=== PATIENT | female | born 1940 | race Two or more races ===

== ENCOUNTER 2017-06-14 13:46 | Inpatient (IN) | payer MEDICARE, OTHER ==
[~2017-06-14] VITALS: Ht 167.6 cm; Wt 66.7 kg
[2017-06-14 17:17] VITALS: BP 140/75
[2017-06-14 19:49] LABS: BASOPHILS % (AUTO) 1.5 % (0.0-2.0); EOSINOPHILS % (AUTO) 2.4 % (0.0-3.0); LYMPHOCYTES % (AUTO) 32.5 % (20.0-45.0); MEAN CORPUSCULAR HEMOGLOBIN 30.2 PG (27.0-31.0); MEAN CORPUSCULAR HGB CONC 31.2 G/DL (32.0-36.0); MEAN CORPUSCULAR VOLUME 97 FL (80-99); MEAN PLATELET VOLUME 6.8 FL (6.5-10.1); MONOCYTES % (AUTO) 7.4 % (1.0-10.0); NEUTROPHILS % (AUTO) 56.1 % (45.0-75.0); PLATELET COUNT 205 K/UL (150-450); RED BLOOD COUNT 3.52 M/UL (4.20-5.40); RED CELL DISTRIBUTION WIDTH 16.3 % (11.6-14.8)
[2017-06-14 20:00] VITALS: BP 147/75
[2017-06-14 20:01] LABS: ALANINE AMINOTRANSFERASE 12 U/L (12-78); ANION GAP 12 mmol/L (5-15); ASPARTATE AMINO TRANSFERASE 11 U/L (15-37); CALCIUM 9.1 MG/DL (8.5-10.1); CARBON DIOXIDE 21 MMOL/L (21-32); CHLORIDE 109 MMOL/L (98-107); CREATININE 1.6 MG/DL (0.55-1.30); POTASSIUM 4.3 MMOL/L (3.5-5.1); SODIUM 142 MMOL/L (136-145); TOTAL PROTEIN 6.8 G/DL (6.4-8.2)
[2017-06-14] MEDS ORDERED: Nitroglycerin Subl 0.4mg tab SL PRN (21:15)
[2017-06-14] MEDS ORDERED: Miralax 17gm pkt ORAL PRN (21:15)
[2017-06-14] MEDS ORDERED: Albuterol/Ipratropium 3ml neb HHN PRN (21:15)
[2017-06-14] MEDS ORDERED: LORazepam Inj 2mg/ml 1ml IV PRN (21:15)
[2017-06-14] MEDS ORDERED: Morphine Sulfate 2mg/ml Inj IVP PRN (21:15)
[2017-06-14] MEDS ORDERED: Mylanta II UD 30ml ORAL PRN (21:15)
[2017-06-14] MEDS: NovoLOG Insulin Flexpen SUBQ SCH (23:00)
[2017-06-15] VITALS: BP 125/76
[2017-06-15 04:00] VITALS: BP 151/76
[2017-06-15] MEDS: NovoLOG Insulin Flexpen SUBQ SCH ×4 (06:30→21:00)
[2017-06-15 08:13] LABS: BASOPHILS % (AUTO) 1.5 % (0.0-2.0); EOSINOPHILS % (AUTO) 2.3 % (0.0-3.0); MEAN CORPUSCULAR HEMOGLOBIN 32.2 PG (27.0-31.0); MEAN CORPUSCULAR HGB CONC 34.4 G/DL (32.0-36.0); MEAN CORPUSCULAR VOLUME 94 FL (80-99); MEAN PLATELET VOLUME 7.5 FL (6.5-10.1); MONOCYTES % (AUTO) 7.2 % (1.0-10.0); PLATELET COUNT 216 K/UL (150-450); RED BLOOD COUNT 3.48 M/UL (4.20-5.40); RED CELL DISTRIBUTION WIDTH 16.3 % (11.6-14.8); WHITE BLOOD COUNT 6.2 K/UL (4.8-10.8)
[2017-06-15 08:16] VITALS: BP 147/77
[2017-06-15 08:27] LABS: PROTHROMBIN TIME 10.6 SEC (9.30-11.50)
[2017-06-15 08:34] LABS: ALANINE AMINOTRANSFERASE 11 U/L (12-78); ANION GAP 10 mmol/L (5-15); ASPARTATE AMINO TRANSFERASE 15 U/L (15-37); CALCIUM 8.9 MG/DL (8.5-10.1); CARBON DIOXIDE 24 MMOL/L (21-32); CHLORIDE 109 MMOL/L (98-107); CHOLESTEROL 163 MG/DL (< 200); CHOLESTEROL/HDL RATIO 3.4 (3.3-4.4); CREATININE 1.5 MG/DL (0.55-1.30); POTASSIUM 4.3 MMOL/L (3.5-5.1); SODIUM 143 MMOL/L (136-145); THYROID STIMULATING HORMONE 1.799 uiU/mL (0.360-3.740); TOTAL PROTEIN 6.6 G/DL (6.4-8.2)
[2017-06-15] MEDS: Heparin 5000 units/ml inj SUBQ SCH ×2 (09:00→21:56)
[2017-06-15 11:53] VITALS: BP 108/53
--- NOTE | 2017-06-15 12:23 | Neurology Progress Note ---
Objective Physical Exam Last Vital Signs Date Time Temp Pulse Resp B/P (MAP) Pulse Ox O2 Delivery O2 Flow Rate FiO2 06/15/17 11:53 97.9 118 18 108/53 97 Room Air Laboratory Tests Test 06/14/17 19:30 06/15/17 07:05 White Blood Count 7.0 K/UL (4.8-10.8) 6.2 K/UL (4.8-10.8) Red Blood Count 3.52 M/UL (4.20-5.40) L 3.48 M/UL (4.20-5.40) L Hemoglobin 10.6 G/DL (12.0-16.0) L 11.2 G/DL (12.0-16.0) L Hematocrit 34.1 % (37.0-47.0) L 32.7 % (37.0-47.0) L Mean Corpuscular Volume 97 FL (80-99) 94 FL (80-99) Mean Corpuscular Hemoglobin 30.2 PG (27.0-31.0) 32.2 PG (27.0-31.0) H Mean Corpuscular Hemoglobin Concent 31.2 G/DL (32.0-36.0) L 34.4 G/DL (32.0-36.0) Red Cell Distribution Width 16.3 % (11.6-14.8) H 16.3 % (11.6-14.8) H Platelet Count 205 K/UL (150-450) 216 K/UL (150-450) Mean Platelet Volume 6.8 FL (6.5-10.1) 7.5 FL (6.5-10.1) Neutrophils (%) (Auto) 56.1 % (45.0-75.0) 52.0 % (45.0-75.0) Lymphocytes (%) (Auto) 32.5 % (20.0-45.0) 37.0 % (20.0-45.0) Monocytes (%) (Auto) 7.4 % (1.0-10.0) 7.2 % (1.0-10.0) Eosinophils (%) (Auto) 2.4 % (0.0-3.0) 2.3 % (0.0-3.0) Basophils (%) (Auto) 1.5 % (0.0-2.0) 1.5 % (0.0-2.0) Sodium Level 142 MMOL/L (136-145) 143 MMOL/L (136-145) Potassium Level 4.3 MMOL/L (3.5-5.1) 4.3 MMOL/L (3.5-5.1) Chloride Level 109 MMOL/L (98-107) H 109 MMOL/L (98-107) H Carbon Dioxide Level 21 MMOL/L (21-32) 24 MMOL/L (21-32) Anion Gap 12 mmol/L (5-15) 10 mmol/L (5-15) Blood Urea Nitrogen 34 mg/dL (7-18) H 29 mg/dL (7-18) H Creatinine 1.6 MG/DL (0.55-1.30) H 1.5 MG/DL (0.55-1.30) H Estimat Glomerular Filtration Rate mL/min (>60) mL/min (>60) Glucose Level 174 MG/DL (74-106) H 113 MG/DL (74-106) H Calcium Level 9.1 MG/DL (8.5-10.1) 8.9 MG/DL (8.5-10.1) Total Bilirubin 0.3 MG/DL (0.2-1.0) 0.4 MG/DL (0.2-1.0) Aspartate Amino Transf (AST/SGOT) 11 U/L (15-37) L 15 U/L (15-37) Alanine Aminotransferase (ALT/SGPT) 12 U/L (12-78) 11 U/L (12-78) L Alkaline Phosphatase 68 U/L (46-116) 61 U/L (46-116) Total Protein 6.8 G/DL (6.4-8.2) 6.6 G/DL (6.4-8.2) Albumin 3.4 G/DL (3.4-5.0) 3.3 G/DL (3.4-5.0) L Globulin 3.4 g/dL 3.3 g/dL Albumin/Globulin Ratio 1.0 (1.0-2.7) 1.0 (1.0-2.7) Prothrombin Time 10.6 SEC (9.30-11.50) Prothromb Time International Ratio 1.0 (0.9-1.1) Activated Partial Thromboplast Time 22 SEC (23-33) L Uric Acid Pending Total Creatine Kinase Pending Triglycerides Level 122 MG/DL (0-200) Cholesterol Level 163 MG/DL (< 200) LDL Cholesterol 103 mg/dL (<100) H HDL Cholesterol 48 MG/DL (40-60) Cholesterol/HDL Ratio 3.4 (3.3-4.4) Thyroid Stimulating Hormone (TSH) 1.799 uiU/mL (0.360-3.740) Impression/Recommendations Recommendations # [id number] JESSICA CHRISTOPHER Jun 15, 2017 12:23
[2017-06-15 12:26] LABS: URIC ACID 7.3 MG/DL (2.6-7.2)
--- NOTE | 2017-06-15 13:11 | Diagnostic Imaging Report ---
Indication: Dyspnea Comparison: None A single view chest radiograph was obtained. Findings: Cardiomediastinal appearance is within normal limits for age. Sternotomy is present. Aorta is calcified. Pulmonary vascularity is appropriate. The diaphragmatic contour is smooth and costophrenic angles are sharp. No pleural effusions are identified. The bones are osteopenic. Impression: No acute findings
--- NOTE | 2017-06-15 14:19 | Consultation ---
History of Present Illness General Date patient seen: Jun 15, 2017 Chief Complaint: syncope Reason for Consultation: inpatient management Present Illness HPI 76 year old female with hx of HTN, DM, Stent, CVA, CAD, dementia, was taken by paramedics to [facility] with CC of acute encephalopathy. director of primary care witness some shaking. She urinated on herself as well. The initial evaluation at [place] was negative. She is transferred to [facility] for further evaluation. Pts children are at bed site who are helping with HPI. Pt seems awake, comfortable and can answer simple questions. Allergies: Coded Allergies: No Known Allergies (Unverified , 06/14/17) Patient History Healthcare decision maker N Resuscitation status Full Code Advanced Directive on File Past Medical/Surgical History Past Medical/Surgical History: (1) Diabetes mellitus (2) CAD (coronary artery disease) (3) Dementia Review of Systems All Other Systems: negative except mentioned in HPI Physical Exam General Appearance: WD/WN, lethargic Lines, tubes and drains: peripheral, central line HEENT: normocephalic, atraumatic Neck: non-tender, normal alignment Respiratory/Chest: chest wall non-tender, lungs clear, no respiratory distress Breasts: no masses Cardiovascular/Chest: normal peripheral pulses, regular rhythm Abdomen: normal bowel sounds, non tender Genitourinary/Rectal: normal genital exam, normal rectal exam Extremities: normal range of motion Last 24 Hour Vital Signs Date Time Temp Pulse Resp B/P (MAP) Pulse Ox O2 Delivery O2 Flow Rate FiO2 06/15/17 12:00 80 06/15/17 11:53 97.9 118 18 108/53 97 Room Air 06/15/17 08:16 97.2 76 18 147/77 97 Room Air 06/15/17 08:00 76 06/15/17 04:00 97.0 71 21 151/76 96 Room Air 06/15/17 04:00 88 06/15/17 00:00 93 06/15/17 00:00 98.1 91 20 125/76 97 Room Air 06/14/17 20:00 81 06/14/17 20:00 97.3 83 23 147/75 97 Room Air 06/14/17 17:17 98.1 76 18 140/75 98 Room Air Intake and Output 06/15/17 06/16/17 19:00 07:00 Intake Total 120 ml Balance 120 ml Intake Oral 120 ml # Voids 1 # Bowel Movements 1 Laboratory Tests Test 06/14/17 19:30 06/15/17 07:05 White Blood Count 7.0 K/UL (4.8-10.8) 6.2 K/UL (4.8-10.8) Red Blood Count 3.52 M/UL (4.20-5.40) L 3.48 M/UL (4.20-5.40) L Hemoglobin 10.6 G/DL (12.0-16.0) L 11.2 G/DL (12.0-16.0) L Hematocrit 34.1 % (37.0-47.0) L 32.7 % (37.0-47.0) L Mean Corpuscular Volume 97 FL (80-99) 94 FL (80-99) Mean Corpuscular Hemoglobin 30.2 PG (27.0-31.0) 32.2 PG (27.0-31.0) H Mean Corpuscular Hemoglobin Concent 31.2 G/DL (32.0-36.0) L 34.4 G/DL (32.0-36.0) Red Cell Distribution Width 16.3 % (11.6-14.8) H 16.3 % (11.6-14.8) H Platelet Count 205 K/UL (150-450) 216 K/UL (150-450) Mean Platelet Volume 6.8 FL (6.5-10.1) 7.5 FL (6.5-10.1) Neutrophils (%) (Auto) 56.1 % (45.0-75.0) 52.0 % (45.0-75.0) Lymphocytes (%) (Auto) 32.5 % (20.0-45.0) 37.0 % (20.0-45.0) Monocytes (%) (Auto) 7.4 % (1.0-10.0) 7.2 % (1.0-10.0) Eosinophils (%) (Auto) 2.4 % (0.0-3.0) 2.3 % (0.0-3.0) Basophils (%) (Auto) 1.5 % (0.0-2.0) 1.5 % (0.0-2.0) Sodium Level 142 MMOL/L (136-145) 143 MMOL/L (136-145) Potassium Level 4.3 MMOL/L (3.5-5.1) 4.3 MMOL/L (3.5-5.1) Chloride Level 109 MMOL/L (98-107) H 109 MMOL/L (98-107) H Carbon Dioxide Level 21 MMOL/L (21-32) 24 MMOL/L (21-32) Anion Gap 12 mmol/L (5-15) 10 mmol/L (5-15) Blood Urea Nitrogen 34 mg/dL (7-18) H 29 mg/dL (7-18) H Creatinine 1.6 MG/DL (0.55-1.30) H 1.5 MG/DL (0.55-1.30) H Estimat Glomerular Filtration Rate mL/min (>60) mL/min (>60) Glucose Level 174 MG/DL (74-106) H 113 MG/DL (74-106) H Calcium Level 9.1 MG/DL (8.5-10.1) 8.9 MG/DL (8.5-10.1) Total Bilirubin 0.3 MG/DL (0.2-1.0) 0.4 MG/DL (0.2-1.0) Aspartate Amino Transf (AST/SGOT) 11 U/L (15-37) L 15 U/L (15-37) Alanine Aminotransferase (ALT/SGPT) 12 U/L (12-78) 11 U/L (12-78) L Alkaline Phosphatase 68 U/L (46-116) 61 U/L (46-116) Total Protein 6.8 G/DL (6.4-8.2) 6.6 G/DL (6.4-8.2) Albumin 3.4 G/DL (3.4-5.0) 3.3 G/DL (3.4-5.0) L Globulin 3.4 g/dL 3.3 g/dL Albumin/Globulin Ratio 1.0 (1.0-2.7) 1.0 (1.0-2.7) Prothrombin Time 10.6 SEC (9.30-11.50) Prothromb Time International Ratio 1.0 (0.9-1.1) Activated Partial Thromboplast Time 22 SEC (23-33) L Uric Acid 7.3 MG/DL (2.6-7.2) H Total Creatine Kinase 42 U/L (26-308) Triglycerides Level 122 MG/DL (0-200) Cholesterol Level 163 MG/DL (< 200) LDL Cholesterol 103 mg/dL (<100) H HDL Cholesterol 48 MG/DL (40-60) Cholesterol/HDL Ratio 3.4 (3.3-4.4) Thyroid Stimulating Hormone (TSH) 1.799 uiU/mL (0.360-3.740) Height (Feet): 5 Height (Inches): 6.00 Weight (Pounds): 147 Medications Current Medications Medications (Trade) Dose Ordered Sig/Yoana Route PRN Reason Start Time Stop Time Status Last Admin Dose Admin Acetaminophen (Tylenol) 650 mg Q4H PRN ORAL fever 06/14/17 21:15 07/14/17 21:14 Al Hydroxide/Mg Hydroxide (Mylanta II) 30 ml Q6H PRN ORAL dyspepsia 06/14/17 21:15 07/14/17 21:14 Albuterol/ Ipratropium (DuoNeb 0.5-3(2.5)mg/3ml) 3 ml Q4H PRN HHN Shortness of Breath 06/14/17 21:15 06/19/17 21:14 Clonidine HCl (Catapres) 0.1 mg Q4H PRN ORAL SBP > 160 06/14/17 21:15 07/14/17 21:14 Dextrose (Dextrose 50%) STAT PRN IV Hypoglycemia 06/14/17 21:15 07/14/17 21:14 Heparin Sodium (Porcine) (Heparin 5000 units/ml) 5,000 units EVERY 12 HOURS SUBQ 06/15/17 09:00 07/15/17 08:59 Insulin Aspart (NovoLOG) BEFORE MEALS AND HS SUBQ 06/14/17 23:00 07/14/17 22:59 Lorazepam (Ativan 2mg/ml 1ml) 0.5 mg Q4H PRN IV For Anxiety 06/14/17 21:15 06/21/17 21:14 Morphine Sulfate (Morphine Sulfate) 1 mg Q4H PRN IVP For Pain 7-10 06/14/17 21:15 06/21/17 21:14 Nitroglycerin (Ntg) 0.4 mg Q5M X 3 DOSES PRN SL Prn Chest Pain 06/14/17 21:15 07/14/17 21:14 Ondansetron HCl (Zofran) 4 mg Q6H PRN IVP Nausea & Vomiting 06/14/17 21:15 07/14/17 21:14 Polyethylene Glycol (Miralax) 17 gm HSPRN PRN ORAL Constipation 06/14/17 21:15 07/14/17 21:14 Temazepam (Restoril) 15 mg HSPRN PRN ORAL Insomnia 06/14/17 21:15 06/21/17 21:14 Assessment/Plan Problem List: (1) Syncope ICD Codes: R55 - Syncope and collapse SNOMED: 953818310 (2) Diabetes mellitus ICD Codes: E11.9 - Type 2 diabetes mellitus without complications SNOMED: 75252617 (3) CAD (coronary artery disease) ICD Codes: I25.10 - Atherosclerotic heart disease of [place] coronary artery without angina pectoris SNOMED: 40911139 (4) Dementia ICD Codes: F03.90 - Unspecified dementia without behavioral disturbance SNOMED: 26663730 Assessment/Plan neuro evaluation carotid artey echo cardiology to see sliding scale monitor BP JERI KHAN Jun 15, 2017 14:18
[2017-06-15 15:40] VITALS: BP 105/51
--- NOTE | 2017-06-15 15:42 | Cardiology Progress Note ---
Assessment/Plan Assessment/Plan [id number] check orthosttic vital ekg trop if tele neg consider dc to home to fu with ep for icd implantation as outpt hodzachary burns Objective Last 24 Hour Vital Signs Date Time Temp Pulse Resp B/P (MAP) Pulse Ox O2 Delivery O2 Flow Rate FiO2 06/15/17 12:00 80 06/15/17 11:53 97.9 118 18 108/53 97 Room Air 06/15/17 08:16 97.2 76 18 147/77 97 Room Air 06/15/17 08:00 76 06/15/17 04:00 97.0 71 21 151/76 96 Room Air 06/15/17 04:00 88 06/15/17 00:00 93 06/15/17 00:00 98.1 91 20 125/76 97 Room Air 06/14/17 20:00 81 06/14/17 20:00 97.3 83 23 147/75 97 Room Air 06/14/17 17:17 98.1 76 18 140/75 98 Room Air Intake and Output 06/15/17 06/16/17 19:00 07:00 Intake Total 120 ml Balance 120 ml Intake Oral 120 ml # Voids 1 # Bowel Movements 1 Laboratory Tests Test 06/14/17 19:30 06/15/17 07:05 White Blood Count 7.0 K/UL (4.8-10.8) 6.2 K/UL (4.8-10.8) Red Blood Count 3.52 M/UL (4.20-5.40) L 3.48 M/UL (4.20-5.40) L Hemoglobin 10.6 G/DL (12.0-16.0) L 11.2 G/DL (12.0-16.0) L Hematocrit 34.1 % (37.0-47.0) L 32.7 % (37.0-47.0) L Mean Corpuscular Volume 97 FL (80-99) 94 FL (80-99) Mean Corpuscular Hemoglobin 30.2 PG (27.0-31.0) 32.2 PG (27.0-31.0) H Mean Corpuscular Hemoglobin Concent 31.2 G/DL (32.0-36.0) L 34.4 G/DL (32.0-36.0) Red Cell Distribution Width 16.3 % (11.6-14.8) H 16.3 % (11.6-14.8) H Platelet Count 205 K/UL (150-450) 216 K/UL (150-450) Mean Platelet Volume 6.8 FL (6.5-10.1) 7.5 FL (6.5-10.1) Neutrophils (%) (Auto) 56.1 % (45.0-75.0) 52.0 % (45.0-75.0) Lymphocytes (%) (Auto) 32.5 % (20.0-45.0) 37.0 % (20.0-45.0) Monocytes (%) (Auto) 7.4 % (1.0-10.0) 7.2 % (1.0-10.0) Eosinophils (%) (Auto) 2.4 % (0.0-3.0) 2.3 % (0.0-3.0) Basophils (%) (Auto) 1.5 % (0.0-2.0) 1.5 % (0.0-2.0) Sodium Level 142 MMOL/L (136-145) 143 MMOL/L (136-145) Potassium Level 4.3 MMOL/L (3.5-5.1) 4.3 MMOL/L (3.5-5.1) Chloride Level 109 MMOL/L (98-107) H 109 MMOL/L (98-107) H Carbon Dioxide Level 21 MMOL/L (21-32) 24 MMOL/L (21-32) Anion Gap 12 mmol/L (5-15) 10 mmol/L (5-15) Blood Urea Nitrogen 34 mg/dL (7-18) H 29 mg/dL (7-18) H Creatinine 1.6 MG/DL (0.55-1.30) H 1.5 MG/DL (0.55-1.30) H Estimat Glomerular Filtration Rate mL/min (>60) mL/min (>60) Glucose Level 174 MG/DL (74-106) H 113 MG/DL (74-106) H Calcium Level 9.1 MG/DL (8.5-10.1) 8.9 MG/DL (8.5-10.1) Total Bilirubin 0.3 MG/DL (0.2-1.0) 0.4 MG/DL (0.2-1.0) Aspartate Amino Transf (AST/SGOT) 11 U/L (15-37) L 15 U/L (15-37) Alanine Aminotransferase (ALT/SGPT) 12 U/L (12-78) 11 U/L (12-78) L Alkaline Phosphatase 68 U/L (46-116) 61 U/L (46-116) Total Protein 6.8 G/DL (6.4-8.2) 6.6 G/DL (6.4-8.2) Albumin 3.4 G/DL (3.4-5.0) 3.3 G/DL (3.4-5.0) L Globulin 3.4 g/dL 3.3 g/dL Albumin/Globulin Ratio 1.0 (1.0-2.7) 1.0 (1.0-2.7) Prothrombin Time 10.6 SEC (9.30-11.50) Prothromb Time International Ratio 1.0 (0.9-1.1) Activated Partial Thromboplast Time 22 SEC (23-33) L Uric Acid 7.3 MG/DL (2.6-7.2) H Total Creatine Kinase 42 U/L (26-308) Triglycerides Level 122 MG/DL (0-200) Cholesterol Level 163 MG/DL (< 200) LDL Cholesterol 103 mg/dL (<100) H HDL Cholesterol 48 MG/DL (40-60) Cholesterol/HDL Ratio 3.4 (3.3-4.4) Thyroid Stimulating Hormone (TSH) 1.799 uiU/mL (0.360-3.740) HIRO GABRIEL Jun 15, 2017 15:42
--- NOTE | 2017-06-15 15:47 | Diagnostic Imaging Report ---
Indication: Altered mental status Technique: Contiguous 5 mm thick transaxial imaging of the head obtained in a Siemens Sensation [address] scanner. Soft tissue and bone windows generated. Total Dose length Product (DLP): [address] Dose Index Volume (CTDIvol): 70.38, 0.15 mGy Comparison: none Findings: The ventricles are large and disproportionately large compared to the degree of atrophy present which is mild. Possibility of normal pressure hydrocephalus should be considered. There is a cavum septum pellucida noted. There is no mass effect or edema. There is no midline shift. There is no acute intracranial blood identified. Vascular calcifications within the intracranial carotid and vertebral arteries noted. Impression: Consider normal pressure hydrocephalus given disproportionate ventriculomegaly. Mild atrophy is noted. Atherosclerotic disease The CT scanner at [facility] is accredited by the [employer] and the scans are performed using dose optimization techniques as appropriate to a performed exam including Automatic Exposure control.
--- NOTE | 2017-06-15 16:11 | History & Physical ---
History and Physical History & Physicial Dictated for Int Med-Dr Beckman no. [id number] TRIPP RODRIGUEZ Jun 15, 2017 16:11
--- NOTE | 2017-06-15 16:12 | Diagnostic Imaging Report ---
Indication:Elevated Bun and Creatinine. Technique: Grayscale and duplex Doppler imaging of the kidneys performed. Comparison: None Findings: The size, contour, and echogenicity of both kidneys are within normal limits. Both kidneys are between 9 and 10 cm. There is no hydronephrosis. The IVC and urinary bladder are unremarkable. Impression: Negative study
[2017-06-15] MEDS ORDERED: NovoLOG Insulin Flexpen SUBQ SCH (16:30)
--- NOTE | 2017-06-15 16:56 | Cardiac Electrophysiology PN ---
Subjective Subjective EP consult dictated. 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 Evaluated by EP at [facility] also and was bening scheduled for ICD implant. DW family re their choice of having it done at [facility]. They will make the decision. Objective Last 24 Hour Vital Signs Date Time Temp Pulse Resp B/P (MAP) Pulse Ox O2 Delivery O2 Flow Rate FiO2 06/15/17 15:40 97.0 84 18 105/51 96 Room Air 06/15/17 12:00 80 06/15/17 11:53 97.9 118 18 108/53 97 Room Air 06/15/17 08:16 97.2 76 18 147/77 97 Room Air 06/15/17 08:00 76 06/15/17 04:00 97.0 71 21 151/76 96 Room Air 06/15/17 04:00 88 06/15/17 00:00 93 06/15/17 00:00 98.1 91 20 125/76 97 Room Air 06/14/17 20:00 81 06/14/17 20:00 97.3 83 23 147/75 97 Room Air 06/14/17 17:17 98.1 76 18 140/75 98 Room Air Intake and Output 06/15/17 06/16/17 19:00 07:00 Intake Total 240 ml Balance 240 ml Intake Oral 240 ml # Voids 2 # Bowel Movements 1 Laboratory Tests Test 06/14/17 19:30 06/15/17 07:05 White Blood Count 7.0 K/UL (4.8-10.8) 6.2 K/UL (4.8-10.8) Red Blood Count 3.52 M/UL (4.20-5.40) L 3.48 M/UL (4.20-5.40) L Hemoglobin 10.6 G/DL (12.0-16.0) L 11.2 G/DL (12.0-16.0) L Hematocrit 34.1 % (37.0-47.0) L 32.7 % (37.0-47.0) L Mean Corpuscular Volume 97 FL (80-99) 94 FL (80-99) Mean Corpuscular Hemoglobin 30.2 PG (27.0-31.0) 32.2 PG (27.0-31.0) H Mean Corpuscular Hemoglobin Concent 31.2 G/DL (32.0-36.0) L 34.4 G/DL (32.0-36.0) Red Cell Distribution Width 16.3 % (11.6-14.8) H 16.3 % (11.6-14.8) H Platelet Count 205 K/UL (150-450) 216 K/UL (150-450) Mean Platelet Volume 6.8 FL (6.5-10.1) 7.5 FL (6.5-10.1) Neutrophils (%) (Auto) 56.1 % (45.0-75.0) 52.0 % (45.0-75.0) Lymphocytes (%) (Auto) 32.5 % (20.0-45.0) 37.0 % (20.0-45.0) Monocytes (%) (Auto) 7.4 % (1.0-10.0) 7.2 % (1.0-10.0) Eosinophils (%) (Auto) 2.4 % (0.0-3.0) 2.3 % (0.0-3.0) Basophils (%) (Auto) 1.5 % (0.0-2.0) 1.5 % (0.0-2.0) Sodium Level 142 MMOL/L (136-145) 143 MMOL/L (136-145) Potassium Level 4.3 MMOL/L (3.5-5.1) 4.3 MMOL/L (3.5-5.1) Chloride Level 109 MMOL/L (98-107) H 109 MMOL/L (98-107) H Carbon Dioxide Level 21 MMOL/L (21-32) 24 MMOL/L (21-32) Anion Gap 12 mmol/L (5-15) 10 mmol/L (5-15) Blood Urea Nitrogen 34 mg/dL (7-18) H 29 mg/dL (7-18) H Creatinine 1.6 MG/DL (0.55-1.30) H 1.5 MG/DL (0.55-1.30) H Estimat Glomerular Filtration Rate mL/min (>60) mL/min (>60) Glucose Level 174 MG/DL (74-106) H 113 MG/DL (74-106) H Calcium Level 9.1 MG/DL (8.5-10.1) 8.9 MG/DL (8.5-10.1) Total Bilirubin 0.3 MG/DL (0.2-1.0) 0.4 MG/DL (0.2-1.0) Aspartate Amino Transf (AST/SGOT) 11 U/L (15-37) L 15 U/L (15-37) Alanine Aminotransferase (ALT/SGPT) 12 U/L (12-78) 11 U/L (12-78) L Alkaline Phosphatase 68 U/L (46-116) 61 U/L (46-116) Total Protein 6.8 G/DL (6.4-8.2) 6.6 G/DL (6.4-8.2) Albumin 3.4 G/DL (3.4-5.0) 3.3 G/DL (3.4-5.0) L Globulin 3.4 g/dL 3.3 g/dL Albumin/Globulin Ratio 1.0 (1.0-2.7) 1.0 (1.0-2.7) Prothrombin Time 10.6 SEC (9.30-11.50) Prothromb Time International Ratio 1.0 (0.9-1.1) Activated Partial Thromboplast Time 22 SEC (23-33) L Uric Acid 7.3 MG/DL (2.6-7.2) H Total Creatine Kinase 42 U/L (26-308) Triglycerides Level 122 MG/DL (0-200) Cholesterol Level 163 MG/DL (< 200) LDL Cholesterol 103 mg/dL (<100) H HDL Cholesterol 48 MG/DL (40-60) Cholesterol/HDL Ratio 3.4 (3.3-4.4) Thyroid Stimulating Hormone (TSH) 1.799 uiU/mL (0.360-3.740) ULISES ALVAREZ Jun 15, 2017 16:56
[2017-06-15] MEDS: Nateglinide 60mg tab ORAL SCH (17:00)
[2017-06-15 18:01] LABS: APPEARANCE,URINE CLEAR; KETONES,URINE NEGATIVE (NEGATIVE); LEUKOCYTE ESTERASE ,URINE 1+ (NEGATIVE); NITRITE,URINE NEGATIVE (NEGATIVE); PH,URINE 5 (4.5-8.0); PROTEIN,URINE NEGATIVE (NEGATIVE); UROBILINOGEN,URINE NORMAL MG/DL (0.0-1.0)
[2017-06-15] MEDS: Aspirin Baby 81mg ORAL SCH (18:10)
[2017-06-15 18:34] LABS: AMORPHOUS SEDIMENT,UR FEW /LPF; BACTERIA,URINE FEW /HPF; SQUAMOUS EPITHELIAL CELL,UR FEW /LPF (NONE/OCC)
[2017-06-15 20:24] VITALS: BP 119/57
--- NOTE | 2017-06-15 22:00 | History and Physical Report ---
DATE OF ADMISSION: 06/14/2017 CHIEF COMPLAINT: The patient is a 76-year-old female, presents with chief complaint of "I passed out." HISTORY OF PRESENT ILLNESS: The patient has a history of coronary artery disease. The patient is status post coronary artery bypass graft with subsequent stent placement. The patient was at home with her daughter yesterday, 06/14/2017. The patient's slumped over after breakfast. This lasted a few minutes. A 911 was called. Upon arrival by EMS, the patient was alert again. The patient was initially transported to [facility] emergency room. The patient is transferred to [facility] for insurance purposes. The patient is admitted for syncopal episode to rule out acute cerebrovascular accident versus acute myocardial infarction. REVIEW OF SYSTEMS: CONSTITUTIONAL: The patient denies weight loss or weight gain. The patient denies fevers or chills. HEENT: The patient denies ear or throat pain. The patient denies headache. CARDIOVASCULAR: The patient denies palpitations or chest pain. CHEST: The patient denies wheezes or shortness of breath. ABDOMINAL: The patient denies nausea, vomiting, diarrhea, or constipation. GENITOURINARY: The patient denies dysuria or increased frequency of urination. NEUROMUSCULAR: The patient complains of syncopal episode as above. The patient denies seizures or generalized weakness. PAST MEDICAL HISTORY: Significant for: 1. Cerebrovascular accident in 10/2016. 2. Diabetes type 2. 3. Coronary artery disease. 4. Congestive heart failure with an ejection fraction of 20%. PAST SURGICAL HISTORY: Significant for coronary artery bypass graft. CURRENT MEDICATIONS: 1. Lasix of unknown dose daily. 2. Plavix of unknown dose daily ALLERGIES: No known drug allergies. SOCIAL HISTORY: The patient is single. The patient lives with her adult daughter, Archana Harding. The patient denies tobacco or alcohol use. PHYSICAL EXAMINATION: VITAL SIGNS: Temperature 97.0, respirations 21, pulse 80, and blood pressure 151/76. GENERAL: The patient is a well-developed and well-nourished female, in no apparent distress. HEENT: Eyes, pupils are equal and responsive to light and accommodation. Extraocular movements are intact. NECK: Supple without lymphadenopathy. CHEST: Lungs are clear to auscultation bilaterally without wheezes or rales. CARDIOVASCULAR: Regular rhythm and rate. S1 and S2 normal without murmurs, rubs, or gallops. ABDOMEN: Soft, nontender, and nondistended. Positive bowel sounds. No evidence of hepatosplenomegaly. Currently, no rebound or guarding noted. EXTREMITIES: Negative for clubbing, cyanosis, or edema. RECTAL/GENITAL: Refused. NEUROLOGIC: Cranial nerves II through XII are grossly intact without focal deficits. Motor strength is 5/5 bilaterally. Deep tendon reflexes are 2+ plantar. LABORATORY STUDIES: WBC is 7.2, hemoglobin 10.6, hematocrit 34.1, and platelets 205,000. Sodium 142, potassium 4.3, chloride 109, CO2 21, BUN 31, creatinine 1.6, and glucose 174. Troponin and BNP are pending. A 12-lead EKG is pending. ASSESSMENT: This is a 76-year-old female with: 1. Syncopal episode. 2. Coronary artery disease. 3. History of cerebrovascular disease. 4. Diabetes type 2. 5. Congestive heart failure. TREATMENT: 1. Syncopal episode. A Neurology consultation has been obtained with Dr. Ortiz. An MRI of the brain is pending. We will follow recommendations of Dr. Ortiz. 2. Coronary artery disease/congestive heart failure. Cardiology consultation has been obtained with Dr. Maik Us. We will follow recommendations of Cardiology. Serial troponin levels will be run. 3. Diabetes type 2. NovoLog sliding scale has been instituted. Myron Diaz M.D. DR: BON JOB#: [id number] CC:
[2017-06-16 00:18] VITALS: BP 131/72
[2017-06-16 04:00] VITALS: BP 129/67
[2017-06-16] MEDS: NovoLOG Insulin Flexpen SUBQ SCH ×4 (06:30→21:00)
[2017-06-16] MEDS: Nateglinide 60mg tab ORAL SCH ×3 (06:46→18:08)
--- NOTE | 2017-06-16 07:34 | Cardiology Progress Note ---
Assessment/Plan Assessment/Plan ? loc / syncope cm cad hs tele reviewed over nite neg orthostatic ordered yest not yet doen will reorder agree with the need for icd implantation d/w dr livingston last nite who offered to implant this admisiion her however dtr indicates they have to make plans with in the family and for post op care and do not wish to have done here at this time await result of other test Subjective Cardiovascular: Denies: chest pain, lightheadedness Respiratory: Denies: shortness of breath Gastrointestinal/Abdominal: Denies: abdominal pain Genitourinary: Denies: burning Objective Last 24 Hour Vital Signs Date Time Temp Pulse Resp B/P (MAP) Pulse Ox O2 Delivery O2 Flow Rate FiO2 06/16/17 04:00 74 06/16/17 04:00 97.7 80 19 129/67 97 Room Air 06/16/17 00:18 97.7 73 18 131/72 97 Room Air 06/16/17 00:00 98 06/15/17 20:24 97.6 83 18 119/57 95 Room Air 06/15/17 20:00 98 06/15/17 19:50 83 18 Room Air 06/15/17 16:00 75 06/15/17 15:40 97.0 84 18 105/51 96 Room Air 06/15/17 12:00 80 06/15/17 11:53 97.9 118 18 108/53 97 Room Air 06/15/17 08:16 97.2 76 18 147/77 97 Room Air 06/15/17 08:00 76 General Appearance: no apparent distress, alert Cardiovascular: normal rate, regular rhythm Respiratory/Chest: lungs clear Abdomen: normal bowel sounds, non tender, soft Extremities: no swelling Laboratory Tests Test 06/15/17 16:55 06/15/17 17:00 Troponin I 0.028 ng/mL (0.000-0.056) Urine Color Yellow Urine Appearance Clear Urine pH 5 (4.5-8.0) Urine Specific [place] 1.015 (1.005-1.035) Urine Protein Negative (NEGATIVE) Urine Glucose (UA) Negative (NEGATIVE) Urine Ketones Negative (NEGATIVE) Urine Occult Blood 3+ (NEGATIVE) H Urine Nitrite Negative (NEGATIVE) Urine Bilirubin Negative (NEGATIVE) Urine Urobilinogen Normal MG/DL (0.0-1.0) Urine Leukocyte Esterase 1+ (NEGATIVE) H Urine RBC 5-10 /HPF (0 - 2) H Urine WBC 2-4 /HPF (0 - 2) Urine Squamous Epithelial Cells Few /LPF (NONE/OCC) Urine Amorphous Sediment Few /LPF (NONE) H Urine Bacteria Few /HPF (NONE) Urine Eosinophils None seen Urine Random Sodium 60 MEQ/L (20-110) Urine Potassium Timed 51 mmol/L (12-62) HIRO GABRIEL Jun 16, 2017 07:34
[2017-06-16 08:00] VITALS: BP 120/62
[2017-06-16 08:17] LABS: BASOPHILS % (AUTO) 1.2 % (0.0-2.0); EOSINOPHILS % (AUTO) 2.7 % (0.0-3.0); LYMPHOCYTES % (AUTO) 41.9 % (20.0-45.0); MEAN CORPUSCULAR HEMOGLOBIN 31.6 PG (27.0-31.0); MEAN CORPUSCULAR HGB CONC 33.8 G/DL (32.0-36.0); MEAN CORPUSCULAR VOLUME 93 FL (80-99); MEAN PLATELET VOLUME 7.6 FL (6.5-10.1); MONOCYTES % (AUTO) 6.9 % (1.0-10.0); NEUTROPHILS % (AUTO) 47.4 % (45.0-75.0); PLATELET COUNT 201 K/UL (150-450); RED BLOOD COUNT 3.44 M/UL (4.20-5.40); RED CELL DISTRIBUTION WIDTH 16.1 % (11.6-14.8); WHITE BLOOD COUNT 5.8 K/UL (4.8-10.8)
--- NOTE | 2017-06-16 08:30 | Consultation ---
DATE OF CONSULTATION: 06/15/2017 NEUROLOGICAL CONSULTATION CONSULTING PHYSICIAN: Francis Ortiz M.D. REQUESTING PHYSICIAN: Kishan Beckman M.D. HISTORY OF PRESENT ILLNESS: This 76-year-old female seen in neurological consultation to evaluate the new onset of transient unresponsiveness. According to the patient's family who was present during this examination now that yesterday she was having her breakfast sitting at the table when suddenly she became unresponsive. She was described as being loudly snoring, drooling from her mouth, and shaking. Paramedics were called to the scene. Her blood pressure was systolic 107. She was brought to [facility] where her blood pressure was remaining 102/53. She was afebrile. At the time of arrival, she was alert and oriented. She was suspected to have syncope and transported to this facility for further assessment and treatment. Lab work was obtained. Chemistry panel included BUN of 24, creatinine 1.6, blood sugar 174. Normal TSH. CBC study with hemoglobin 10.6, hematocrit 34.1. Normal coagulation. Since admission until present, there were no further paroxysmal events detected. EKG normal sinus rhythm, rate of 80, suggestive of left bundle-branch block. Chest x-ray, no acute abnormalities, no infiltrate. PAST MEDICAL HISTORY: The patient has a significant cardiac abnormality with CHF, coronary artery disease status post stenting, she is pending defibrillation implant. She had old stroke with occasional shaking in her left upper extremity and history of hypertension. MEDICATIONS: Treatment included Lasix and Plavix. Current treatment also included Plavix, Starlix, ProAmatine, Megace, aspirin. SOCIAL HISTORY: Her daily activities are quite limited. She is using a walker or a cane for moving around the apartment. FAMILY HISTORY: Noncontributory. REVIEW OF SYSTEMS: Currently patient is feeling well. She indicates slight forgetfulness, but no headache, no dizziness. Currently no chest pain, no palpitations, but admitted having some shortness of breath on exertion. She has a difficulty ambulation for several years, using a cane or a walker. PHYSICAL EXAMINATION: GENERAL: A well-developed, well-nourished, pleasant lady, not in acute distress, lying comfortably in bed. VITAL SIGNS: Stable, blood pressure 108/53, temperature . HEENT: Head is normocephalic. No evidence of trauma. Eyes, ears, and throat are clear. NECK: Supple. No meningeal signs. MUSCULOSKELETAL: Unremarkable. There are no deformities. Peripheral pulses 1+ and symmetric. MENTAL STATUS: The patient is alert and oriented x3. Speech is fluent. Language intact. She is somewhat forgetful, poor historian, but pleasant and cooperative. CRANIAL NERVE II: Pupils both responding to light and accommodation. Extraocular movements intact. No nystagmus. CRANIAL NERVE V: Normal corneal responses. CRANIAL NERVE VII: No facial asymmetry. CRANIAL NERVE VIII: Slight decrease in hearing. CRANIAL NERVE IX THROUGH XII: Tongue is in midline. Symmetric palate elevation. MOTOR EXAMINATION: Able to lift both arms against the gravity. There is a slight postural tremor, left arm. Deep tendon reflexes 1+ and symmetric. Plantar responses flexor. Sensory examination, normal to pinprick. Gait not tested, but reported able to ambulate with a walker. IMPRESSION: 1. Transient episodes resembling generalized seizure, rule out a syncopal episode with a seizure component. 2. Hypotension. 3. Coronary artery disease. 4. Hyperlipidemia. RECOMMENDATIONS: 1. Check orthostatic blood pressure. 2. Continue with cardiac monitoring. 3. Continue with the treatment including aspirin, Plavix, and statins. 4. Check electroencephalogram. If positive for seizure activities, we will suggest prophylactic treatment. Thank you for allowing me to see this interesting patient in neurological consultation. Francis Ortiz M.D. DR: Arturo JOB#: [id number] CC:
--- NOTE | 2017-06-16 08:31 | Consultation ---
DATE OF CONSULTATION: 06/15/2017 CARDIAC ELECTROPHYSIOLOGY CONSULTATION CONSULTING PHYSICIAN: Jatinder Childs M.D. REFERRING PHYSICIAN: Kishan Beckman M.D. REASON FOR CONSULTATION: Consideration for defibrillator implantation. HISTORY OF PRESENT ILLNESS: The patient is a 76-year-old lady with history of hypertension, diabetes, and coronary artery disease with history of coronary artery bypass graft x2 as well as severe cardiomyopathy with ejection fraction of 28%. The patient is under a cardiology care of Dr. Deleon, who also was evaluated [address] Taniya Gibson from electrophysiology perspective and has already been scheduled to undergo a defibrillator implantation. The patient, however, had a syncopal episode and was taken to [facility] and then was transferred to [facility] for further evaluation and management. An electrophysiology consultation was requested for consideration of defibrillator implantation. PAST MEDICAL HISTORY: 1. Hypertension. 2. Diabetes. 3. Coronary artery disease with history of coronary artery bypass graft x2. 4. Severe ischemic cardiomyopathy with ejection fraction of 28% based on echocardiogram at [facility]. 5. History of spinal cord gliosis. 6. Dementia of Alzheimer's . SOCIAL HISTORY: She lives at home. The daughter is very involved. Does not smoke or drink alcohol. REVIEW OF SYSTEMS: Review of systems was performed and was negative other than what was mentioned in the history of present illness. PHYSICAL EXAMINATION: VITAL SIGNS: Blood pressure 105/51, pulse 84, respirations 18, and she is afebrile. HEAD AND NECK: Shows no JVD. LUNGS: Clear. CARDIOVASCULAR: Shows regular S1 and S2 with no gallop. Sternotomy is intact. ABDOMEN: Soft. EXTREMITIES: No pitting edema. LABORATORY DATA: Labs show white count 6.2, hemoglobin 11.2, hematocrit 32.7, and platelet count of 216. Sodium 142, potassium 4.3, BUN of 29, creatinine 1.5, and glucose of 113. INR is 1. ASSESSMENT AND PLAN: 1. Syncopal episode in a patient with severe ischemic cardiomyopathy with ejection fraction of 28% as well as the patient has coronary artery bypass graft. I agree with Dr. Gibson, who is fertilizer loader, saw the patient at [facility]. I will discuss this with the patient's primary supervisor offset plate preparation, Dr. Deleon regarding discharging the patient home for ICD implantation or transfer the patient to [facility] for defibrillator implantation or proceeding with defibrillator implantation at [facility]. Depending on the patient and patient's daughter decision, as well as Dr. Beckman, her primary care at [place], as well as Dr. Deleon, the patient's supervisor offset plate preparation as an outpatient, we will make the appropriate arrangement. 2. History of coronary artery disease with history of coronary artery bypass graft. 3. The patient is on aspirin and Plavix. 4. 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 The patient's blood pressure is too low and she is actually on midodrine and Lasix. 5. Diabetes. 6. History of cerebrovascular accident. Thank you very much, Dr. Beckman, for allowing me to participate in the care of this patient. Please do not hesitate to contact me for any questions regarding my evaluation. Jatinder Childs M.D. DR: ADRIAN JOB#: [id number] CC:
--- NOTE | 2017-06-16 08:31 | Consultation ---
DATE OF CONSULTATION: 06/15/2017 CARDIOLOGY CONSULTATION CONSULTING PHYSICIAN: Maik Us M.D. REFERRING PHYSICIAN: Doris Canales M.D. ATTENDING PHYSICIAN: Kishan Beckman M.D. REASON FOR REFERRAL: Questionable syncope. HISTORY OF PRESENT ILLNESS: This is a 76-year-old female, whose information was obtained from the patient's family members at bedside, mainly her daughter. There is a question whether the patient had actually very short momentary episode of loss of consciousness or actually less responsiveness while eating, was felt to possibly be sleeping, and slowly woke up. Eventually, paramedics were summoned. Apparently, no notation was made that the patient was hypotensive. She was taken to the emergency room at [facility] where she was evaluated at that facility and the workups were negative and the patient was transferred out of [facility] for insurance reasons, being admitted to [facility] for that particular reason. Blood pressure readings at [facility] have been documented as 150/51 to 130/53. No hypotension or bradycardia was documented at that facility prior to her being eventually discharged to [facility]. Unfortunately, law researcher run sheet is not available, but according to the patient's family members, there may not have been significant loss of consciousness as she was woken up quickly and responded, although slow to respond. No seizure activity being documented. PAST MEDICAL HISTORY: According to [facility] records is positive for history of anemia, diabetes mellitus, significant mitral regurgitation, ischemic cardiomyopathy, hyperlipidemia, syncope, cerebrovascular accident, and gastroesophageal reflux disease. She has been seen by Dr. Gibson and Dr. Deleon, and the possible plans for placement of a defibrillator were being entertained according to the family members. She also has a history of coronary artery disease, for which she has underwent a coronary artery bypass grafting in 2007 and may have had some stents postoperatively and she has been diagnosed with orthostatic hypotension as well and she has been on midodrine according to the records from [facility]. Her ejection fraction has been 28% to 36%. She has early stages of dementia and spinal cord gliosis as well as fatigue and chronic kidney disease stage 3 according to the [facility] records. MEDICATIONS: Her medications are listed, however, apparently depending on her blood pressure, some of the medications may be withheld. ALLERGIES: She is not allergic to any medications. SOCIAL HISTORY: She does not smoke or drink alcoholic beverages and no drug use. She lives at home with her family members. REVIEW OF SYSTEMS: CARDIAC: She does not have any PND or orthopnea, although she has several pillows, sometimes she lays on her side without any pillows. There is no PND. There is no palpitation. There is no pain, pressure, or tightness in her chest. No shortness of breath except rarely when she exerts herself and at those times, the family members will give her some small dose of diuretics rarely. GASTROINTESTINAL: She denies. GENITOURINARY: She denies. PULMONARY: She denies. CONSTITUTIONAL: She denies. NEUROLOGICAL: She denies, although she has had some problems with balance. PHYSICAL EXAMINATION: GENERAL: Physical examination shows her to be elderly female, in no respiratory distress. NECK: Supple. No jugular venous distention. LUNGS: Clear to auscultation and percussion. CARDIAC: Regular rate and rhythm. No heaves, thrills, gallops, or rubs are noted. ABDOMEN: Soft and nontender. Positive bowel sounds. EXTREMITIES: There is no clubbing, cyanosis, nor is there any edema. NEUROLOGIC: She is awake, alert, responsive, and in no respiratory distress. LABORATORY VALUES AND DIAGNOSTIC DATA: White count of 6.3, hemoglobin 11.2, and platelet count of 316,000. Sodium 143, potassium 4.3, chloride 109, bicarbonate 24, BUN of 29, creatinine 1.5, and glucose of 115. Uric acid 7.3. Liver function tests are all normal. CK of 42 and TSH of 1.79. Total cholesterol is 163, LDL of 103 and HDL of 48. No cardiac enzymes are documented. INR 1.0 and a PTT of 22. IMAGING: Chest x-ray was performed that showed no acute findings. She also had a carotid duplex that showed anywhere between 40% to 50% stenoses of her carotid arteries. An electrocardiogram is not available for review. The rhythm strip is available from [place] that shows sinus rhythm. I am unable to locate any electrocardiograms in this chart. Her telemetry data shows sinus rhythm with some intraventricular conduction delay. ASSESSMENT AND PLAN: 1. Questionable syncope. 2. History of orthostatic hypotension. 3. History of ischemic cardiomyopathy, being considered for possible intracardiac defibrillator placement. 4. Coronary artery disease, status post coronary artery bypass grafting, and . 5. Diabetes mellitus. 6. Chronic kidney disease stage 3. 7. History of hypertension. Dr. Canales, this patient was seen in cardiac consultation. Medications have been reviewed. The patient is on Entresto as well as occasional doses of diuretics. The fact that she was not hypotensive at the time of being found by the paramedics indicates maybe she was not orthostatic. Those blood pressure readings at [facility] also go against an episode of orthostatic hypotension, although it does not exclude that. I would recommend checking the orthostatic vitals. Serial cardiac enzymes will be repeated here. She is known to have ischemic cardiomyopathy with low ejection fraction on prior occasions. Entresto may also be causing her low blood pressure at times as well and the family members have plans withholding of medications should that occur. If she does not have any more arrhythmias and if her blood pressure is stable, I would favor her being discharged to have a followup appointment with her game design instructor as outpatient to see about possible ICD implantation in the future. Maik Us M.D. DR: JOHNATHAN JOB#: [id number] CC:
[2017-06-16 08:52] LABS: ANION GAP 3 mmol/L (5-15); CALCIUM 8.9 MG/DL (8.5-10.1); CARBON DIOXIDE 23 MMOL/L (21-32); CHLORIDE 108 MMOL/L (98-107); CREATININE 1.4 MG/DL (0.55-1.30); POTASSIUM 4.1 MMOL/L (3.5-5.1); SODIUM 134 MMOL/L (136-145)
[2017-06-16] MEDS: Heparin 5000 units/ml inj SUBQ SCH ×2 (09:00→21:21)
[2017-06-16] MEDS: Aspirin Baby 81mg ORAL SCH (09:01)
--- NOTE | 2017-06-16 10:45 | Internal Med Progress Note ---
Subjective Date of Service: Jun 16, 2017 Physician Name Myron Rodriguez Attending Physician Kishan Beckman MD Current Medications Medications (Trade) Dose Ordered Sig/Yoana Route PRN Reason Start Time Stop Time Status Last Admin Dose Admin Acetaminophen (Tylenol) 650 mg Q4H PRN ORAL fever 06/14/17 21:15 07/14/17 21:14 Al Hydroxide/Mg Hydroxide (Mylanta II) 30 ml Q6H PRN ORAL dyspepsia 06/14/17 21:15 07/14/17 21:14 Albuterol/ Ipratropium (DuoNeb 0.5-3(2.5)mg/3ml) 3 ml Q4H PRN HHN Shortness of Breath 06/14/17 21:15 06/19/17 21:14 Aspirin (ASA) 81 mg DAILY ORAL 06/15/17 17:00 07/15/17 16:59 06/16/17 09:01 Clonidine HCl (Catapres) 0.1 mg Q4H PRN ORAL SBP > 160 06/14/17 21:15 07/14/17 21:14 Clopidogrel Bisulfate (Plavix) 75 mg DAILY ORAL 06/15/17 17:00 07/15/17 16:59 06/16/17 09:00 Dextrose (Dextrose 50%) STAT PRN IV Hypoglycemia 06/14/17 21:15 07/14/17 21:14 Furosemide (Lasix) 20 mg DAILY ORAL 06/15/17 17:00 07/15/17 16:59 Heparin Sodium (Porcine) (Heparin 5000 units/ml) 5,000 units EVERY 12 HOURS SUBQ 06/15/17 09:00 07/15/17 08:59 06/15/17 21:56 Insulin Aspart (NovoLOG) BEFORE MEALS AND HS SUBQ 06/14/17 23:00 07/14/17 22:59 Lorazepam (Ativan 2mg/ml 1ml) 0.5 mg Q4H PRN IV For Anxiety 06/14/17 21:15 06/21/17 21:14 Midodrine (Pro-Amatine) 5 mg THREE TIMES A DAY ORAL 06/16/17 11:00 07/16/17 10:59 Morphine Sulfate (Morphine Sulfate) 1 mg Q4H PRN IVP For Pain 7-10 06/14/17 21:15 06/21/17 21:14 Nateglinide (Starlix) 60 mg TIAC ORAL 06/15/17 17:00 07/15/17 16:59 06/16/17 06:46 Nitroglycerin (Ntg) 0.4 mg Q5M X 3 DOSES PRN SL Prn Chest Pain 06/14/17 21:15 07/14/17 21:14 Ondansetron HCl (Zofran) 4 mg Q6H PRN IVP Nausea & Vomiting 06/14/17 21:15 07/14/17 21:14 Polyethylene Glycol (Miralax) 17 gm HSPRN PRN ORAL Constipation 06/14/17 21:15 07/14/17 21:14 Temazepam (Restoril) 15 mg HSPRN PRN ORAL Insomnia 06/14/17 21:15 06/21/17 21:14 Allergies: Coded Allergies: No Known Allergies (Unverified , 06/14/17) ROS Limited/Unobtainable: No Constitutional: Reports: no symptoms HEENT: Reports: no symptoms Cardiovascular: Reports: no symptoms Respiratory: Reports: no symptoms Gastrointestinal/Abdominal: Reports: no symptoms Genitourinary: Reports: no symptoms Neurologic/Psychiatric: Reports: no symptoms Subjective 76 YO F admitted with syncope. Await echocardiogram. Cover for Int Med-Dr Beckman. Rapid response this am-became hypotensive. Objective Last Vital Signs Date Time Temp Pulse Resp B/P (MAP) Pulse Ox O2 Delivery O2 Flow Rate FiO2 06/16/17 08:10 94 06/16/17 08:00 97.5 18 120/62 97 Room Air General Appearance: WD/WN, no apparent distress, alert EENT: PERRL/EOMI, normal ENT inspection Neck: non-tender, normal alignment, supple Cardiovascular: normal peripheral pulses, normal rate, regular rhythm, no gallop/murmur, no JVD, other - hypotensive Respiratory/Chest: chest wall non-tender, lungs clear, normal breath sounds, no respiratory distress, no accessory muscle use Abdomen: normal bowel sounds, non tender, soft, no organomegaly, no mass Extremities: normal range of motion Neurologic: freight flagman II-XII grossly normal, no motor/sensory deficits Laboratory Tests Test 06/15/17 16:55 06/15/17 17:00 06/16/17 07:25 Troponin I 0.028 ng/mL (0.000-0.056) 0.023 ng/mL (0.000-0.056) Urine Color Yellow Urine Appearance Clear Urine pH 5 (4.5-8.0) Urine Specific [place] 1.015 (1.005-1.035) Urine Protein Negative (NEGATIVE) Urine Glucose (UA) Negative (NEGATIVE) Urine Ketones Negative (NEGATIVE) Urine Occult Blood 3+ (NEGATIVE) H Urine Nitrite Negative (NEGATIVE) Urine Bilirubin Negative (NEGATIVE) Urine Urobilinogen Normal MG/DL (0.0-1.0) Urine Leukocyte Esterase 1+ (NEGATIVE) H Urine RBC 5-10 /HPF (0 - 2) H Urine WBC 2-4 /HPF (0 - 2) Urine Squamous Epithelial Cells Few /LPF (NONE/OCC) Urine Amorphous Sediment Few /LPF (NONE) H Urine Bacteria Few /HPF (NONE) Urine Eosinophils None seen Urine Random Sodium 60 MEQ/L (20-110) Urine Potassium Timed 51 mmol/L (12-62) White Blood Count 5.8 K/UL (4.8-10.8) Red Blood Count 3.44 M/UL (4.20-5.40) L Hemoglobin 10.9 G/DL (12.0-16.0) L Hematocrit 32.2 % (37.0-47.0) L Mean Corpuscular Volume 93 FL (80-99) Mean Corpuscular Hemoglobin 31.6 PG (27.0-31.0) H Mean Corpuscular Hemoglobin Concent 33.8 G/DL (32.0-36.0) Red Cell Distribution Width 16.1 % (11.6-14.8) H Platelet Count 201 K/UL (150-450) Mean Platelet Volume 7.6 FL (6.5-10.1) Neutrophils (%) (Auto) 47.4 % (45.0-75.0) Lymphocytes (%) (Auto) 41.9 % (20.0-45.0) Monocytes (%) (Auto) 6.9 % (1.0-10.0) Eosinophils (%) (Auto) 2.7 % (0.0-3.0) Basophils (%) (Auto) 1.2 % (0.0-2.0) Sodium Level 134 MMOL/L (136-145) L Potassium Level 4.1 MMOL/L (3.5-5.1) Chloride Level 108 MMOL/L (98-107) H Carbon Dioxide Level 23 MMOL/L (21-32) Anion Gap 3 mmol/L (5-15) L Blood Urea Nitrogen 29 mg/dL (7-18) H Creatinine 1.4 MG/DL (0.55-1.30) H Estimat Glomerular Filtration Rate mL/min (>60) Glucose Level 109 MG/DL (74-106) H Calcium Level 8.9 MG/DL (8.5-10.1) Pro-B-Type Natriuretic Peptide 4059 pg/mL (0-125) H Assessment/Plan Problem List: (1) CHF (congestive heart failure) Assessment & Plan: Await echocardiogram. Patient will require AICD during this hosp visit-see EP cardiology note(Dr Childs). Patient daughter requests transfer to [facility] hosp Dr Hollins accepting. (2) Cerebral vascular disease (3) Syncope Assessment & Plan: ?CVA vs ACS? Neuro and cardiology workup in progress. (4) Diabetes mellitus Assessment & Plan: Continue starlix and novolog sliding scale. (5) CAD (coronary artery disease) Assessment & Plan: S/P CABG Status: deteriorating Assessment/Plan Transfer to [facility] per family request- Dr Hollins accepting. MYRON RODRIGUEZ Jun 16, 2017 10:45
[2017-06-16 11:30] VITALS: BP 128/55
--- NOTE | 2017-06-16 12:00 | Neurology Progress Note ---
Interim History Interim History ROS Limited/Unobtainable: Yes Complaints: weakness Events: witnessed episode of syncope SBP 50/0, urine incontinence, Objective Physical Exam Last Vital Signs Date Time Temp Pulse Resp B/P (MAP) Pulse Ox O2 Delivery O2 Flow Rate FiO2 06/16/17 11:40 102 06/16/17 11:30 98.1 18 128/55 98 Nasal Cannula 3.0 Laboratory Tests Test 06/15/17 16:55 06/15/17 17:00 06/16/17 07:25 Troponin I 0.028 ng/mL (0.000-0.056) 0.023 ng/mL (0.000-0.056) Urine Color Yellow Urine Appearance Clear Urine pH 5 (4.5-8.0) Urine Specific Shushan 1.015 (1.005-1.035) Urine Protein Negative (NEGATIVE) Urine Glucose (UA) Negative (NEGATIVE) Urine Ketones Negative (NEGATIVE) Urine Occult Blood 3+ (NEGATIVE) H Urine Nitrite Negative (NEGATIVE) Urine Bilirubin Negative (NEGATIVE) Urine Urobilinogen Normal MG/DL (0.0-1.0) Urine Leukocyte Esterase 1+ (NEGATIVE) H Urine RBC 5-10 /HPF (0 - 2) H Urine WBC 2-4 /HPF (0 - 2) Urine Squamous Epithelial Cells Few /LPF (NONE/OCC) Urine Amorphous Sediment Few /LPF (NONE) H Urine Bacteria Few /HPF (NONE) Urine Eosinophils None seen Urine Random Sodium 60 MEQ/L (20-110) Urine Potassium Timed 51 mmol/L (12-62) White Blood Count 5.8 K/UL (4.8-10.8) Red Blood Count 3.44 M/UL (4.20-5.40) L Hemoglobin 10.9 G/DL (12.0-16.0) L Hematocrit 32.2 % (37.0-47.0) L Mean Corpuscular Volume 93 FL (80-99) Mean Corpuscular Hemoglobin 31.6 PG (27.0-31.0) H Mean Corpuscular Hemoglobin Concent 33.8 G/DL (32.0-36.0) Red Cell Distribution Width 16.1 % (11.6-14.8) H Platelet Count 201 K/UL (150-450) Mean Platelet Volume 7.6 FL (6.5-10.1) Neutrophils (%) (Auto) 47.4 % (45.0-75.0) Lymphocytes (%) (Auto) 41.9 % (20.0-45.0) Monocytes (%) (Auto) 6.9 % (1.0-10.0) Eosinophils (%) (Auto) 2.7 % (0.0-3.0) Basophils (%) (Auto) 1.2 % (0.0-2.0) Sodium Level 134 MMOL/L (136-145) L Potassium Level 4.1 MMOL/L (3.5-5.1) Chloride Level 108 MMOL/L (98-107) H Carbon Dioxide Level 23 MMOL/L (21-32) Anion Gap 3 mmol/L (5-15) L Blood Urea Nitrogen 29 mg/dL (7-18) H Creatinine 1.4 MG/DL (0.55-1.30) H Estimat Glomerular Filtration Rate mL/min (>60) Glucose Level 109 MG/DL (74-106) H Calcium Level 8.9 MG/DL (8.5-10.1) Pro-B-Type Natriuretic Peptide 4059 pg/mL (0-125) H General: well developed, well nourished, no acute distress Head: normocophalic, atraumatic Neck: no rigidity Neurologic Exam Mental Status: awake, alert, other - poor recent memory slow responces Speech: no dysarthia Language: no aphasia Cranial Nerve II: no papilledema Cranial Nerves III, IV, : PERRLA, EOMI, pupils Cranial Nerve V: normal facial sensations Cranial Nerve VII: no facial asymmetry Cranial Nerve VIII: no nystagmus Cranial Nerve IX: gag response Cranial Nerve XI: trapezii function normal Cranial Nerve XII: no tongue atrophy/fasciculations Motor System: normal muscle tone, no involuntary movement, no muscle wasting Sensory: normal pinprick Coordination: normal finger to nose bilaterally Deep Tendon Reflexes: 1+ bicep (L), 1+ bicep (R), 1+ tricep (L), 1+ tricep (R) , 1+ brachioradialis (L), 1+ brachioradialis (R), 1+ knee (L), 1+ knee (R), 1+ ankle (L), 1+ ankle (R) Reflexes: mute plantar (L), mute plantar (R) Stance: other Gait: other Impression/Recommendations Problems: (1) recurrent syncope episodes, (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 (3) CAD (coronary artery disease) (4) Diabetes mellitus Status: unchanged, deteriorating Recommendations # [id number] ortostatic BP card w/u r/o arythmia hydrate EEG no sz activity JESSICA CHRISTOPHER Jun 16, 2017 12:00
[2017-06-16] MEDS ORDERED: NS 200 ML IVPB ONE (12:45)
--- NOTE | 2017-06-16 14:20 | Pulmonology Progress Note ---
Assessment/Plan Problems: (1) Cardiomyopathy (2) Syncope (3) Diabetes mellitus (4) CAD (coronary artery disease) (5) Dementia (6) Cerebral vascular disease Assessment/Plan EF 28% ICD was offered symptomatic treatment keep in teli Subjective ROS Limited/Unobtainable: No Constitutional: Reports: no symptoms HEENT: Repors: no symptoms Respiratory: Reports: no symptoms Allergies: Coded Allergies: No Known Allergies (Unverified , 06/14/17) Objective Last 24 Hour Vital Signs Date Time Temp Pulse Resp B/P (MAP) Pulse Ox O2 Delivery O2 Flow Rate FiO2 06/16/17 11:40 102 06/16/17 11:35 87 06/16/17 11:30 76 06/16/17 11:30 98.1 76 18 128/55 98 Nasal Cannula 3.0 06/16/17 08:10 94 06/16/17 08:05 81 06/16/17 08:00 71 81 94 06/16/17 08:00 97.5 71 18 120/62 97 Room Air 06/16/17 08:00 71 06/16/17 04:00 74 06/16/17 04:00 97.7 80 19 129/67 97 Room Air 06/16/17 00:18 97.7 73 18 131/72 97 Room Air 06/16/17 00:00 98 06/15/17 20:24 97.6 83 18 119/57 95 Room Air 06/15/17 20:00 98 06/15/17 19:50 83 18 Room Air 06/15/17 16:00 75 06/15/17 15:40 97.0 84 18 105/51 96 Room Air Objective one episode of syncope early this morning, witnessed by daughter. General Appearance: WD/WN HEENT: normocephalic, atraumatic Respiratory/Chest: lungs clear, no respiratory distress Cardiovascular: normal peripheral pulses, normal rate Abdomen: normal bowel sounds, soft, non tender Extremities: no clubbing Skin: no rash Laboratory Tests 06/15/17 16:55: Troponin I 0.028 06/15/17 17:00: Urine Color Yellow, Urine Appearance Clear, Urine pH 5, Urine Specific Willis 1.015, Urine Protein Negative, Urine Glucose (UA) Negative, Urine Ketones Negative, Urine Occult Blood 3+H, Urine Nitrite Negative, Urine Bilirubin Negative, Urine Urobilinogen Normal, Urine Leukocyte Esterase 1+H, Urine RBC 5- 10H, Urine WBC 2-4, Urine Squamous Epithelial Cells Few, Urine Amorphous Sediment FewH, Urine Bacteria Few, Urine Eosinophils None seen, Urine Random Sodium 60, Urine Potassium Timed 51 06/16/17 07:25: Troponin I 0.023, White Blood Count 5.8, Red Blood Count 3.44L, Hemoglobin 10.9L , Hematocrit 32.2L, Mean Corpuscular Volume 93, Mean Corpuscular Hemoglobin 31.6H, Mean Corpuscular Hemoglobin Concent 33.8, Red Cell Distribution Width 16.1H, Platelet Count 201, Mean Platelet Volume 7.6, Neutrophils (%) (Auto) 47.4 , Lymphocytes (%) (Auto) 41.9, Monocytes (%) (Auto) 6.9, Eosinophils (%) (Auto) 2.7, Basophils (%) (Auto) 1.2, Sodium Level 134L, Potassium Level 4.1, Chloride Level 108H, Carbon Dioxide Level 23, Anion Gap 3L, Blood Urea Nitrogen 29H, Creatinine 1.4H, Estimat Glomerular Filtration Rate , Glucose Level 109H, Calcium Level 8.9, Pro-B-Type Natriuretic Peptide 4059H Current Medications Medications (Trade) Dose Ordered Sig/Yoana Route PRN Reason Start Time Stop Time Status Last Admin Dose Admin Acetaminophen (Tylenol) 650 mg Q4H PRN ORAL fever 06/14/17 21:15 07/14/17 21:14 Al Hydroxide/Mg Hydroxide (Mylanta II) 30 ml Q6H PRN ORAL dyspepsia 06/14/17 21:15 07/14/17 21:14 Albuterol/ Ipratropium (DuoNeb 0.5-3(2.5)mg/3ml) 3 ml Q4H PRN HHN Shortness of Breath 06/14/17 21:15 06/19/17 21:14 Aspirin (ASA) 81 mg DAILY ORAL 06/15/17 17:00 07/15/17 16:59 06/16/17 09:01 Clonidine HCl (Catapres) 0.1 mg Q4H PRN ORAL SBP > 160 06/14/17 21:15 07/14/17 21:14 Clopidogrel Bisulfate (Plavix) 75 mg DAILY ORAL 06/15/17 17:00 07/15/17 16:59 06/16/17 09:00 Dextrose (Dextrose 50%) STAT PRN IV Hypoglycemia 06/14/17 21:15 07/14/17 21:14 Furosemide (Lasix) 20 mg DAILY ORAL 06/15/17 17:00 07/15/17 16:59 Heparin Sodium (Porcine) (Heparin 5000 units/ml) 5,000 units EVERY 12 HOURS SUBQ 06/15/17 09:00 07/15/17 08:59 06/15/17 21:56 Insulin Aspart (NovoLOG) BEFORE MEALS AND HS SUBQ 06/14/17 23:00 07/14/17 22:59 Lorazepam (Ativan 2mg/ml 1ml) 0.5 mg Q4H PRN IV For Anxiety 06/14/17 21:15 06/21/17 21:14 Midodrine (Pro-Amatine) 5 mg THREE TIMES A DAY ORAL 06/16/17 11:00 07/16/17 10:59 06/16/17 10:39 Morphine Sulfate (Morphine Sulfate) 1 mg Q4H PRN IVP For Pain 7-10 06/14/17 21:15 06/21/17 21:14 Nateglinide (Starlix) 60 mg TIAC ORAL 06/15/17 17:00 07/15/17 16:59 06/16/17 12:54 Nitroglycerin (Ntg) 0.4 mg Q5M X 3 DOSES PRN SL Prn Chest Pain 06/14/17 21:15 07/14/17 21:14 Ondansetron HCl (Zofran) 4 mg Q6H PRN IVP Nausea & Vomiting 06/14/17 21:15 07/14/17 21:14 Polyethylene Glycol (Miralax) 17 gm HSPRN PRN ORAL Constipation 06/14/17 21:15 07/14/17 21:14 Temazepam (Restoril) 15 mg HSPRN PRN ORAL Insomnia 06/14/17 21:15 06/21/17 21:14 JERI KHAN Jun 16, 2017 14:20
--- NOTE | 2017-06-16 15:11 | Cardiology Report ---
APPROVED REPORT EXAM: Two-dimensional and M-mode echocardiogram with Doppler and color Doppler. INDICATION Left ventricular function M-Mode DIMENSIONS IVSd1.3 (0.7-1.1cm)Left Atrium (MM)3.6 (1.6-4.0cm) LVDd4.1 (3.5-5.6cm)Aortic Root3.2 (2.0-3.7cm) PWd0.7 (0.7-1.1cm)Aortic Cusp Exc.1.5 (1.5-2.0cm) LVDs5.5 (2.5-4.0cm) PWs0.9 cm Technically difficult study due to poor acoustical windows. Mild left ventricular enlargement. Global left ventricular hypokinesis. Left ventricular ejection fraction estimated to be 30-35%. No evidence of left ventricular hypertrophy. No evidence of pericardial or pleural effusion. Right cardiac chamber sizes are within normal limits. Mild left atrial enlargement by 2D. Focal aortic valve sclerosis with adequate cusp excursion. Thickened mitral valve leaflets with normal excursion. Mild mitral annulus and aortic root calcification. Pulmonic valve not well visualized. Normal tricuspid valve structure. IVC is not obtainable. A color flow and spectral Doppler study was performed and revealed: No aortic regurgitation. Mild to moderate mitral regurgitation. Mitral diastolic velocities suggest reduced left ventricular relaxation c/w diastolic dysfunction grade 1. No tricuspid regurgitation.
--- NOTE | 2017-06-16 15:15 | Cardiac Electrophysiology PN ---
Assessment/Plan Assessment/Plan 1. Recurrent Syncopal episodes in a patient with severe ischemic cardiomyopathy with ejection fraction of 28% as well as the patient has coronary artery bypass graft. I agree with Dr. Gibson, who is an ultimate hoops referee who saw the patient at [facility] regarding her need for ICD implant. DW the patient's daughter re either transfer the patient to [facility] for defibrillator implantation or proceeding with defibrillator implantation at [facility]. Depending on the patient and patient's daughter decision, as well as Dr. Beckman, her primary care at [place], as well as Dr. Deleon, the patient's steam power plant operator as an outpatient, we will make the appropriate arrangement. 2. History of coronary artery disease with history of coronary artery bypass graft, on aspirin and Plavix. 3. 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 Per Dr Us. Off Betablockers or ACEI or aldactone for low BP. 4. Diabetes. 5. History of cerebrovascular accident. 6. Low BP on Midodrine.DC Lasix. Subjective Subjective No chest pain or SOB. On tele. BP dropped transiently that got better spontaneously. Daughter at bedside. Objective Last 24 Hour Vital Signs Date Time Temp Pulse Resp B/P (MAP) Pulse Ox O2 Delivery O2 Flow Rate FiO2 06/16/17 11:40 102 06/16/17 11:35 87 06/16/17 11:30 76 06/16/17 11:30 98.1 76 18 128/55 98 Nasal Cannula 3.0 06/16/17 08:10 94 06/16/17 08:05 81 06/16/17 08:00 71 81 94 06/16/17 08:00 97.5 71 18 120/62 97 Room Air 06/16/17 08:00 71 06/16/17 04:00 74 06/16/17 04:00 97.7 80 19 129/67 97 Room Air 06/16/17 00:18 97.7 73 18 131/72 97 Room Air 06/16/17 00:00 98 06/15/17 20:24 97.6 83 18 119/57 95 Room Air 06/15/17 20:00 98 06/15/17 19:50 83 18 Room Air 06/15/17 16:00 75 06/15/17 15:40 97.0 84 18 105/51 96 Room Air Laboratory Tests Test 06/15/17 16:55 06/15/17 17:00 06/16/17 07:25 Troponin I 0.028 ng/mL (0.000-0.056) 0.023 ng/mL (0.000-0.056) Urine Color Yellow Urine Appearance Clear Urine pH 5 (4.5-8.0) Urine Specific [place] 1.015 (1.005-1.035) Urine Protein Negative (NEGATIVE) Urine Glucose (UA) Negative (NEGATIVE) Urine Ketones Negative (NEGATIVE) Urine Occult Blood 3+ (NEGATIVE) H Urine Nitrite Negative (NEGATIVE) Urine Bilirubin Negative (NEGATIVE) Urine Urobilinogen Normal MG/DL (0.0-1.0) Urine Leukocyte Esterase 1+ (NEGATIVE) H Urine RBC 5-10 /HPF (0 - 2) H Urine WBC 2-4 /HPF (0 - 2) Urine Squamous Epithelial Cells Few /LPF (NONE/OCC) Urine Amorphous Sediment Few /LPF (NONE) H Urine Bacteria Few /HPF (NONE) Urine Eosinophils None seen Urine Random Sodium 60 MEQ/L (20-110) Urine Potassium Timed 51 mmol/L (12-62) White Blood Count 5.8 K/UL (4.8-10.8) Red Blood Count 3.44 M/UL (4.20-5.40) L Hemoglobin 10.9 G/DL (12.0-16.0) L Hematocrit 32.2 % (37.0-47.0) L Mean Corpuscular Volume 93 FL (80-99) Mean Corpuscular Hemoglobin 31.6 PG (27.0-31.0) H Mean Corpuscular Hemoglobin Concent 33.8 G/DL (32.0-36.0) Red Cell Distribution Width 16.1 % (11.6-14.8) H Platelet Count 201 K/UL (150-450) Mean Platelet Volume 7.6 FL (6.5-10.1) Neutrophils (%) (Auto) 47.4 % (45.0-75.0) Lymphocytes (%) (Auto) 41.9 % (20.0-45.0) Monocytes (%) (Auto) 6.9 % (1.0-10.0) Eosinophils (%) (Auto) 2.7 % (0.0-3.0) Basophils (%) (Auto) 1.2 % (0.0-2.0) Sodium Level 134 MMOL/L (136-145) L Potassium Level 4.1 MMOL/L (3.5-5.1) Chloride Level 108 MMOL/L (98-107) H Carbon Dioxide Level 23 MMOL/L (21-32) Anion Gap 3 mmol/L (5-15) L Blood Urea Nitrogen 29 mg/dL (7-18) H Creatinine 1.4 MG/DL (0.55-1.30) H Estimat Glomerular Filtration Rate mL/min (>60) Glucose Level 109 MG/DL (74-106) H Calcium Level 8.9 MG/DL (8.5-10.1) Pro-B-Type Natriuretic Peptide 4059 pg/mL (0-125) H Objective HEAD AND NECK: Shows no JVD. LUNGS: Clear. CARDIOVASCULAR: Shows regular S1 and S2 with no gallop. Sternotomy is intact. ABDOMEN: Soft. EXTREMITIES: No pitting edema. ULISES ALVAREZ Jun 16, 2017 15:15
[2017-06-16 16:11] VITALS: BP 125/64
--- NOTE | 2017-06-16 23:30 | Diagnostic Imaging Report ---
APPROVED REPORT CPT Code: 89182 Vascular Symptoms Syncope Doppler Spectral Velocity Analysis RightLeft RIGHT SIDE: CCA - Imaging reveals no significant plaque in the common carotid artery. ICA arteries. The Doppler signal indicates the degree of stenosis is moderate (50%) in the internal carotid, and mild (40-50%) in the external carotid arteries. VERTEBRAL - The vertebral artery is patent, without evidence of stenosis or steal. ECA - Imaging reveals irregular plaque in the internal and the external carotid arteries. The Doppler signal indicates the degree of stenosis is moderate (50%) in the internal carotid, and mild (40-50%) in the external carotid arteries. VERTEBRAL - The vertebral artery is patent, without evidence of stenosis or steal.
[2017-06-17] VITALS (7 sets, daily range): BP systolic 106–147; BP diastolic 47–79
[2017-06-17] MEDS: Nateglinide 60mg tab ORAL SCH ×3 (06:30→16:30)
[2017-06-17] MEDS: NovoLOG Insulin Flexpen SUBQ SCH ×4 (06:30→20:53)
--- NOTE | 2017-06-17 07:00 | Consultation ---
DATE OF CONSULTATION: 06/16/2017 ENDOCRINOLOGY CONSULTATION CONSULTING PHYSICIAN: Alverto Perry M.D. REFERRING PHYSICIAN: Kishan Beckman M.D. REASON FOR CONSULTATION: Diabetes management. HISTORY OF PRESENT ILLNESS: The patient is a very pleasant 76-year-old female, who is very well known to me since I have been following her as an outpatient for the management of diabetes. It has been a while I have not seen her previously. Her diabetes has been managed with Janumet, after which she lost weight and developed chronic kidney disease, I switched her medication to Starlix and currently she takes Starlix half of 60 mg tablet, which is 30 mg before breakfast and dinner. It has been a while I have not seen her in the office. The patient was admitted to the hospital with worsening of shortness of breath. She is cardiomyopathic with the EF under 20% and she is a candidate for ICD placement. PAST MEDICAL HISTORY: 1. CVA in October of 2016. 2. Type 2 diabetes. 3. Coronary artery disease. 4. Cardiomyopathy, ischemic. PAST SURGICAL HISTORY: CABG at [facility]. MEDICATIONS: Medications at home, reviewed and reconciled. Starlix as per HPI. ALLERGIES TO MEDICATIONS: None. SOCIAL HISTORY: The patient is single. She has six children, very supportive. No history of smoking, alcohol, or drug use. REVIEW OF SYSTEMS: A 12-point review of systems was performed, pertinent positives and negatives are as mentioned in the history of present illness. PHYSICAL EXAMINATION: GENERAL: The patient is awake and alert. VITAL SIGNS: Blood pressure is 140/80, pulse 80, temperature 98.2, and respiratory rate 18. HEENT: Pupils are equal and reactive to light and accommodation. Sclerae are anicteric. NECK: No JVD. No thyromegaly. No bruits. LUNGS: Clear. HEART: Regular rate and rhythm. ABDOMEN: Positive bowel sounds. Soft. EXTREMITIES: No clubbing, cyanosis, or edema. LABORATORY VALUES: WBC is 5.8, hemoglobin 10.9, hematocrit 32.2, and platelets 201,000. Sodium is 134, potassium 4.1, chloride 108, bicarbonate 23, BUN 29, creatinine 1.2, and glucose of 109. Uric acid is 7.3. BNP is 4059. TSH is 1.7. DIAGNOSES: 1. Ischemic cardiomyopathy. 2. Chronic kidney disease. 3. Diabetes. 4. History of cerebrovascular accident. PLAN: 1. Continue Starlix as is. 2. Continue sliding scale Humalog before meals and at bedtime. 3. Further adjustment according to her blood glucose values. 4. Diabetes care discussed with both daughters at the bedside. Thank you, Dr. Beckman, for the courtesy of this consultation. Alverto Perry M.D. DR: TAHIR/lilly JOB#: [id number] CC:
[2017-06-17 08:09] LABS: EOSINOPHILS % (AUTO) 2.4 % (0.0-3.0); LYMPHOCYTES % (AUTO) 38.9 % (20.0-45.0); MEAN CORPUSCULAR HGB CONC 32.9 G/DL (32.0-36.0); MEAN CORPUSCULAR VOLUME 94 FL (80-99); MEAN PLATELET VOLUME 7.6 FL (6.5-10.1); MONOCYTES % (AUTO) 7.2 % (1.0-10.0); NEUTROPHILS % (AUTO) 50.6 % (45.0-75.0); PLATELET COUNT 210 K/UL (150-450); RED BLOOD COUNT 3.35 M/UL (4.20-5.40); RED CELL DISTRIBUTION WIDTH 16.3 % (11.6-14.8); WHITE BLOOD COUNT 5.6 K/UL (4.8-10.8)
[2017-06-17 08:54] LABS: ANION GAP 12 mmol/L (5-15); CALCIUM 8.8 MG/DL (8.5-10.1); CARBON DIOXIDE 22 MMOL/L (21-32); CHLORIDE 108 MMOL/L (98-107); CREATININE 1.3 MG/DL (0.55-1.30); POTASSIUM 4.2 MMOL/L (3.5-5.1); SODIUM 142 MMOL/L (136-145)
--- NOTE | 2017-06-17 09:06 | Diagnostic Imaging Report ---
Indication: Syncope Technique: The head was imaged in a 1.5 Andreia magnet. Sequences obtained include sagittal and axial T1 FLAIR, axial T2 fast spin echo with fat saturation, axial T2 FLAIR, diffusion and ADC map. Comparison: None Findings: There is a cavum septum pellucidum. There is mild to moderate prominence of the sulci, ventricles, and basal cisterns consistent with atrophy. Ventricles may be disproportionately larger. Consider normal pressure hydrocephalus. Mild, nonspecific T2 hyperintensity noted within white matter. This may be due to chronic small vessel disease. There is no restricted diffusion. Anderson-white differentiation is normal. There is no mass effect, midline shift, edema, or hemorrhage. There are no abnormal extra-axial or intra-axial fluid collections. The corpus callosum and sella are unremarkable. The brainstem and cerebellum are unremarkable. Bone marrow signal within the visualized osseous structures appears age appropriate and unremarkable otherwise. Impression: Disproportionate ventriculomegaly. Consider normal pressure hydrocephalus. Mild atrophy and evidence of chronic small vessel disease involving white matter tracts.
[2017-06-17] MEDS: Aspirin Baby 81mg ORAL SCH (09:51)
[2017-06-17] MEDS: Heparin 5000 units/ml inj SUBQ SCH ×2 (09:51→20:53)
--- NOTE | 2017-06-17 10:24 | Cardiac Electrophysiology PN ---
Assessment/Plan Assessment/Plan 1. Recurrent Syncopal episodes in a patient with severe ischemic cardiomyopathy with ejection fraction of 28% at [facility] as well as hx of CABG. I agree with Dr. Gibson, the training development director who saw the patient at [facility] regarding her need for ICD implant. DW the patient's daughter re either transfer the patient to [facility] for defibrillator implantation or proceeding with defibrillator implantation at [facility]. DW Dr. Deleon, the patient's roller inspector. They all want to get the ICD done before hospital discharge. Scheduled for ICD implant tomorrow at 2 pm. Repeat echo here also EF 30-35% 2. History of coronary artery disease with history of coronary artery bypass graft, on aspirin and Plavix. 3. 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 Per Dr Us. Off Betablockers or ACEI or aldactone for low BP. 4. Diabetes. 5. History of cerebrovascular accident. 6. Low BP on Midodrine. DW Dr Deleon and Fabienne Subjective Subjective No chest pain or SOB. On tele. Daughter at bedside. Objective Last 24 Hour Vital Signs Date Time Temp Pulse Resp B/P (MAP) Pulse Ox O2 Delivery O2 Flow Rate FiO2 06/17/17 08:50 68 61 64 06/17/17 08:08 97.9 68 19 120/62 98 Room Air 06/17/17 04:00 73 06/17/17 04:00 98.2 73 20 106/47 95 Room Air 06/17/17 00:55 98.0 74 20 145/79 97 Room Air 06/17/17 00:41 98.0 84 20 136/72 98 Nasal Cannula 2.0 06/17/17 00:00 72 06/16/17 20:21 92 18 Room Air 06/16/17 20:00 78 06/16/17 16:11 98.2 78 18 125/64 99 Nasal Cannula 3.0 06/16/17 16:00 80 06/16/17 12:00 103 06/16/17 11:40 102 06/16/17 11:35 87 06/16/17 11:30 76 06/16/17 11:30 98.1 76 18 128/55 98 Nasal Cannula 3.0 Laboratory Tests Test 06/17/17 07:00 White Blood Count 5.6 K/UL (4.8-10.8) Red Blood Count 3.35 M/UL (4.20-5.40) L Hemoglobin 10.4 G/DL (12.0-16.0) L Hematocrit 31.7 % (37.0-47.0) L Mean Corpuscular Volume 94 FL (80-99) Mean Corpuscular Hemoglobin 31.0 PG (27.0-31.0) Mean Corpuscular Hemoglobin Concent 32.9 G/DL (32.0-36.0) Red Cell Distribution Width 16.3 % (11.6-14.8) H Platelet Count 210 K/UL (150-450) Mean Platelet Volume 7.6 FL (6.5-10.1) Neutrophils (%) (Auto) 50.6 % (45.0-75.0) Lymphocytes (%) (Auto) 38.9 % (20.0-45.0) Monocytes (%) (Auto) 7.2 % (1.0-10.0) Eosinophils (%) (Auto) 2.4 % (0.0-3.0) Basophils (%) (Auto) 1.0 % (0.0-2.0) Sodium Level 142 MMOL/L (136-145) Potassium Level 4.2 MMOL/L (3.5-5.1) Chloride Level 108 MMOL/L (98-107) H Carbon Dioxide Level 22 MMOL/L (21-32) Anion Gap 12 mmol/L (5-15) Blood Urea Nitrogen 24 mg/dL (7-18) H Creatinine 1.3 MG/DL (0.55-1.30) Estimat Glomerular Filtration Rate mL/min (>60) Glucose Level 98 MG/DL (74-106) Calcium Level 8.8 MG/DL (8.5-10.1) Troponin I 0.024 ng/mL (0.000-0.056) Pro-B-Type Natriuretic Peptide 4581 pg/mL (0-125) H Objective HEAD AND NECK: Shows no JVD. LUNGS: Clear. CARDIOVASCULAR: Shows regular S1 and S2 with no gallop. Sternotomy is intact. ABDOMEN: Soft. EXTREMITIES: No pitting edema. ULISES ALVAREZ Jun 17, 2017 10:24
--- NOTE | 2017-06-17 15:07 | Anethesia Preoperative Eval ---
Anesthesia Pre-op PMH/ROS General Date of Evaluation: Jun 17, 2017 Time of Evaluation: 16:54 Anesthesiologist: Mari ASA Score: ASA 3 Mallampati Score Class I : Soft palate, uvula, fauces, pillars visible Class II: Soft palate, uvula, fauces visible Class III: Soft palate, base of uvula visible Class IV: Only hard plate visible Mallampati Classification: Class II Surgeon: Naz Diagnosis: Syncopy Surgical Procedure: ICD Placement Anesthesia History: none Family History: no anesthesia problems Allergies: Coded Allergies: No Known Allergies (Unverified , 06/14/17) Medications: see eMAR Past Medical History Cardiovascular: Reports: HTN, CAD - Ischemic Cardiomyopathy Neurologic/Psychiatric: Reports: dementia - Alzheimers, CVA Endocrine: Reports: DM Hematology/Immune: Reports: anemia PSxH Narrative: CABG Anesthesia Pre-op Phys. Exam Physician Exam Last Vital Signs Date Time Temp Pulse Resp B/P (MAP) Pulse Ox O2 Delivery O2 Flow Rate FiO2 06/17/17 11:18 97.9 61 20 123/59 98 Room Air 06/17/17 00:41 2.0 Constitutional: NAD Neurologic: CN 2-12 intact Cardiovascular: RRR Respiratory: CTA Gastrointestinal: S/NT/ND Airway Exam Mallampati Score: Class II MO: limited ROM: limited Teeth: missing, intact Anesthesia Pre-op A/P Labs Hematology Test 06/17/17 07:00 White Blood Count 5.6 K/UL (4.8-10.8) Red Blood Count 3.35 M/UL (4.20-5.40) L Hemoglobin 10.4 G/DL (12.0-16.0) L Hematocrit 31.7 % (37.0-47.0) L Mean Corpuscular Volume 94 FL (80-99) Mean Corpuscular Hemoglobin 31.0 PG (27.0-31.0) Mean Corpuscular Hemoglobin Concent 32.9 G/DL (32.0-36.0) Red Cell Distribution Width 16.3 % (11.6-14.8) H Platelet Count 210 K/UL (150-450) Mean Platelet Volume 7.6 FL (6.5-10.1) Neutrophils (%) (Auto) 50.6 % (45.0-75.0) Lymphocytes (%) (Auto) 38.9 % (20.0-45.0) Monocytes (%) (Auto) 7.2 % (1.0-10.0) Eosinophils (%) (Auto) 2.4 % (0.0-3.0) Basophils (%) (Auto) 1.0 % (0.0-2.0) Chemistry Test 06/17/17 07:00 Sodium Level 142 MMOL/L (136-145) Potassium Level 4.2 MMOL/L (3.5-5.1) Chloride Level 108 MMOL/L (98-107) H Carbon Dioxide Level 22 MMOL/L (21-32) Anion Gap 12 mmol/L (5-15) Blood Urea Nitrogen 24 mg/dL (7-18) H Creatinine 1.3 MG/DL (0.55-1.30) Estimat Glomerular Filtration Rate mL/min (>60) Glucose Level 98 MG/DL (74-106) Calcium Level 8.8 MG/DL (8.5-10.1) Troponin I 0.024 ng/mL (0.000-0.056) Pro-B-Type Natriuretic Peptide 4581 pg/mL (0-125) H Risk Assessment & Plan Assessment: ASA 3 Plan: GA Status Change Before Surgery: No Pre-Antibiotics Drug: Geoff Farley MD Jun 17, 2017 15:07
--- NOTE | 2017-06-17 15:23 | Pulmonology Progress Note ---
Assessment/Plan Problems: (1) Cardiomyopathy (2) Syncope (3) Diabetes mellitus (4) CAD (coronary artery disease) (5) Dementia (6) Cerebral vascular disease Assessment/Plan EF 28% ICD scheduled for am symptomatic treatment keep in teli Subjective ROS Limited/Unobtainable: No Constitutional: Reports: no symptoms HEENT: Repors: no symptoms Respiratory: Reports: no symptoms Cardiovascular: Reports: no symptoms Allergies: Coded Allergies: No Known Allergies (Unverified , 06/14/17) Objective Last 24 Hour Vital Signs Date Time Temp Pulse Resp B/P (MAP) Pulse Ox O2 Delivery O2 Flow Rate FiO2 06/17/17 11:18 97.9 61 20 123/59 98 Room Air 06/17/17 10:03 71 16 Room Air 06/17/17 08:50 68 61 64 06/17/17 08:08 97.9 68 19 120/62 98 Room Air 06/17/17 04:00 73 06/17/17 04:00 98.2 73 20 106/47 95 Room Air 06/17/17 00:55 98.0 74 20 145/79 97 Room Air 06/17/17 00:41 98.0 84 20 136/72 98 Nasal Cannula 2.0 06/17/17 00:00 72 06/16/17 20:21 92 18 Room Air 06/16/17 20:00 78 06/16/17 16:11 98.2 78 18 125/64 99 Nasal Cannula 3.0 06/16/17 16:00 80 Objective family agreed with ICD, scheduled for am HEENT: normocephalic, atraumatic Respiratory/Chest: chest wall non-tender, lungs clear Breasts: no masses Cardiovascular: normal peripheral pulses Abdomen: normal bowel sounds, soft, non tender Genitourinary: normal external genitalia Extremities: no clubbing Skin: no rash Laboratory Tests 06/17/17 07:00: White Blood Count 5.6, Red Blood Count 3.35L, Hemoglobin 10.4L, Hematocrit 31.7L , Mean Corpuscular Volume 94, Mean Corpuscular Hemoglobin 31.0, Mean Corpuscular Hemoglobin Concent 32.9, Red Cell Distribution Width 16.3H, Platelet Count 210, Mean Platelet Volume 7.6, Neutrophils (%) (Auto) 50.6, Lymphocytes (%) (Auto) 38.9, Monocytes (%) (Auto) 7.2, Eosinophils (%) (Auto) 2.4, Basophils (%) (Auto) 1.0, Sodium Level 142, Potassium Level 4.2, Chloride Level 108H, Carbon Dioxide Level 22, Anion Gap 12, Blood Urea Nitrogen 24H, Creatinine 1.3, Estimat Glomerular Filtration Rate , Glucose Level 98, Calcium Level 8.8, Troponin I 0.024, Pro-B-Type Natriuretic Peptide 4581H Current Medications Medications (Trade) Dose Ordered Sig/Yoana Route PRN Reason Start Time Stop Time Status Last Admin Dose Admin Acetaminophen (Tylenol) 650 mg Q4H PRN ORAL fever 06/14/17 21:15 07/14/17 21:14 Al Hydroxide/Mg Hydroxide (Mylanta II) 30 ml Q6H PRN ORAL dyspepsia 06/14/17 21:15 07/14/17 21:14 Albuterol/ Ipratropium (DuoNeb 0.5-3(2.5)mg/3ml) 3 ml Q4H PRN HHN Shortness of Breath 06/14/17 21:15 06/19/17 21:14 Aspirin (ASA) 81 mg DAILY ORAL 06/15/17 17:00 07/15/17 16:59 06/17/17 09:51 Clonidine HCl (Catapres) 0.1 mg Q4H PRN ORAL SBP > 160 06/14/17 21:15 07/14/17 21:14 Clopidogrel Bisulfate (Plavix) 75 mg DAILY ORAL 06/15/17 17:00 07/15/17 16:59 06/17/17 09:48 Dextrose (Dextrose 50%) STAT PRN IV Hypoglycemia 06/14/17 21:15 07/14/17 21:14 Heparin Sodium (Porcine) (Heparin 5000 units/ml) 5,000 units EVERY 12 HOURS SUBQ 06/15/17 09:00 07/15/17 08:59 06/17/17 09:51 Insulin Aspart (NovoLOG) BEFORE MEALS AND HS SUBQ 06/14/17 23:00 07/14/17 22:59 Lorazepam (Ativan 2mg/ml 1ml) 0.5 mg Q4H PRN IV For Anxiety 06/14/17 21:15 06/21/17 21:14 Midodrine (Pro-Amatine) 5 mg THREE TIMES A DAY ORAL 06/16/17 11:00 07/16/17 10:59 06/17/17 14:27 Morphine Sulfate (Morphine Sulfate) 1 mg Q4H PRN IVP For Pain 7-10 06/14/17 21:15 06/21/17 21:14 Nateglinide (Starlix) 60 mg TIAC ORAL 06/15/17 17:00 07/15/17 16:59 06/17/17 11:56 Nitroglycerin (Ntg) 0.4 mg Q5M X 3 DOSES PRN SL Prn Chest Pain 06/14/17 21:15 07/14/17 21:14 Ondansetron HCl (Zofran) 4 mg Q6H PRN IVP Nausea & Vomiting 06/14/17 21:15 07/14/17 21:14 Polyethylene Glycol (Miralax) 17 gm HSPRN PRN ORAL Constipation 06/14/17 21:15 07/14/17 21:14 Temazepam (Restoril) 15 mg HSPRN PRN ORAL Insomnia 06/14/17 21:15 06/21/17 21:14 JERI KHAN Jun 17, 2017 15:23
[2017-06-17] MEDS ORDERED: Morphine Sulfate 4mg/ml Inj IVP PRN (16:00)
--- NOTE | 2017-06-17 17:47 | Internal Med Progress Note ---
Subjective Date of Service: Jun 17, 2017 Physician Name Myron Rodriguez Attending Physician Kishan Beckman MD Current Medications Medications (Trade) Dose Ordered Sig/Yoana Route PRN Reason Start Time Stop Time Status Last Admin Dose Admin Acetaminophen (Tylenol) 650 mg Q4H PRN ORAL fever 06/14/17 21:15 07/14/17 21:14 Al Hydroxide/Mg Hydroxide (Mylanta II) 30 ml Q6H PRN ORAL dyspepsia 06/14/17 21:15 07/14/17 21:14 Albuterol/ Ipratropium (DuoNeb 0.5-3(2.5)mg/3ml) 3 ml Q4H PRN HHN Shortness of Breath 06/14/17 21:15 06/19/17 21:14 Aspirin (ASA) 81 mg DAILY ORAL 06/15/17 17:00 07/15/17 16:59 06/17/17 09:51 Clonidine HCl (Catapres) 0.1 mg Q4H PRN ORAL SBP > 160 06/14/17 21:15 07/14/17 21:14 Clopidogrel Bisulfate (Plavix) 75 mg DAILY ORAL 06/15/17 17:00 07/15/17 16:59 06/17/17 09:48 Dextrose (Dextrose 50%) STAT PRN IV Hypoglycemia 06/14/17 21:15 07/14/17 21:14 Heparin Sodium (Porcine) (Heparin 5000 units/ml) 5,000 units EVERY 12 HOURS SUBQ 06/15/17 09:00 07/15/17 08:59 06/17/17 09:51 Insulin Aspart (NovoLOG) BEFORE MEALS AND HS SUBQ 06/14/17 23:00 07/14/17 22:59 Lorazepam (Ativan 2mg/ml 1ml) 0.5 mg Q4H PRN IV For Anxiety 06/14/17 21:15 06/21/17 21:14 Midodrine (Pro-Amatine) 5 mg THREE TIMES A DAY ORAL 06/16/17 11:00 07/16/17 10:59 06/17/17 14:27 Morphine Sulfate (Morphine Sulfate) 1 mg Q4H PRN IVP For Pain 7-10 06/17/17 16:00 06/24/17 15:59 Nateglinide (Starlix) 60 mg TIAC ORAL 06/15/17 17:00 07/15/17 16:59 06/17/17 11:56 Nitroglycerin (Ntg) 0.4 mg Q5M X 3 DOSES PRN SL Prn Chest Pain 06/14/17 21:15 07/14/17 21:14 Ondansetron HCl (Zofran) 4 mg Q6H PRN IVP Nausea & Vomiting 06/14/17 21:15 07/14/17 21:14 Polyethylene Glycol (Miralax) 17 gm HSPRN PRN ORAL Constipation 06/14/17 21:15 07/14/17 21:14 Temazepam (Restoril) 15 mg HSPRN PRN ORAL Insomnia 06/14/17 21:15 06/21/17 21:14 Allergies: Coded Allergies: No Known Allergies (Unverified , 06/14/17) ROS Limited/Unobtainable: No Constitutional: Reports: no symptoms HEENT: Reports: no symptoms Cardiovascular: Reports: no symptoms Respiratory: Reports: no symptoms Gastrointestinal/Abdominal: Reports: no symptoms Genitourinary: Reports: no symptoms Neurologic/Psychiatric: Reports: no symptoms Subjective 76 YO F admitted with syncope. Cover for Int Med-Dr Beckman.. Await AICD Wednesday06/18/17 Objective Last Vital Signs Date Time Temp Pulse Resp B/P (MAP) Pulse Ox O2 Delivery O2 Flow Rate FiO2 06/17/17 15:53 97.5 87 19 114/59 95 Room Air 06/17/17 00:41 2.0 Laboratory Tests Test 06/17/17 07:00 White Blood Count 5.6 K/UL (4.8-10.8) Red Blood Count 3.35 M/UL (4.20-5.40) L Hemoglobin 10.4 G/DL (12.0-16.0) L Hematocrit 31.7 % (37.0-47.0) L Mean Corpuscular Volume 94 FL (80-99) Mean Corpuscular Hemoglobin 31.0 PG (27.0-31.0) Mean Corpuscular Hemoglobin Concent 32.9 G/DL (32.0-36.0) Red Cell Distribution Width 16.3 % (11.6-14.8) H Platelet Count 210 K/UL (150-450) Mean Platelet Volume 7.6 FL (6.5-10.1) Neutrophils (%) (Auto) 50.6 % (45.0-75.0) Lymphocytes (%) (Auto) 38.9 % (20.0-45.0) Monocytes (%) (Auto) 7.2 % (1.0-10.0) Eosinophils (%) (Auto) 2.4 % (0.0-3.0) Basophils (%) (Auto) 1.0 % (0.0-2.0) Sodium Level 142 MMOL/L (136-145) Potassium Level 4.2 MMOL/L (3.5-5.1) Chloride Level 108 MMOL/L (98-107) H Carbon Dioxide Level 22 MMOL/L (21-32) Anion Gap 12 mmol/L (5-15) Blood Urea Nitrogen 24 mg/dL (7-18) H Creatinine 1.3 MG/DL (0.55-1.30) Estimat Glomerular Filtration Rate mL/min (>60) Glucose Level 98 MG/DL (74-106) Calcium Level 8.8 MG/DL (8.5-10.1) Troponin I 0.024 ng/mL (0.000-0.056) Pro-B-Type Natriuretic Peptide 4581 pg/mL (0-125) H Intake and Output 06/17/17 06/18/17 19:00 07:00 Intake Total 480 ml Balance 480 ml Intake Oral 480 ml # Voids 2 Objective General Appearance: WD/WN, no apparent distress, alert EENT: PERRL/EOMI, normal ENT inspection Neck: non-tender, normal alignment, supple Cardiovascular: normal peripheral pulses, normal rate, regular rhythm, no gallop/murmur, no JVD, other - hypotensive Respiratory/Chest: chest wall non-tender, lungs clear, normal breath sounds, no respiratory distress, no accessory muscle use Abdomen: normal bowel sounds, non tender, soft, no organomegaly, no mass Extremities: normal range of motion 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 Await AICD placement Wed06/18/17--see EP cardiology note(Dr Childs). (2) Cerebral vascular disease (3) Syncope Assessment & Plan: MRI brain=no acute dis. See neruo and cardiol note. (4) Diabetes mellitus Assessment & Plan: Continue starlix and novolog sliding scale. (5) CAD (coronary artery disease) Assessment & Plan: S/P CABG Status: not improved MYRON RODRIGUEZ Jun 17, 2017 17:47
--- NOTE | 2017-06-17 19:01 | Cardiology Progress Note ---
Assessment/Plan Assessment/Plan 1. Vasodepressor syncope again on 03/16/2017 jeanie sitting up in the chair 2. History of orthostatic hypotension. 3. History of ischemic cardiomyopathy, being considered for possible intracardiac defibrillator placement. 4. Coronary artery disease, status post coronary artery bypass graftin. 5. Diabetes mellitus. 6. Chronic kidney disease stage 3. 7. History of hypertension 8. orthostatic hypotension shortly after my visit with pt yest had a syncope episode while sittign up bp documented to be in lea 50-60's hr was stable inteh 80-90s at thei time as i discussed with staff , eventually got back in bed and bp sif elevated tele reviewed neg orthostatic ordered yest post midodrine wre better agree with the need for icd implantation d/w dr livingston offered to implant this admission family now agreeable to brad clemons and is planned for tomorrow labs nted all torp neg chem are fine off all diuretic and entresto hold ecotrin and plavix ? Subjective Cardiovascular: Denies: chest pain, lightheadedness, palpitations Respiratory: Denies: shortness of breath Gastrointestinal/Abdominal: Denies: abdominal pain Genitourinary: Denies: burning Objective Last 24 Hour Vital Signs Date Time Temp Pulse Resp B/P (MAP) Pulse Ox O2 Delivery O2 Flow Rate FiO2 06/17/17 15:53 97.5 87 19 114/59 95 Room Air 06/17/17 11:18 97.9 61 20 123/59 98 Room Air 06/17/17 10:03 71 16 Room Air 06/17/17 08:50 68 61 64 06/17/17 08:08 97.9 68 19 120/62 98 Room Air 06/17/17 04:00 73 06/17/17 04:00 98.2 73 20 106/47 95 Room Air 06/17/17 00:55 98.0 74 20 145/79 97 Room Air 06/17/17 00:41 98.0 84 20 136/72 98 Nasal Cannula 2.0 06/17/17 00:00 72 06/16/17 20:21 92 18 Room Air 06/16/17 20:00 78 General Appearance: no apparent distress, alert Neck: supple Cardiovascular: normal rate, regular rhythm Respiratory/Chest: lungs clear, normal breath sounds Abdomen: normal bowel sounds, non tender, soft Extremities: no swelling Intake and Output 06/17/17 06/18/17 19:00 07:00 Intake Total 480 ml Balance 480 ml Intake Oral 480 ml # Voids 2 Laboratory Tests Test 06/17/17 07:00 White Blood Count 5.6 K/UL (4.8-10.8) Red Blood Count 3.35 M/UL (4.20-5.40) L Hemoglobin 10.4 G/DL (12.0-16.0) L Hematocrit 31.7 % (37.0-47.0) L Mean Corpuscular Volume 94 FL (80-99) Mean Corpuscular Hemoglobin 31.0 PG (27.0-31.0) Mean Corpuscular Hemoglobin Concent 32.9 G/DL (32.0-36.0) Red Cell Distribution Width 16.3 % (11.6-14.8) H Platelet Count 210 K/UL (150-450) Mean Platelet Volume 7.6 FL (6.5-10.1) Neutrophils (%) (Auto) 50.6 % (45.0-75.0) Lymphocytes (%) (Auto) 38.9 % (20.0-45.0) Monocytes (%) (Auto) 7.2 % (1.0-10.0) Eosinophils (%) (Auto) 2.4 % (0.0-3.0) Basophils (%) (Auto) 1.0 % (0.0-2.0) Sodium Level 142 MMOL/L (136-145) Potassium Level 4.2 MMOL/L (3.5-5.1) Chloride Level 108 MMOL/L (98-107) H Carbon Dioxide Level 22 MMOL/L (21-32) Anion Gap 12 mmol/L (5-15) Blood Urea Nitrogen 24 mg/dL (7-18) H Creatinine 1.3 MG/DL (0.55-1.30) Estimat Glomerular Filtration Rate mL/min (>60) Glucose Level 98 MG/DL (74-106) Calcium Level 8.8 MG/DL (8.5-10.1) Troponin I 0.024 ng/mL (0.000-0.056) Pro-B-Type Natriuretic Peptide 4581 pg/mL (0-125) H HIRO GABRIEL Jun 17, 2017 19:01
--- NOTE | 2017-06-17 19:15 | Electroencephalogram ---
DATE OF PROCEDURE: 06/15/2017 ELECTROENCEPHALOGRAPHY REPORT REQUESTING PHYSICIAN: Kishan Beckman M.D. HISTORY: The patient is a 76-year-old female with a senile dementia and abnormal gait, now presented with episodes of generalized shaking, urinary incontinence resembling seizure activities. EEG was done to evaluate for possible ongoing seizure activities. MEDICATIONS: Current treatment include Lasix. No anticonvulsant and no sedation given. TECHNIQUE: EEG was done using 18 electrodes placed on scalp to scalp, scalp to ear montages according to 10/20 International System. Most wakeful portions of recording, background activity consists of a low to medium voltage, well regulated mixture of 7-8 cycles per second bilaterally with good response to physiological stimulation. Eyes opening and eye closure. As recording progressed, there was further attenuation of background and disorganization in the theta range. No asymmetry from [id number]. No paroxysmal events noted. IMPRESSION: Mildly abnormal electroencephalogram in presence of mild diffuse slowing. COMMENT: Above abnormality is a nonspecific finding, but may reflect toxic metabolic derangement or diffuse structural lesion. Absence of paroxysmal event on a single recording does not rule out seizure disorder. Francis Ortiz M.D. DR: GUANAKO JOB#: [id number] CC:
[2017-06-18] VITALS (12 sets, daily range): BP systolic 115–164; BP diastolic 60–87
[2017-06-18] MEDS: NovoLOG Insulin Flexpen SUBQ SCH ×4 (06:30→21:00)
[2017-06-18] MEDS: Nateglinide 60mg tab ORAL SCH ×3 (06:30→17:48)
[2017-06-18 08:00] LABS: BASOPHILS % (AUTO) 1.4 % (0.0-2.0); EOSINOPHILS % (AUTO) 2.5 % (0.0-3.0); LYMPHOCYTES % (AUTO) 41.8 % (20.0-45.0); MEAN CORPUSCULAR HEMOGLOBIN 31.7 PG (27.0-31.0); MEAN CORPUSCULAR HGB CONC 33.5 G/DL (32.0-36.0); MEAN CORPUSCULAR VOLUME 95 FL (80-99); MEAN PLATELET VOLUME 7.4 FL (6.5-10.1); MONOCYTES % (AUTO) 7.4 % (1.0-10.0); NEUTROPHILS % (AUTO) 46.9 % (45.0-75.0); PLATELET COUNT 229 K/UL (150-450); RED BLOOD COUNT 3.41 M/UL (4.20-5.40); RED CELL DISTRIBUTION WIDTH 16.2 % (11.6-14.8)
[2017-06-18 08:21] LABS: PROTHROMBIN TIME 10.4 SEC (9.30-11.50)
[2017-06-18 08:33] LABS: ANION GAP 10 mmol/L (5-15); CALCIUM 9.4 MG/DL (8.5-10.1); CARBON DIOXIDE 24 MMOL/L (21-32); CHLORIDE 108 MMOL/L (98-107); CREATININE 1.4 MG/DL (0.55-1.30); POTASSIUM 4.2 MMOL/L (3.5-5.1); SODIUM 142 MMOL/L (136-145)
[2017-06-18] MEDS: Heparin 5000 units/ml inj SUBQ SCH ×2 (09:00→21:24)
[2017-06-18] MEDS: Aspirin Baby 81mg ORAL SCH (09:00)
--- NOTE | 2017-06-18 13:30 | Pulmonology Progress Note ---
Assessment/Plan Problems: (1) Cardiomyopathy (2) Syncope (3) Diabetes mellitus (4) CAD (coronary artery disease) (5) Dementia (6) Cerebral vascular disease Assessment/Plan for ICd today EF 28% symptomatic treatment keep in teli all meds and notes reviewed Subjective ROS Limited/Unobtainable: No HEENT: Repors: no symptoms Respiratory: Reports: no symptoms Allergies: Coded Allergies: No Known Allergies (Unverified , 06/14/17) Objective Last 24 Hour Vital Signs Date Time Temp Pulse Resp B/P (MAP) Pulse Ox O2 Delivery O2 Flow Rate FiO2 06/18/17 12:44 97.2 74 18 115/62 98 Room Air 06/18/17 08:16 77 18 Room Air 06/18/17 08:05 97.0 73 18 136/70 97 Room Air 06/18/17 08:00 78 06/18/17 04:00 97.2 82 20 141/87 82 Room Air 06/18/17 04:00 75 06/18/17 00:12 98.2 76 20 128/69 97 Room Air 06/18/17 00:00 74 06/17/17 20:00 73 06/17/17 20:00 98.2 79 20 147/75 97 Nasal Cannula 2.0 06/17/17 19:58 69 18 Room Air 06/17/17 16:00 86 06/17/17 15:53 97.5 87 19 114/59 95 Room Air Intake and Output 06/18/17 06/19/17 19:00 07:00 Output Total 300 ml Balance -300 ml Output Urine Total 300 ml Objective family agreed with ICD, scheduled for am Laboratory Tests 06/18/17 07:01: White Blood Count 6.0, Red Blood Count 3.41L, Hemoglobin 10.8L, Hematocrit 32.3L , Mean Corpuscular Volume 95, Mean Corpuscular Hemoglobin 31.7H, Mean Corpuscular Hemoglobin Concent 33.5, Red Cell Distribution Width 16.2H, Platelet Count 229, Mean Platelet Volume 7.4, Neutrophils (%) (Auto) 46.9, Lymphocytes (%) (Auto) 41.8, Monocytes (%) (Auto) 7.4, Eosinophils (%) (Auto) 2.5, Basophils (%) (Auto) 1.4, Prothrombin Time 10.4, Prothromb Time International Ratio 1.0, Activated Partial Thromboplast Time 22L, Sodium Level 142, Potassium Level 4.2, Chloride Level 108H, Carbon Dioxide Level 24, Anion Gap 10, Blood Urea Nitrogen 26H, Creatinine 1.4H, Estimat Glomerular Filtration Rate , Glucose Level 97, Calcium Level 9.4 Current Medications Medications (Trade) Dose Ordered Sig/Yoana Route PRN Reason Start Time Stop Time Status Last Admin Dose Admin Acetaminophen (Tylenol) 650 mg Q4H PRN ORAL fever 06/14/17 21:15 07/14/17 21:14 Al Hydroxide/Mg Hydroxide (Mylanta II) 30 ml Q6H PRN ORAL dyspepsia 06/14/17 21:15 07/14/17 21:14 Albuterol/ Ipratropium (DuoNeb 0.5-3(2.5)mg/3ml) 3 ml Q4H PRN HHN Shortness of Breath 06/14/17 21:15 06/19/17 21:14 Aspirin (ASA) 81 mg DAILY ORAL 06/15/17 17:00 07/15/17 16:59 06/17/17 09:51 Clonidine HCl (Catapres) 0.1 mg Q4H PRN ORAL SBP > 160 06/14/17 21:15 07/14/17 21:14 Clopidogrel Bisulfate (Plavix) 75 mg DAILY ORAL 06/15/17 17:00 07/15/17 16:59 06/17/17 09:48 Dextrose (Dextrose 50%) STAT PRN IV Hypoglycemia 06/14/17 21:15 07/14/17 21:14 Heparin Sodium (Porcine) (Heparin 5000 units/ml) 5,000 units EVERY 12 HOURS SUBQ 06/15/17 09:00 07/15/17 08:59 06/17/17 09:51 Insulin Aspart (NovoLOG) BEFORE MEALS AND HS SUBQ 06/14/17 23:00 07/14/17 22:59 Lorazepam (Ativan 2mg/ml 1ml) 0.5 mg Q4H PRN IV For Anxiety 06/14/17 21:15 06/21/17 21:14 Midodrine (Pro-Amatine) 5 mg THREE TIMES A DAY ORAL 06/16/17 11:00 07/16/17 10:59 06/17/17 18:12 Morphine Sulfate (Morphine Sulfate) 1 mg Q4H PRN IVP For Pain 7-10 06/17/17 16:00 06/24/17 15:59 Nateglinide (Starlix) 30 mg TIAC ORAL 06/18/17 06:30 07/18/17 06:29 Nitroglycerin (Ntg) 0.4 mg Q5M X 3 DOSES PRN SL Prn Chest Pain 06/14/17 21:15 07/14/17 21:14 Ondansetron HCl (Zofran) 4 mg Q6H PRN IVP Nausea & Vomiting 06/14/17 21:15 07/14/17 21:14 Polyethylene Glycol (Miralax) 17 gm HSPRN PRN ORAL Constipation 06/14/17 21:15 07/14/17 21:14 Temazepam (Restoril) 15 mg HSPRN PRN ORAL Insomnia 06/14/17 21:15 06/21/17 21:14 JERI KHAN Jun 18, 2017 13:30
[2017-06-18] MEDS ORDERED: Isovue-M 300 15ml INJ ONE (13:47)
[2017-06-18] MEDS ORDERED: fentaNYL 100 mcg/2 mL IV ONE (14:00)
[2017-06-18] MEDS ORDERED: LR 1000ml ONE (14:00)
[2017-06-18] MEDS ORDERED: NS 275ml ONE (14:00)
[2017-06-18] MEDS ORDERED: Lidocaine 1% MPF 10mg/ml 5ml ONE (14:00)
[2017-06-18] MEDS ORDERED: Sterile Water Irrig 1000ml IRRIG ONE (14:00)
[2017-06-18] MEDS ORDERED: Midazolam 2mg/2ml Inj ONE (14:00)
[2017-06-18] MEDS ORDERED: NS Irrig 1000ml IRRIG ONE (14:05)
--- NOTE | 2017-06-18 14:11 | Pre-Procedure Note/Attestation ---
Pre-Procedure Note/Attestation Complete Prior to Procedure Planned Procedure: left Indications for Procedure Pre-Operative Diagnosis: Severe ischemic cardiomyopathy EF 30%, Syncope Attestation I attest that I discussed the nature of the procedure; its benefits; risks and complications; and alternatives (and the risks and benefits of such alternatives ), prior to the procedure, with the patient (or the patient's legal parts counter representative). I attest that, if there was a reasonable possibility of needing a blood transfusion, the patient (or the patient's legal parts counter representative) was given the [facility] standardized written summary, pursuant to the Rober Toshia Blood Safety Act ([place] Health and Safety Code # 1645, as amended). I attest that I re-evaluated the patient just prior to the surgery and that there has been no change in the patient's H&P, except as documented below: ULISES ALVAREZ Jun 18, 2017 14:10
[2017-06-18] MEDS ORDERED: Lidocaine 1% Plain 30 ml INJ ONE (14:29)
--- NOTE | 2017-06-18 14:41 | Immediate Post-Op Evaluation ---
Immediate Post-Op Evalulation Immediate Post-Op Evalulation Procedure: AICD placement Date of Evaluation: Jun 18, 2017 Time of Evaluation: 15:28 IV Fluids: 300 Blood Products: 0 Estimated Blood Loss: min Urinary Output: 0 Blood Pressure Systolic: 137 Blood Pressure Diastolic: 71 Pulse Rate: 82 Respiratory Rate: 16 O2 Sat by Pulse Oximetry: 100 Temperature (Fahrenheit): 98.1 Pain Score (1-10): 0 Nausea: No Vomiting: No Complications 0 Patient Status: awake, reacts, patent, none Hydration Status: adequate Drug: Ancef 1g Given Within 1 Hr of Incision: Yes Time Given: 14:25 NBA RANDHAWA M.D. Jun 18, 2017 14:41
[2017-06-18] MEDS ORDERED: DiphenhydrAMINE 50mg/ml Inj IVP PRN (14:45)
[2017-06-18] MEDS ORDERED: fentaNYL 100 mcg/2 mL IV PRN (14:45)
[2017-06-18] MEDS ORDERED: LORazepam Inj 2mg/ml 1ml IV PRN (14:45)
--- NOTE | 2017-06-18 15:26 | Brief Operative Note ---
Immediate Post Operative Note Operative Note Pre-op Diagnosis: Severe ischemic cardiomyopathy EF 30%, Syncope Procedure: SJ VVI ICD implant dictated [id number] Post-op Diagnosis: same as pre-op Anesthesia: MAC Specimen: none Complications: none Condition: stable Fluids: None Estimated Blood Loss: minimal Implant(s) used?: Yes ULISES ALVAREZ Jun 18, 2017 15:26
[2017-06-18] MEDS ORDERED: Morphine Sulfate 4mg/ml Inj IVP PRN (15:30)
[2017-06-18] MEDS ORDERED: Tylenol #3 tab (300mg/30mg) ORAL PRN (15:30)
--- NOTE | 2017-06-18 17:05 | Internal Med Progress Note ---
Subjective Date of Service: Jun 18, 2017 Physician Name Tripp Rodriguez Attending Physician Kishan Beckman MD Current Medications Medications (Trade) Dose Ordered Sig/Yoana Route PRN Reason Start Time Stop Time Status Last Admin Dose Admin Acetaminophen (Tylenol) 650 mg Q4H PRN ORAL fever 06/14/17 21:15 07/14/17 21:14 Acetaminophen (Tylenol) 650 mg Q6H PRN ORAL Fever/Headache/Mild Pain 06/18/17 15:30 07/18/17 15:29 Acetaminophen/ Codeine Phosphate (Tylenol #3) 1 tab Q4H PRN ORAL Moderate Pain (Pain Scale 4-6) 06/18/17 15:30 06/25/17 15:29 Al Hydroxide/Mg Hydroxide (Mylanta II) 30 ml Q6H PRN ORAL dyspepsia 06/14/17 21:15 07/14/17 21:14 Albuterol/ Ipratropium (DuoNeb 0.5-3(2.5)mg/3ml) 3 ml Q4H PRN HHN Shortness of Breath 06/14/17 21:15 06/19/17 21:14 Aspirin (ASA) 81 mg DAILY ORAL 06/15/17 17:00 07/15/17 16:59 06/17/17 09:51 Cefazolin Sodium 1 gm/Dextrose 55 ml @ 110 mls/hr Q8HR IVP 06/18/17 22:00 06/25/17 21:59 Clonidine HCl (Catapres) 0.1 mg Q4H PRN ORAL SBP > 160 06/14/17 21:15 07/14/17 21:14 Clopidogrel Bisulfate (Plavix) 75 mg DAILY ORAL 06/15/17 17:00 07/15/17 16:59 06/17/17 09:48 Dextrose (Dextrose 50%) STAT PRN IV Hypoglycemia 06/14/17 21:15 07/14/17 21:14 Heparin Sodium (Porcine) (Heparin 5000 units/ml) 5,000 units EVERY 12 HOURS SUBQ 06/15/17 09:00 07/15/17 08:59 06/17/17 09:51 Insulin Aspart (NovoLOG) BEFORE MEALS AND HS SUBQ 06/14/17 23:00 07/14/17 22:59 Lorazepam (Ativan 2mg/ml 1ml) 0.5 mg Q4H PRN IV For Anxiety 06/14/17 21:15 06/21/17 21:14 Midodrine (Pro-Amatine) 5 mg THREE TIMES A DAY ORAL 06/16/17 11:00 07/16/17 10:59 06/17/17 18:12 Morphine Sulfate (Morphine Sulfate) 1 mg Q4H PRN IVP For Pain 7-10 06/17/17 16:00 06/24/17 15:59 Morphine Sulfate (Morphine Sulfate) 2 mg Q1H PRN IVP Severe Pain (Pain Scale 7-10) 06/18/17 15:30 06/25/17 15:29 Nateglinide (Starlix) 30 mg TIAC ORAL 06/18/17 06:30 07/18/17 06:29 Nitroglycerin (Ntg) 0.4 mg Q5M X 3 DOSES PRN SL Prn Chest Pain 06/14/17 21:15 07/14/17 21:14 Ondansetron HCl (Zofran) 4 mg Q6H PRN IVP Nausea & Vomiting 06/18/17 15:30 07/18/17 15:29 Polyethylene Glycol (Miralax) 17 gm HSPRN PRN ORAL Constipation 06/14/17 21:15 07/14/17 21:14 Temazepam (Restoril) 15 mg HSPRN PRN ORAL Insomnia 06/14/17 21:15 06/21/17 21:14 Allergies: Coded Allergies: No Known Allergies (Unverified , 06/14/17) ROS Limited/Unobtainable: No Constitutional: Reports: no symptoms HEENT: Reports: no symptoms Cardiovascular: Reports: no symptoms Respiratory: Reports: no symptoms Gastrointestinal/Abdominal: Reports: no symptoms Genitourinary: Reports: no symptoms Neurologic/Psychiatric: Reports: no symptoms Subjective 76 YO F admitted with syncope. Cover for Int Shawn-Dr Beckman.. S/P AICD Wednesday Objective Last Vital Signs Date Time Temp Pulse Resp B/P (MAP) Pulse Ox O2 Delivery O2 Flow Rate FiO2 06/18/17 16:24 97.0 78 18 160/80 99 Nasal Cannula 2.0 Laboratory Tests Test 06/18/17 07:01 White Blood Count 6.0 K/UL (4.8-10.8) Red Blood Count 3.41 M/UL (4.20-5.40) L Hemoglobin 10.8 G/DL (12.0-16.0) L Hematocrit 32.3 % (37.0-47.0) L Mean Corpuscular Volume 95 FL (80-99) Mean Corpuscular Hemoglobin 31.7 PG (27.0-31.0) H Mean Corpuscular Hemoglobin Concent 33.5 G/DL (32.0-36.0) Red Cell Distribution Width 16.2 % (11.6-14.8) H Platelet Count 229 K/UL (150-450) Mean Platelet Volume 7.4 FL (6.5-10.1) Neutrophils (%) (Auto) 46.9 % (45.0-75.0) Lymphocytes (%) (Auto) 41.8 % (20.0-45.0) Monocytes (%) (Auto) 7.4 % (1.0-10.0) Eosinophils (%) (Auto) 2.5 % (0.0-3.0) Basophils (%) (Auto) 1.4 % (0.0-2.0) Prothrombin Time 10.4 SEC (9.30-11.50) Prothromb Time International Ratio 1.0 (0.9-1.1) Activated Partial Thromboplast Time 22 SEC (23-33) L Sodium Level 142 MMOL/L (136-145) Potassium Level 4.2 MMOL/L (3.5-5.1) Chloride Level 108 MMOL/L (98-107) H Carbon Dioxide Level 24 MMOL/L (21-32) Anion Gap 10 mmol/L (5-15) Blood Urea Nitrogen 26 mg/dL (7-18) H Creatinine 1.4 MG/DL (0.55-1.30) H Estimat Glomerular Filtration Rate mL/min (>60) Glucose Level 97 MG/DL (74-106) Calcium Level 9.4 MG/DL (8.5-10.1) Intake and Output 06/18/17 06/19/17 19:00 07:00 Intake Total 400 ml Output Total 300 ml Balance 100 ml IV Total 400 ml Output Urine Total 300 ml Objective General Appearance: WD/WN, no apparent distress, alert EENT: PERRL/EOMI, normal ENT inspection Neck: non-tender, normal alignment, supple Cardiovascular: normal peripheral pulses, normal rate, regular rhythm, no gallop/murmur, no JVD, other - hypotensive Respiratory/Chest: chest wall non-tender, lungs clear, normal breath sounds, no respiratory distress, no accessory muscle use Abdomen: normal bowel sounds, non tender, soft, no organomegaly, no mass Extremities: normal range of motion 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 S/P AICD placement [facility] 06/18/17--see EP cardiology note(Dr Childs). (2) Cerebral vascular disease (3) Syncope Assessment & Plan: MRI brain=no acute dis. See neruo and cardiol note. (4) Diabetes mellitus Assessment & Plan: See endocrinology note. Continue starlix and novolog sliding scale. (5) CAD (coronary artery disease) Assessment & Plan: S/P CABG. See Cardiology note - Dr Us Status: progressing Assessment/Plan Discharge planning TRIPP RODRIGUEZ Jun 18, 2017 17:05
--- NOTE | 2017-06-18 18:07 | Diagnostic Imaging Report ---
Indication: Status post pacemaker Technique: One view of the chest Comparison: 06/15/2017 Findings: Interim placement left chest unifocal AICD, lead tip in the expected position at the right ventricular apex. No pneumothorax. Lungs pleural spaces are clear. There are median sternotomy sutures Impression: Status post pacemaker. No radiographically evident complication
--- NOTE | 2017-06-18 19:44 | Cardiology Progress Note ---
Assessment/Plan Assessment/Plan 1. Vasodepressor syncope again on 03/16/2017 jeanie sitting up in the chair 2. History of orthostatic hypotension. 3. History of ischemic cardiomyopathy, being considered for possible intracardiac defibrillator placement. 4. Coronary artery disease, status post coronary artery bypass graftin. 5. Diabetes mellitus. 6. Chronic kidney disease stage 3. 7. History of hypertension 8. orthostatic hypotension shortly after my visit with pt 06/17 had a syncope episode while sittign up bp documented to be in lea 50-60's hr was stable inteh 80-90s at thei time as i discussed with staff , eventually got back in bed and bp sif elevated tele reviewed neg s/p icd implantatuion all torp neg chem are fine off all diuretic and entresto on ecotrin and plavix Subjective Cardiovascular: Denies: chest pain, irregular heart rate, lightheadedness Respiratory: Denies: shortness of breath Gastrointestinal/Abdominal: Denies: abdominal pain Genitourinary: Denies: burning Objective Last 24 Hour Vital Signs Date Time Temp Pulse Resp B/P (MAP) Pulse Ox O2 Delivery O2 Flow Rate FiO2 06/18/17 16:24 97.0 78 18 160/80 99 Nasal Cannula 2.0 06/18/17 16:00 76 06/18/17 16:00 98.1 75 20 164/71 100 Nasal Cannula 2.0 06/18/17 15:50 74 20 147/73 100 Nasal Cannula 2.0 06/18/17 15:38 77 20 136/67 100 Nasal Cannula 2.0 06/18/17 15:33 76 20 118/66 100 Simple Mask 8.0 06/18/17 15:28 79 20 127/60 100 Simple Mask 8.0 06/18/17 15:27 82 16 100 06/18/17 15:23 98.1 78 20 137/71 100 Simple Mask 8.0 06/18/17 12:44 97.2 74 18 115/62 98 Room Air 06/18/17 12:00 77 06/18/17 08:16 77 18 Room Air 06/18/17 08:05 97.0 73 18 136/70 97 Room Air 06/18/17 08:00 78 06/18/17 04:00 97.2 82 20 141/87 82 Room Air 06/18/17 04:00 75 06/18/17 00:12 98.2 76 20 128/69 97 Room Air 06/18/17 00:00 74 06/17/17 20:00 73 06/17/17 20:00 98.2 79 20 147/75 97 Nasal Cannula 2.0 06/17/17 19:58 69 18 Room Air General Appearance: no apparent distress Cardiovascular: normal rate, regular rhythm Respiratory/Chest: lungs clear, normal breath sounds Abdomen: normal bowel sounds, non tender, soft Extremities: no swelling Intake and Output 06/18/17 06/19/17 19:00 07:00 Intake Total 520 ml Output Total 300 ml 200 ml Balance 220 ml -200 ml Intake Oral 120 ml IV Total 400 ml Output Urine Total 300 ml 200 ml # Bowel Movements 1 Laboratory Tests Test 06/18/17 07:01 White Blood Count 6.0 K/UL (4.8-10.8) Red Blood Count 3.41 M/UL (4.20-5.40) L Hemoglobin 10.8 G/DL (12.0-16.0) L Hematocrit 32.3 % (37.0-47.0) L Mean Corpuscular Volume 95 FL (80-99) Mean Corpuscular Hemoglobin 31.7 PG (27.0-31.0) H Mean Corpuscular Hemoglobin Concent 33.5 G/DL (32.0-36.0) Red Cell Distribution Width 16.2 % (11.6-14.8) H Platelet Count 229 K/UL (150-450) Mean Platelet Volume 7.4 FL (6.5-10.1) Neutrophils (%) (Auto) 46.9 % (45.0-75.0) Lymphocytes (%) (Auto) 41.8 % (20.0-45.0) Monocytes (%) (Auto) 7.4 % (1.0-10.0) Eosinophils (%) (Auto) 2.5 % (0.0-3.0) Basophils (%) (Auto) 1.4 % (0.0-2.0) Prothrombin Time 10.4 SEC (9.30-11.50) Prothromb Time International Ratio 1.0 (0.9-1.1) Activated Partial Thromboplast Time 22 SEC (23-33) L Sodium Level 142 MMOL/L (136-145) Potassium Level 4.2 MMOL/L (3.5-5.1) Chloride Level 108 MMOL/L (98-107) H Carbon Dioxide Level 24 MMOL/L (21-32) Anion Gap 10 mmol/L (5-15) Blood Urea Nitrogen 26 mg/dL (7-18) H Creatinine 1.4 MG/DL (0.55-1.30) H Estimat Glomerular Filtration Rate mL/min (>60) Glucose Level 97 MG/DL (74-106) Calcium Level 9.4 MG/DL (8.5-10.1) HIRO GABRIEL Jun 18, 2017 19:44
[2017-06-18] MEDS: ceFAZolin sod 1 GM in D5W 55 ML IVP SCH (21:28)
[2017-06-19] VITALS: BP 136/64
[2017-06-19 04:00] VITALS: BP 158/83
[2017-06-19] MEDS: ceFAZolin sod 1 GM in D5W 55 ML IVP SCH ×3 (05:54→21:43)
[2017-06-19] MEDS: NovoLOG Insulin Flexpen SUBQ SCH ×4 (05:56→21:00)
--- NOTE | 2017-06-19 06:59 | General Progress Note ---
Assessment/Plan Problem List: (1) Diabetes mellitus ICD Codes: E11.9 - Type 2 diabetes mellitus without complications SNOMED: 32015983 (2) Dementia ICD Codes: F03.90 - Unspecified dementia without behavioral disturbance SNOMED: 58802144 (3) CAD (coronary artery disease) ICD Codes: I25.10 - Atherosclerotic heart disease of [place] coronary artery without angina pectoris SNOMED: 76096922 (4) Cardiomyopathy ICD Codes: I42.9 - Cardiomyopathy, unspecified SNOMED: 45753109 Assessment/Plan continue Starlix 30 mg ac tid continue SSI - no need for insulin after DC discussed with son Subjective Allergies: Coded Allergies: No Known Allergies (Unverified , 06/14/17) All Systems: reviewed and negative except above Subjective doing fine - son is at bedside Objective Last 24 Hour Vital Signs Date Time Temp Pulse Resp B/P (MAP) Pulse Ox O2 Delivery O2 Flow Rate FiO2 06/19/17 04:00 97.2 84 18 158/83 96 Room Air 06/19/17 03:47 77 06/19/17 00:00 97.9 70 16 136/64 98 Room Air 2.0 06/18/17 23:52 74 06/18/17 21:13 75 16 Room Air 06/18/17 20:00 81 06/18/17 20:00 97.9 79 18 126/64 100 Nasal Cannula 2.0 06/18/17 16:24 97.0 78 18 160/80 99 Nasal Cannula 2.0 06/18/17 16:00 76 06/18/17 16:00 98.1 75 20 164/71 100 Nasal Cannula 2.0 06/18/17 15:50 74 20 147/73 100 Nasal Cannula 2.0 06/18/17 15:38 77 20 136/67 100 Nasal Cannula 2.0 06/18/17 15:33 76 20 118/66 100 Simple Mask 8.0 06/18/17 15:28 79 20 127/60 100 Simple Mask 8.0 06/18/17 15:27 82 16 100 06/18/17 15:23 98.1 78 20 137/71 100 Simple Mask 8.0 06/18/17 12:44 97.2 74 18 115/62 98 Room Air 06/18/17 12:00 77 06/18/17 08:16 77 18 Room Air 06/18/17 08:05 97.0 73 18 136/70 97 Room Air 06/18/17 08:00 78 Laboratory Tests 06/18/17 07:01: White Blood Count 6.0, Red Blood Count 3.41L, Hemoglobin 10.8L, Hematocrit 32.3L , Mean Corpuscular Volume 95, Mean Corpuscular Hemoglobin 31.7H, Mean Corpuscular Hemoglobin Concent 33.5, Red Cell Distribution Width 16.2H, Platelet Count 229, Mean Platelet Volume 7.4, Neutrophils (%) (Auto) 46.9, Lymphocytes (%) (Auto) 41.8, Monocytes (%) (Auto) 7.4, Eosinophils (%) (Auto) 2.5, Basophils (%) (Auto) 1.4, Prothrombin Time 10.4, Prothromb Time International Ratio 1.0, Activated Partial Thromboplast Time 22L, Sodium Level 142, Potassium Level 4.2, Chloride Level 108H, Carbon Dioxide Level 24, Anion Gap 10, Blood Urea Nitrogen 26H, Creatinine 1.4H, Estimat Glomerular Filtration Rate , Glucose Level 97, Calcium Level 9.4 06/19/17 05:40: White Blood Count [Pending], Red Blood Count [Pending], Hemoglobin [Pending], Hematocrit [Pending], Mean Corpuscular Volume [Pending], Mean Corpuscular Hemoglobin [Pending], Mean Corpuscular Hemoglobin Concent [Pending], Red Cell Distribution Width [Pending], Platelet Count [Pending], Mean Platelet Volume [ Pending], Neutrophils (%) (Auto) [Pending], Lymphocytes (%) (Auto) [Pending], Monocytes (%) (Auto) [Pending], Eosinophils (%) (Auto) [Pending], Basophils (%) (Auto) [Pending], Sodium Level [Pending], Potassium Level [Pending], Chloride Level [Pending], Carbon Dioxide Level [Pending], Blood Urea Nitrogen [Pending], Creatinine [Pending], Estimat Glomerular Filtration Rate [Pending], Glucose Level [Pending], Calcium Level [Pending] Height (Feet): 5 Height (Inches): 6.00 Weight (Pounds): 147 General Appearance: no apparent distress Neck: normal alignment Cardiovascular: normal rate Respiratory/Chest: lungs clear Abdomen: normal bowel sounds Pelvis: normal external exam Edema: no edema noted Arm (L), no edema noted Arm (R), no edema noted Leg (L), no edema noted Leg (R), no edema noted Pedal (L), no edema noted Pedal (R), no edema noted Generalized Objective Current Medications Medications (Trade) Dose Ordered Sig/Yoana Route PRN Reason Start Time Stop Time Status Last Admin Dose Admin Acetaminophen (Tylenol) 650 mg Q4H PRN ORAL fever 06/14/17 21:15 07/14/17 21:14 06/18/17 21:30 Acetaminophen (Tylenol) 650 mg Q6H PRN ORAL Fever/Headache/Mild Pain 06/18/17 15:30 07/18/17 15:29 Acetaminophen/ Codeine Phosphate (Tylenol #3) 1 tab Q4H PRN ORAL Moderate Pain (Pain Scale 4-6) 06/18/17 15:30 06/25/17 15:29 Al Hydroxide/Mg Hydroxide (Mylanta II) 30 ml Q6H PRN ORAL dyspepsia 06/14/17 21:15 07/14/17 21:14 Albuterol/ Ipratropium (DuoNeb 0.5-3(2.5)mg/3ml) 3 ml Q4H PRN HHN Shortness of Breath 06/14/17 21:15 06/19/17 21:14 Aspirin (ASA) 81 mg DAILY ORAL 06/15/17 17:00 07/15/17 16:59 06/17/17 09:51 Cefazolin Sodium 1 gm/Dextrose 55 ml @ 110 mls/hr Q8HR IVP 06/18/17 22:00 06/25/17 21:59 06/19/17 05:54 Clonidine HCl (Catapres) 0.1 mg Q4H PRN ORAL SBP > 160 06/14/17 21:15 07/14/17 21:14 Clopidogrel Bisulfate (Plavix) 75 mg DAILY ORAL 06/15/17 17:00 07/15/17 16:59 06/17/17 09:48 Dextrose (Dextrose 50%) STAT PRN IV Hypoglycemia 06/14/17 21:15 07/14/17 21:14 Heparin Sodium (Porcine) (Heparin 5000 units/ml) 5,000 units EVERY 12 HOURS SUBQ 06/15/17 09:00 07/15/17 08:59 06/18/17 21:24 Insulin Aspart (NovoLOG) BEFORE MEALS AND HS SUBQ 06/14/17 23:00 07/14/17 22:59 Lorazepam (Ativan 2mg/ml 1ml) 0.5 mg Q4H PRN IV For Anxiety 06/14/17 21:15 06/21/17 21:14 Midodrine (Pro-Amatine) 5 mg THREE TIMES A DAY ORAL 06/16/17 11:00 07/16/17 10:59 06/18/17 17:51 Morphine Sulfate (Morphine Sulfate) 1 mg Q4H PRN IVP For Pain 7-10 06/17/17 16:00 06/24/17 15:59 Morphine Sulfate (Morphine Sulfate) 2 mg Q1H PRN IVP Severe Pain (Pain Scale 7-10) 06/18/17 15:30 06/25/17 15:29 Nateglinide (Starlix) 30 mg TIAC ORAL 06/18/17 06:30 07/18/17 06:29 06/18/17 17:48 Nitroglycerin (Ntg) 0.4 mg Q5M X 3 DOSES PRN SL Prn Chest Pain 06/14/17 21:15 07/14/17 21:14 Ondansetron HCl (Zofran) 4 mg Q6H PRN IVP Nausea & Vomiting 06/18/17 15:30 07/18/17 15:29 Polyethylene Glycol (Miralax) 17 gm HSPRN PRN ORAL Constipation 06/14/17 21:15 07/14/17 21:14 Temazepam (Restoril) 15 mg HSPRN PRN ORAL Insomnia 06/14/17 21:15 06/21/17 21:14 Item Value Date Time Bedside Blood Glucose 103 mg/dl 06/19/17 0556 Bedside Blood Glucose 158 mg/dl H 06/18/17 2100 Bedside Blood Glucose 102 mg/dl 06/18/17 1630 Bedside Blood Glucose 98 mg/dl 06/18/17 1130 ELINOR CADET Jun 19, 2017 06:58
[2017-06-19 07:14] LABS: ANION GAP 11 mmol/L (5-15); CARBON DIOXIDE 21 MMOL/L (21-32); CHLORIDE 108 MMOL/L (98-107); CREATININE 1.4 MG/DL (0.55-1.30); POTASSIUM 4.3 MMOL/L (3.5-5.1); SODIUM 140 MMOL/L (136-145)
[2017-06-19 07:38] LABS: MEAN CORPUSCULAR HEMOGLOBIN 30.5 PG (27.0-31.0); MEAN CORPUSCULAR VOLUME 95 FL (80-99); MEAN PLATELET VOLUME 7.3 FL (6.5-10.1); PLATELET COUNT 229 K/UL (150-450); RED BLOOD COUNT 3.62 M/UL (4.20-5.40); RED CELL DISTRIBUTION WIDTH 16.1 % (11.6-14.8); WHITE BLOOD COUNT 3.2 K/UL (4.8-10.8)
[2017-06-19] MEDS: Nateglinide 60mg tab ORAL SCH ×3 (07:48→17:16)
[2017-06-19 08:00] VITALS: BP_SYST 114; BP_SYST 168; BP_DIAS 60; BP_DIAS 64
[2017-06-19] MEDS: Aspirin Baby 81mg ORAL SCH (08:57)
[2017-06-19] MEDS: Heparin 5000 units/ml inj SUBQ SCH ×2 (08:59→21:44)
[2017-06-19] MEDS ORDERED: Tubing IV Secondary IV ONE (09:29)
[2017-06-19 09:52] LABS: BAND NEUTROPHILS % (MANUAL) 0 % (0-8); BASOPHILS % (MANUAL) 0 % (0-2); EOSINOPHILS % (MANUAL) 3 % (0-3); LYMPHOCYTES % (MANUAL) 28 % (20-45); NEUTROPHILS % (MANUAL) 61 % (45-75); PLATELET ESTIMATE ADEQUATE; PLATELET MORPHOLOGY NORMAL; TOTAL CELLS COUNTED 100
--- NOTE | 2017-06-19 10:24 | Internal Med Progress Note ---
Subjective Date of Service: Jun 19, 2017 Physician Name Tripp Rodriguez Attending Physician Kishan Beckman MD Current Medications Medications (Trade) Dose Ordered Sig/Yoana Route PRN Reason Start Time Stop Time Status Last Admin Dose Admin Acetaminophen (Tylenol) 650 mg Q4H PRN ORAL fever 06/14/17 21:15 07/14/17 21:14 06/18/17 21:30 Acetaminophen (Tylenol) 650 mg Q6H PRN ORAL Fever/Headache/Mild Pain 06/18/17 15:30 07/18/17 15:29 Acetaminophen/ Codeine Phosphate (Tylenol #3) 1 tab Q4H PRN ORAL Moderate Pain (Pain Scale 4-6) 06/18/17 15:30 06/25/17 15:29 Al Hydroxide/Mg Hydroxide (Mylanta II) 30 ml Q6H PRN ORAL dyspepsia 06/14/17 21:15 07/14/17 21:14 Albuterol/ Ipratropium (DuoNeb 0.5-3(2.5)mg/3ml) 3 ml Q4H PRN HHN Shortness of Breath 06/14/17 21:15 06/19/17 21:14 Aspirin (ASA) 81 mg DAILY ORAL 06/15/17 17:00 07/15/17 16:59 06/19/17 08:57 Cefazolin Sodium 1 gm/Dextrose 55 ml @ 110 mls/hr Q8HR IVP 06/18/17 22:00 06/25/17 21:59 06/19/17 05:54 Clonidine HCl (Catapres) 0.1 mg Q4H PRN ORAL SBP > 160 06/14/17 21:15 07/14/17 21:14 Clopidogrel Bisulfate (Plavix) 75 mg DAILY ORAL 06/15/17 17:00 07/15/17 16:59 06/19/17 08:57 Dextrose (Dextrose 50%) STAT PRN IV Hypoglycemia 06/14/17 21:15 07/14/17 21:14 Heparin Sodium (Porcine) (Heparin 5000 units/ml) 5,000 units EVERY 12 HOURS SUBQ 06/15/17 09:00 07/15/17 08:59 06/19/17 08:59 Insulin Aspart (NovoLOG) BEFORE MEALS AND HS SUBQ 06/14/17 23:00 07/14/17 22:59 Lorazepam (Ativan 2mg/ml 1ml) 0.5 mg Q4H PRN IV For Anxiety 06/14/17 21:15 06/21/17 21:14 Midodrine (Pro-Amatine) 5 mg THREE TIMES A DAY ORAL 06/16/17 11:00 07/16/17 10:59 06/19/17 08:57 Morphine Sulfate (Morphine Sulfate) 1 mg Q4H PRN IVP For Pain 7-10 06/17/17 16:00 06/24/17 15:59 Morphine Sulfate (Morphine Sulfate) 2 mg Q1H PRN IVP Severe Pain (Pain Scale 7-10) 06/18/17 15:30 06/25/17 15:29 Nateglinide (Starlix) 30 mg TIAC ORAL 06/18/17 06:30 07/18/17 06:29 06/19/17 07:48 Nitroglycerin (Ntg) 0.4 mg Q5M X 3 DOSES PRN SL Prn Chest Pain 06/14/17 21:15 07/14/17 21:14 Ondansetron HCl (Zofran) 4 mg Q6H PRN IVP Nausea & Vomiting 06/18/17 15:30 07/18/17 15:29 Polyethylene Glycol (Miralax) 17 gm HSPRN PRN ORAL Constipation 06/14/17 21:15 07/14/17 21:14 Temazepam (Restoril) 15 mg HSPRN PRN ORAL Insomnia 06/14/17 21:15 06/21/17 21:14 Allergies: Coded Allergies: No Known Allergies (Unverified , 06/14/17) ROS Limited/Unobtainable: No Constitutional: Reports: no symptoms HEENT: Reports: no symptoms Cardiovascular: Reports: no symptoms Respiratory: Reports: no symptoms Gastrointestinal/Abdominal: Reports: no symptoms Genitourinary: Reports: no symptoms Neurologic/Psychiatric: Reports: no symptoms Subjective 76 YO F admitted with syncope. Cover for Int Shawn-Dr Beckman.. S/P AICD Wednesday Objective Last Vital Signs Date Time Temp Pulse Resp B/P (MAP) Pulse Ox O2 Delivery O2 Flow Rate FiO2 06/19/17 08:07 72 16 Room Air 06/19/17 08:00 97.0 114/64 95 06/19/17 00:00 2.0 Laboratory Tests Test 06/19/17 05:40 White Blood Count 3.2 K/UL (4.8-10.8) L Red Blood Count 3.62 M/UL (4.20-5.40) L Hemoglobin 11.1 G/DL (12.0-16.0) L Hematocrit 34.5 % (37.0-47.0) L Mean Corpuscular Volume 95 FL (80-99) Mean Corpuscular Hemoglobin 30.5 PG (27.0-31.0) Mean Corpuscular Hemoglobin Concent 32.0 G/DL (32.0-36.0) Red Cell Distribution Width 16.1 % (11.6-14.8) H Platelet Count 229 K/UL (150-450) Mean Platelet Volume 7.3 FL (6.5-10.1) Neutrophils (%) (Auto) % (45.0-75.0) Lymphocytes (%) (Auto) % (20.0-45.0) Monocytes (%) (Auto) % (1.0-10.0) Eosinophils (%) (Auto) % (0.0-3.0) Basophils (%) (Auto) % (0.0-2.0) Differential Total Cells Counted 100 Neutrophils % (Manual) 61 % (45-75) Lymphocytes % (Manual) 28 % (20-45) Monocytes % (Manual) 8 % (1-10) Eosinophils % (Manual) 3 % (0-3) Basophils % (Manual) 0 % (0-2) Band Neutrophils 0 % (0-8) Platelet Estimate Adequate Platelet Morphology Normal Sodium Level 140 MMOL/L (136-145) Potassium Level 4.3 MMOL/L (3.5-5.1) Chloride Level 108 MMOL/L (98-107) H Carbon Dioxide Level 21 MMOL/L (21-32) Anion Gap 11 mmol/L (5-15) Blood Urea Nitrogen 21 mg/dL (7-18) H Creatinine 1.4 MG/DL (0.55-1.30) H Estimat Glomerular Filtration Rate mL/min (>60) Glucose Level 111 MG/DL (74-106) H Calcium Level 9.0 MG/DL (8.5-10.1) Objective General Appearance: WD/WN, no apparent distress, alert EENT: PERRL/EOMI, normal ENT inspection Neck: non-tender, normal alignment, supple Cardiovascular: normal peripheral pulses, normal rate, regular rhythm, no gallop/murmur, no JVD, other - hypotensive Respiratory/Chest: chest wall non-tender, lungs clear, normal breath sounds, no respiratory distress, no accessory muscle use Abdomen: normal bowel sounds, non tender, soft, no organomegaly, no mass Extremities: normal range of motion Neurologic: 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 S/P AICD placement Wed06/18/17--see EP cardiology note(Dr Childs). (2) Cerebral vascular disease (3) Syncope Assessment & Plan: MRI brain=no acute dis. See neruo and cardiol note. (4) Diabetes mellitus Assessment & Plan: See endocrinology note. Continue starlix and novolog sliding scale. (5) CAD (coronary artery disease) Assessment & Plan: S/P CABG. See Cardiology note - Dr Us Status: progressing Assessment/Plan Discharge planning: home health with home PT TRIPP RODRIGUEZ Jun 19, 2017 10:24
[2017-06-19 12:00] VITALS: BP 119/75
[2017-06-19 16:00] VITALS: BP 124/63
--- NOTE | 2017-06-19 16:31 | Pulmonology Progress Note ---
Assessment/Plan Problems: (1) Cardiomyopathy (2) Syncope (3) Diabetes mellitus (4) CAD (coronary artery disease) (5) Dementia (6) Cerebral vascular disease Assessment/Plan s/p ICD yesterday EF 28% symptomatic treatment keep in teli all meds and notes reviewed dc planning if ok with cardio Subjective ROS Limited/Unobtainable: No Interval Events: s/P ICD Allergies: Coded Allergies: No Known Allergies (Unverified , 06/14/17) Objective Last 24 Hour Vital Signs Date Time Temp Pulse Resp B/P (MAP) Pulse Ox O2 Delivery O2 Flow Rate FiO2 06/19/17 12:00 97.8 95 20 119/75 95 Room Air 06/19/17 12:00 93 06/19/17 08:07 72 16 Room Air 06/19/17 08:00 97.0 91 18 114/64 95 Room Air 06/19/17 08:00 91 06/19/17 04:00 97.2 84 18 158/83 96 Room Air 06/19/17 03:47 77 06/19/17 00:00 97.9 70 16 136/64 98 Room Air 2.0 06/18/17 23:52 74 06/18/17 21:13 75 16 Room Air 06/18/17 20:00 81 06/18/17 20:00 97.9 79 18 126/64 100 Nasal Cannula 2.0 Objective family agreed with ICD, scheduled for am General Appearance: WD/WN HEENT: normocephalic, atraumatic Respiratory/Chest: chest wall non-tender, lungs clear Breasts: no masses Cardiovascular: normal peripheral pulses Abdomen: normal bowel sounds, no organomegaly Extremities: no cyanosis, no clubbing Neurologic/Psychiatric: 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 normal Laboratory Tests 06/19/17 05:40: White Blood Count 3.2L, Red Blood Count 3.62L, Hemoglobin 11.1L, Hematocrit 34.5L, Mean Corpuscular Volume 95, Mean Corpuscular Hemoglobin 30.5, Mean Corpuscular Hemoglobin Concent 32.0, Red Cell Distribution Width 16.1H, Platelet Count 229, Mean Platelet Volume 7.3, Neutrophils (%) (Auto) , Lymphocytes (%) (Auto) , Monocytes (%) (Auto) , Eosinophils (%) (Auto) , Basophils (%) (Auto) , Differential Total Cells Counted 100, Neutrophils % ( Manual) 61, Lymphocytes % (Manual) 28, Monocytes % (Manual) 8, Eosinophils % ( Manual) 3, Basophils % (Manual) 0, Band Neutrophils 0, Platelet Estimate Adequate, Platelet Morphology Normal, Sodium Level 140, Potassium Level 4.3, Chloride Level 108H, Carbon Dioxide Level 21, Anion Gap 11, Blood Urea Nitrogen 21H, Creatinine 1.4H, Estimat Glomerular Filtration Rate , Glucose Level 111H, Calcium Level 9.0 Current Medications Medications (Trade) Dose Ordered Sig/Yoana Route PRN Reason Start Time Stop Time Status Last Admin Dose Admin Acetaminophen (Tylenol) 650 mg Q4H PRN ORAL fever 06/14/17 21:15 07/14/17 21:14 06/19/17 12:34 Acetaminophen (Tylenol) 650 mg Q6H PRN ORAL Fever/Headache/Mild Pain 06/18/17 15:30 07/18/17 15:29 Acetaminophen/ Codeine Phosphate (Tylenol #3) 1 tab Q4H PRN ORAL Moderate Pain (Pain Scale 4-6) 06/18/17 15:30 06/25/17 15:29 Al Hydroxide/Mg Hydroxide (Mylanta II) 30 ml Q6H PRN ORAL dyspepsia 06/14/17 21:15 07/14/17 21:14 Albuterol/ Ipratropium (DuoNeb 0.5-3(2.5)mg/3ml) 3 ml Q4H PRN HHN Shortness of Breath 06/14/17 21:15 06/19/17 21:14 Aspirin (ASA) 81 mg DAILY ORAL 06/15/17 17:00 07/15/17 16:59 06/19/17 08:57 Cefazolin Sodium 1 gm/Dextrose 55 ml @ 110 mls/hr Q8HR IVP 06/18/17 22:00 06/25/17 21:59 06/19/17 13:34 Clonidine HCl (Catapres) 0.1 mg Q4H PRN ORAL SBP > 160 06/14/17 21:15 07/14/17 21:14 Clopidogrel Bisulfate (Plavix) 75 mg DAILY ORAL 06/15/17 17:00 07/15/17 16:59 06/19/17 08:57 Dextrose (Dextrose 50%) STAT PRN IV Hypoglycemia 06/14/17 21:15 07/14/17 21:14 Heparin Sodium (Porcine) (Heparin 5000 units/ml) 5,000 units EVERY 12 HOURS SUBQ 06/15/17 09:00 07/15/17 08:59 06/19/17 08:59 Insulin Aspart (NovoLOG) BEFORE MEALS AND HS SUBQ 06/14/17 23:00 07/14/17 22:59 Lorazepam (Ativan 2mg/ml 1ml) 0.5 mg Q4H PRN IV For Anxiety 06/14/17 21:15 06/21/17 21:14 Midodrine (Pro-Amatine) 5 mg THREE TIMES A DAY ORAL 06/16/17 11:00 07/16/17 10:59 06/19/17 13:33 Morphine Sulfate (Morphine Sulfate) 1 mg Q4H PRN IVP For Pain 7-10 06/17/17 16:00 06/24/17 15:59 Morphine Sulfate (Morphine Sulfate) 2 mg Q1H PRN IVP Severe Pain (Pain Scale 7-10) 06/18/17 15:30 06/25/17 15:29 Nateglinide (Starlix) 30 mg TIAC ORAL 06/18/17 06:30 07/18/17 06:29 06/19/17 12:33 Nitroglycerin (Ntg) 0.4 mg Q5M X 3 DOSES PRN SL Prn Chest Pain 06/14/17 21:15 07/14/17 21:14 Ondansetron HCl (Zofran) 4 mg Q6H PRN IVP Nausea & Vomiting 06/18/17 15:30 07/18/17 15:29 Polyethylene Glycol (Miralax) 17 gm HSPRN PRN ORAL Constipation 06/14/17 21:15 07/14/17 21:14 Temazepam (Restoril) 15 mg HSPRN PRN ORAL Insomnia 06/14/17 21:15 06/21/17 21:14 JERI KHAN Jun 19, 2017 16:30
--- NOTE | 2017-06-19 16:45 | Cardiology Progress Note ---
Assessment/Plan Problem List: (1) CHF (congestive heart failure) (2) Syncope (3) CAD (coronary artery disease) (4) recurrent syncope episodes, (5) Cardiomyopathy Status: stable, progressing Status Narrative Hx of ischemic cm/ CHF S/p ICD, single chamber Pt w/ orthostatic hypotension assoc w/ dec in SBP to 50s -60s on 06/17 - ? autonomic insufficiency Assessment/Plan Continue current meds. Follow orthostatic VS - - consider proamitine PT evaluation - inc mobility Subjective ROS Limited/Unobtainable: No Subjective Cardiology for Dr. Us Pt is without c/o CP, dyspnea at rest. c/o fatigue. Has not ambulated Objective Last 24 Hour Vital Signs Date Time Temp Pulse Resp B/P (MAP) Pulse Ox O2 Delivery O2 Flow Rate FiO2 06/19/17 12:00 97.8 95 20 119/75 95 Room Air 06/19/17 12:00 93 06/19/17 08:07 72 16 Room Air 06/19/17 08:00 97.0 91 18 114/64 95 Room Air 06/19/17 08:00 91 06/19/17 04:00 97.2 84 18 158/83 96 Room Air 06/19/17 03:47 77 06/19/17 00:00 97.9 70 16 136/64 98 Room Air 2.0 06/18/17 23:52 74 06/18/17 21:13 75 16 Room Air 06/18/17 20:00 81 06/18/17 20:00 97.9 79 18 126/64 100 Nasal Cannula 2.0 General Appearance: WD/WN, no apparent distress, alert EENT: PERRL/EOMI Neck: supple, no JVD Rhythm: NSR Cardiovascular: normal rate, regular rhythm, no gallop/murmur Respiratory/Chest: lungs clear - clear anteriorly. L infraclav site - dermabond dressing, other Abdomen: normal bowel sounds, non tender, soft Extremities: no swelling Laboratory Tests Test 06/19/17 05:40 White Blood Count 3.2 K/UL (4.8-10.8) L Red Blood Count 3.62 M/UL (4.20-5.40) L Hemoglobin 11.1 G/DL (12.0-16.0) L Hematocrit 34.5 % (37.0-47.0) L Mean Corpuscular Volume 95 FL (80-99) Mean Corpuscular Hemoglobin 30.5 PG (27.0-31.0) Mean Corpuscular Hemoglobin Concent 32.0 G/DL (32.0-36.0) Red Cell Distribution Width 16.1 % (11.6-14.8) H Platelet Count 229 K/UL (150-450) Mean Platelet Volume 7.3 FL (6.5-10.1) Neutrophils (%) (Auto) % (45.0-75.0) Lymphocytes (%) (Auto) % (20.0-45.0) Monocytes (%) (Auto) % (1.0-10.0) Eosinophils (%) (Auto) % (0.0-3.0) Basophils (%) (Auto) % (0.0-2.0) Differential Total Cells Counted 100 Neutrophils % (Manual) 61 % (45-75) Lymphocytes % (Manual) 28 % (20-45) Monocytes % (Manual) 8 % (1-10) Eosinophils % (Manual) 3 % (0-3) Basophils % (Manual) 0 % (0-2) Band Neutrophils 0 % (0-8) Platelet Estimate Adequate Platelet Morphology Normal Sodium Level 140 MMOL/L (136-145) Potassium Level 4.3 MMOL/L (3.5-5.1) Chloride Level 108 MMOL/L (98-107) H Carbon Dioxide Level 21 MMOL/L (21-32) Anion Gap 11 mmol/L (5-15) Blood Urea Nitrogen 21 mg/dL (7-18) H Creatinine 1.4 MG/DL (0.55-1.30) H Estimat Glomerular Filtration Rate mL/min (>60) Glucose Level 111 MG/DL (74-106) H Calcium Level 9.0 MG/DL (8.5-10.1) SABINE VARMA Jun 19, 2017 16:45
[2017-06-19 20:00] VITALS: BP 124/72
[2017-06-20] VITALS: BP 138/78
[2017-06-20 04:00] VITALS: BP 115/58
[2017-06-20] MEDS: ceFAZolin sod 1 GM in D5W 55 ML IVP SCH ×3 (05:36→21:28)
[2017-06-20] MEDS: Nateglinide 60mg tab ORAL SCH ×3 (06:28→17:08)
[2017-06-20] MEDS: NovoLOG Insulin Flexpen SUBQ SCH ×4 (06:29→21:00)
[2017-06-20 07:52] LABS: BASOPHILS % (AUTO) 1.2 % (0.0-2.0); EOSINOPHILS % (AUTO) 2.7 % (0.0-3.0); LYMPHOCYTES % (AUTO) 35.1 % (20.0-45.0); MEAN CORPUSCULAR HEMOGLOBIN 31.2 PG (27.0-31.0); MEAN CORPUSCULAR VOLUME 95 FL (80-99); MEAN PLATELET VOLUME 7.4 FL (6.5-10.1); MONOCYTES % (AUTO) 7.2 % (1.0-10.0); NEUTROPHILS % (AUTO) 53.8 % (45.0-75.0); PLATELET COUNT 213 K/UL (150-450); RED BLOOD COUNT 3.51 M/UL (4.20-5.40); RED CELL DISTRIBUTION WIDTH 16.5 % (11.6-14.8); WHITE BLOOD COUNT 6.7 K/UL (4.8-10.8)
[2017-06-20 08:26] VITALS: BP 134/71
[2017-06-20] MEDS: Aspirin Baby 81mg ORAL SCH (08:58)
[2017-06-20] MEDS: Heparin 5000 units/ml inj SUBQ SCH ×2 (09:00→21:32)
[2017-06-20 09:27] LABS: ANION GAP 17 mmol/L (5-15); CALCIUM 9.4 MG/DL (8.5-10.1); CARBON DIOXIDE 16 MMOL/L (21-32); CHLORIDE 107 MMOL/L (98-107); CREATININE 1.4 MG/DL (0.55-1.30); POTASSIUM 4.2 MMOL/L (3.5-5.1); SODIUM 140 MMOL/L (136-145)
[2017-06-20 11:51] VITALS: BP 128/63
--- NOTE | 2017-06-20 13:26 | Cardiac Electrophysiology PN ---
Assessment/Plan Assessment/Plan 1. Recurrent Syncopal episodes in a patient with severe ischemic cardiomyopathy with ejection fraction of 28% at [facility] as well as hx of CABG. S/P single chamber ICD implant by me on 06/18/17. ICD interrogated and showed Nl Fx. CXR no PtX. 2. History of coronary artery bypass graft, on aspirin and Plavix. 3. 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 Per Dr Us. Off Betra Blockers or ACEI or Aldactone for low BP. On Midodrine. Lasix 40 mg iv once today as BNP increased to 7000. 4. Diabetes. 5. History of cerebrovascular accident. 6. Low BP on Midodrine. CAMDEN RN Subjective Subjective No chest pain or SOB. On tele. No oozing or bleeding from ICD site. Objective Last 24 Hour Vital Signs Date Time Temp Pulse Resp B/P (MAP) Pulse Ox O2 Delivery O2 Flow Rate FiO2 06/20/17 11:51 97.9 89 18 128/63 99 Room Air 06/20/17 08:26 97.0 90 18 134/71 98 Room Air 06/20/17 07:54 60 16 Room Air 06/20/17 04:00 97.0 78 16 115/58 96 Room Air 2.0 06/20/17 04:00 84 06/20/17 00:00 79 06/20/17 00:00 97.3 82 16 138/78 96 Room Air 2.0 06/19/17 20:36 77 16 Room Air 06/19/17 20:00 84 06/19/17 20:00 97.0 80 18 124/72 80 Room Air 2.0 06/19/17 19:46 97.2 06/19/17 18:30 89 105 63 06/19/17 16:00 74 06/19/17 16:00 97.1 81 18 124/63 99 Room Air Intake and Output 06/20/17 06/21/17 19:00 07:00 Intake Total 120 ml Output Total 200 ml Balance -80 ml Intake Oral 120 ml Output Urine Total 200 ml Laboratory Tests Test 06/20/17 06:25 White Blood Count 6.7 K/UL (4.8-10.8) # Red Blood Count 3.51 M/UL (4.20-5.40) L Hemoglobin 10.9 G/DL (12.0-16.0) L Hematocrit 33.1 % (37.0-47.0) L Mean Corpuscular Volume 95 FL (80-99) Mean Corpuscular Hemoglobin 31.2 PG (27.0-31.0) H Mean Corpuscular Hemoglobin Concent 33.0 G/DL (32.0-36.0) Red Cell Distribution Width 16.5 % (11.6-14.8) H Platelet Count 213 K/UL (150-450) Mean Platelet Volume 7.4 FL (6.5-10.1) Neutrophils (%) (Auto) 53.8 % (45.0-75.0) Lymphocytes (%) (Auto) 35.1 % (20.0-45.0) Monocytes (%) (Auto) 7.2 % (1.0-10.0) Eosinophils (%) (Auto) 2.7 % (0.0-3.0) Basophils (%) (Auto) 1.2 % (0.0-2.0) Sodium Level 140 MMOL/L (136-145) Potassium Level 4.2 MMOL/L (3.5-5.1) Chloride Level 107 MMOL/L (98-107) Carbon Dioxide Level 16 MMOL/L (21-32) L Anion Gap 17 mmol/L (5-15) H Blood Urea Nitrogen 19 mg/dL (7-18) H Creatinine 1.4 MG/DL (0.55-1.30) H Estimat Glomerular Filtration Rate mL/min (>60) Glucose Level 106 MG/DL (74-106) Calcium Level 9.4 MG/DL (8.5-10.1) Troponin I 0.024 ng/mL (0.000-0.056) Pro-B-Type Natriuretic Peptide 6993 pg/mL (0-125) H Objective HEAD AND NECK: Shows no JVD. LUNGS: Clear. CARDIOVASCULAR: Shows regular S1 and S2 with no gallop. Sternotomy is intact.ICD site left subclavian with no hematoma or oozing. ABDOMEN: Soft. EXTREMITIES: No pitting edema. ULISES ALVAREZ Jun 20, 2017 13:26
--- NOTE | 2017-06-20 15:45 | General Progress Note ---
Assessment/Plan Problem List: (1) Diabetes mellitus ICD Codes: E11.9 - Type 2 diabetes mellitus without complications SNOMED: 93668921 (2) Dementia ICD Codes: F03.90 - Unspecified dementia without behavioral disturbance SNOMED: 81794145 (3) CAD (coronary artery disease) ICD Codes: I25.10 - Atherosclerotic heart disease of [place] coronary artery without angina pectoris SNOMED: 91405158 (4) Cardiomyopathy ICD Codes: I42.9 - Cardiomyopathy, unspecified SNOMED: 03211402 Assessment/Plan continue Starlix 30 mg ac tid continue SSI - no need for insulin after DC Subjective Allergies: Coded Allergies: No Known Allergies (Unverified , 06/14/17) All Systems: reviewed and negative except above Subjective events noted Objective Last 24 Hour Vital Signs Date Time Temp Pulse Resp B/P (MAP) Pulse Ox O2 Delivery O2 Flow Rate FiO2 06/20/17 11:51 97.9 89 18 128/63 99 Room Air 06/20/17 08:26 97.0 90 18 134/71 98 Room Air 06/20/17 07:54 60 16 Room Air 06/20/17 04:00 97.0 78 16 115/58 96 Room Air 2.0 06/20/17 04:00 84 06/20/17 00:00 79 06/20/17 00:00 97.3 82 16 138/78 96 Room Air 2.0 06/19/17 20:36 77 16 Room Air 06/19/17 20:00 84 06/19/17 20:00 97.0 80 18 124/72 80 Room Air 2.0 06/19/17 19:46 97.2 06/19/17 18:30 89 105 63 06/19/17 16:00 74 06/19/17 16:00 97.1 81 18 124/63 99 Room Air Intake and Output 06/20/17 06/21/17 19:00 07:00 Intake Total 120 ml Output Total 200 ml Balance -80 ml Intake Oral 120 ml Output Urine Total 200 ml Laboratory Tests 06/20/17 06:25: White Blood Count 6.7#, Red Blood Count 3.51L, Hemoglobin 10.9L, Hematocrit 33.1L, Mean Corpuscular Volume 95, Mean Corpuscular Hemoglobin 31.2H, Mean Corpuscular Hemoglobin Concent 33.0, Red Cell Distribution Width 16.5H, Platelet Count 213, Mean Platelet Volume 7.4, Neutrophils (%) (Auto) 53.8, Lymphocytes (%) (Auto) 35.1, Monocytes (%) (Auto) 7.2, Eosinophils (%) (Auto) 2.7, Basophils (%) (Auto) 1.2, Sodium Level 140, Potassium Level 4.2, Chloride Level 107, Carbon Dioxide Level 16L, Anion Gap 17H, Blood Urea Nitrogen 19H, Creatinine 1.4H, Estimat Glomerular Filtration Rate , Glucose Level 106, Calcium Level 9.4, Troponin I 0.024, Pro-B-Type Natriuretic Peptide 6993H Height (Feet): 5 Height (Inches): 6.00 Weight (Pounds): 147 General Appearance: no apparent distress EENT: PERRL/EOMI Neck: normal alignment Cardiovascular: normal rate Respiratory/Chest: lungs clear Abdomen: non tender Pelvis: normal external exam Edema: no edema noted Arm (L), no edema noted Arm (R), no edema noted Leg (L), no edema noted Leg (R), no edema noted Pedal (L), no edema noted Pedal (R), no edema noted Generalized Objective Current Medications Medications (Trade) Dose Ordered Sig/Yoana Route PRN Reason Start Time Stop Time Status Last Admin Dose Admin Acetaminophen (Tylenol) 650 mg Q4H PRN ORAL fever 06/14/17 21:15 07/14/17 21:14 06/19/17 18:47 Acetaminophen (Tylenol) 650 mg Q6H PRN ORAL Fever/Headache/Mild Pain 06/18/17 15:30 07/18/17 15:29 Acetaminophen/ Codeine Phosphate (Tylenol #3) 1 tab Q4H PRN ORAL Moderate Pain (Pain Scale 4-6) 06/18/17 15:30 06/25/17 15:29 Al Hydroxide/Mg Hydroxide (Mylanta II) 30 ml Q6H PRN ORAL dyspepsia 06/14/17 21:15 07/14/17 21:14 Aspirin (ASA) 81 mg DAILY ORAL 06/15/17 17:00 07/15/17 16:59 06/20/17 08:58 Cefazolin Sodium 1 gm/Dextrose 55 ml @ 110 mls/hr Q8HR IVP 06/18/17 22:00 06/25/17 21:59 06/20/17 14:09 Clonidine HCl (Catapres) 0.1 mg Q4H PRN ORAL SBP > 160 06/14/17 21:15 07/14/17 21:14 Clopidogrel Bisulfate (Plavix) 75 mg DAILY ORAL 06/15/17 17:00 07/15/17 16:59 06/20/17 08:58 Dextrose (Dextrose 50%) STAT PRN IV Hypoglycemia 06/14/17 21:15 07/14/17 21:14 Heparin Sodium (Porcine) (Heparin 5000 units/ml) 5,000 units EVERY 12 HOURS SUBQ 06/15/17 09:00 07/15/17 08:59 06/20/17 09:00 Insulin Aspart (NovoLOG) BEFORE MEALS AND HS SUBQ 06/14/17 23:00 07/14/17 22:59 Lorazepam (Ativan 2mg/ml 1ml) 0.5 mg Q4H PRN IV For Anxiety 06/14/17 21:15 06/21/17 21:14 Midodrine (Pro-Amatine) 5 mg THREE TIMES A DAY ORAL 06/20/17 18:00 07/20/17 17:59 Morphine Sulfate (Morphine Sulfate) 1 mg Q4H PRN IVP For Pain 7-10 06/17/17 16:00 06/24/17 15:59 Morphine Sulfate (Morphine Sulfate) 2 mg Q1H PRN IVP Severe Pain (Pain Scale 7-10) 06/18/17 15:30 06/25/17 15:29 Nateglinide (Starlix) 30 mg TIAC ORAL 06/18/17 06:30 07/18/17 06:29 06/20/17 12:42 Nitroglycerin (Ntg) 0.4 mg Q5M X 3 DOSES PRN SL Prn Chest Pain 06/14/17 21:15 07/14/17 21:14 Ondansetron HCl (Zofran) 4 mg Q6H PRN IVP Nausea & Vomiting 06/18/17 15:30 07/18/17 15:29 Polyethylene Glycol (Miralax) 17 gm HSPRN PRN ORAL Constipation 06/14/17 21:15 07/14/17 21:14 Temazepam (Restoril) 15 mg HSPRN PRN ORAL Insomnia 06/14/17 21:15 06/21/17 21:14 Item Value Date Time Bedside Blood Glucose 151 mg/dl H 06/20/17 1130 Bedside Blood Glucose 106 mg/dl 06/20/17 0630 Bedside Blood Glucose 179 mg/dl H 06/19/17 2100 ELINOR CADET Jun 20, 2017 15:45
[2017-06-20 16:05] VITALS: BP 139/61
--- NOTE | 2017-06-20 17:00 | Internal Med Progress Note ---
Subjective Date of Service: Jun 20, 2017 Physician Name EmilyTripp Attending Physician Kishan Beckman MD Current Medications Medications (Trade) Dose Ordered Sig/Yoana Route PRN Reason Start Time Stop Time Status Last Admin Dose Admin Acetaminophen (Tylenol) 650 mg Q4H PRN ORAL fever 06/14/17 21:15 07/14/17 21:14 06/19/17 18:47 Acetaminophen (Tylenol) 650 mg Q6H PRN ORAL Fever/Headache/Mild Pain 06/18/17 15:30 07/18/17 15:29 Acetaminophen/ Codeine Phosphate (Tylenol #3) 1 tab Q4H PRN ORAL Moderate Pain (Pain Scale 4-6) 06/18/17 15:30 06/25/17 15:29 Al Hydroxide/Mg Hydroxide (Mylanta II) 30 ml Q6H PRN ORAL dyspepsia 06/14/17 21:15 07/14/17 21:14 Aspirin (ASA) 81 mg DAILY ORAL 06/15/17 17:00 07/15/17 16:59 06/20/17 08:58 Cefazolin Sodium 1 gm/Dextrose 55 ml @ 110 mls/hr Q8HR IVP 06/18/17 22:00 06/25/17 21:59 06/20/17 14:09 Clonidine HCl (Catapres) 0.1 mg Q4H PRN ORAL SBP > 160 06/14/17 21:15 07/14/17 21:14 Clopidogrel Bisulfate (Plavix) 75 mg DAILY ORAL 06/15/17 17:00 07/15/17 16:59 06/20/17 08:58 Dextrose (Dextrose 50%) STAT PRN IV Hypoglycemia 06/14/17 21:15 07/14/17 21:14 Heparin Sodium (Porcine) (Heparin 5000 units/ml) 5,000 units EVERY 12 HOURS SUBQ 06/15/17 09:00 07/15/17 08:59 06/20/17 09:00 Insulin Aspart (NovoLOG) BEFORE MEALS AND HS SUBQ 06/14/17 23:00 07/14/17 22:59 Lorazepam (Ativan 2mg/ml 1ml) 0.5 mg Q4H PRN IV For Anxiety 06/14/17 21:15 06/21/17 21:14 Midodrine (Pro-Amatine) 5 mg THREE TIMES A DAY ORAL 06/20/17 18:00 07/20/17 17:59 Morphine Sulfate (Morphine Sulfate) 1 mg Q4H PRN IVP For Pain 7-10 06/17/17 16:00 06/24/17 15:59 Morphine Sulfate (Morphine Sulfate) 2 mg Q1H PRN IVP Severe Pain (Pain Scale 7-10) 06/18/17 15:30 06/25/17 15:29 Nateglinide (Starlix) 30 mg TIAC ORAL 06/18/17 06:30 07/18/17 06:29 06/20/17 12:42 Nitroglycerin (Ntg) 0.4 mg Q5M X 3 DOSES PRN SL Prn Chest Pain 06/14/17 21:15 07/14/17 21:14 Ondansetron HCl (Zofran) 4 mg Q6H PRN IVP Nausea & Vomiting 06/18/17 15:30 07/18/17 15:29 Polyethylene Glycol (Miralax) 17 gm HSPRN PRN ORAL Constipation 06/14/17 21:15 07/14/17 21:14 Temazepam (Restoril) 15 mg HSPRN PRN ORAL Insomnia 06/14/17 21:15 06/21/17 21:14 Allergies: Coded Allergies: No Known Allergies (Unverified , 06/14/17) ROS Limited/Unobtainable: No Constitutional: Reports: no symptoms HEENT: Reports: no symptoms Cardiovascular: Reports: no symptoms Respiratory: Reports: no symptoms Gastrointestinal/Abdominal: Reports: no symptoms Genitourinary: Reports: no symptoms Neurologic/Psychiatric: Reports: no symptoms Subjective 76 YO F admitted with syncope. Cover for Int Med-Dr Beckman.. S/P AICD Wednesday Objective Last Vital Signs Date Time Temp Pulse Resp B/P (MAP) Pulse Ox O2 Delivery O2 Flow Rate FiO2 06/20/17 16:05 97.5 77 18 139/61 98 Room Air 06/20/17 04:00 2.0 Laboratory Tests Test 06/20/17 06:25 White Blood Count 6.7 K/UL (4.8-10.8) # Red Blood Count 3.51 M/UL (4.20-5.40) L Hemoglobin 10.9 G/DL (12.0-16.0) L Hematocrit 33.1 % (37.0-47.0) L Mean Corpuscular Volume 95 FL (80-99) Mean Corpuscular Hemoglobin 31.2 PG (27.0-31.0) H Mean Corpuscular Hemoglobin Concent 33.0 G/DL (32.0-36.0) Red Cell Distribution Width 16.5 % (11.6-14.8) H Platelet Count 213 K/UL (150-450) Mean Platelet Volume 7.4 FL (6.5-10.1) Neutrophils (%) (Auto) 53.8 % (45.0-75.0) Lymphocytes (%) (Auto) 35.1 % (20.0-45.0) Monocytes (%) (Auto) 7.2 % (1.0-10.0) Eosinophils (%) (Auto) 2.7 % (0.0-3.0) Basophils (%) (Auto) 1.2 % (0.0-2.0) Sodium Level 140 MMOL/L (136-145) Potassium Level 4.2 MMOL/L (3.5-5.1) Chloride Level 107 MMOL/L (98-107) Carbon Dioxide Level 16 MMOL/L (21-32) L Anion Gap 17 mmol/L (5-15) H Blood Urea Nitrogen 19 mg/dL (7-18) H Creatinine 1.4 MG/DL (0.55-1.30) H Estimat Glomerular Filtration Rate mL/min (>60) Glucose Level 106 MG/DL (74-106) Calcium Level 9.4 MG/DL (8.5-10.1) Troponin I 0.024 ng/mL (0.000-0.056) Pro-B-Type Natriuretic Peptide 6993 pg/mL (0-125) H Intake and Output 06/20/17 06/21/17 19:00 07:00 Intake Total 240 ml Output Total 400 ml Balance -160 ml Intake Oral 240 ml Output Urine Total 400 ml Objective General Appearance: WD/WN, no apparent distress, alert EENT: PERRL/EOMI, normal ENT inspection Neck: non-tender, normal alignment, supple Cardiovascular: normal peripheral pulses, normal rate, regular rhythm, no gallop/murmur, no JVD, other - hypotensive Respiratory/Chest: chest wall non-tender, lungs clear, normal breath sounds, no respiratory distress, no accessory muscle use Abdomen: normal bowel sounds, non tender, soft, no organomegaly, no mass Extremities: normal range of motion 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 S/P AICD placement Wed06/18/17--see EP cardiology note(Dr Childs). (2) Cerebral vascular disease (3) Syncope Assessment & Plan: MRI brain=no acute dis. See neruo and cardiol note. (4) Diabetes mellitus Assessment & Plan: See endocrinology note. Continue starlix and novolog sliding scale. (5) CAD (coronary artery disease) Assessment & Plan: S/P CABG. See Cardiology note - Dr Us Assessment/Plan Discharge planning: home health with home PT TRIPP RODRIGUEZ Jun 20, 2017 17:00
--- NOTE | 2017-06-20 18:28 | Pulmonology Progress Note ---
Assessment/Plan Problems: (1) Cardiomyopathy (2) Syncope (3) Diabetes mellitus (4) CAD (coronary artery disease) (5) Dementia (6) Cerebral vascular disease Assessment/Plan s/p ICD yesterday EF 28% symptomatic treatment keep in teli all meds and notes reviewed dc planning if ok with cardio Subjective ROS Limited/Unobtainable: No Constitutional: Reports: no symptoms HEENT: Repors: no symptoms Respiratory: Reports: no symptoms Allergies: Coded Allergies: No Known Allergies (Unverified , 06/14/17) Objective Last 24 Hour Vital Signs Date Time Temp Pulse Resp B/P (MAP) Pulse Ox O2 Delivery O2 Flow Rate FiO2 06/20/17 16:05 97.5 77 18 139/61 98 Room Air 06/20/17 12:00 86 06/20/17 11:51 97.9 89 18 128/63 99 Room Air 06/20/17 08:26 97.0 90 18 134/71 98 Room Air 06/20/17 08:00 91 06/20/17 07:54 60 16 Room Air 06/20/17 04:00 97.0 78 16 115/58 96 Room Air 2.0 06/20/17 04:00 84 06/20/17 00:00 79 06/20/17 00:00 97.3 82 16 138/78 96 Room Air 2.0 06/19/17 20:36 77 16 Room Air 06/19/17 20:00 84 06/19/17 20:00 97.0 80 18 124/72 80 Room Air 2.0 06/19/17 19:46 97.2 06/19/17 18:30 89 105 63 Intake and Output 06/20/17 06/21/17 19:00 07:00 Intake Total 240 ml Output Total 400 ml Balance -160 ml Intake Oral 240 ml Output Urine Total 400 ml General Appearance: no acute distress HEENT: normocephalic, atraumatic Respiratory/Chest: chest wall non-tender, lungs clear Breasts: no masses Cardiovascular: normal peripheral pulses Abdomen: normal bowel sounds, soft, non tender Genitourinary: normal external genitalia Extremities: no cyanosis Skin: no rash 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 Laboratory Tests 06/20/17 06:25: White Blood Count 6.7#, Red Blood Count 3.51L, Hemoglobin 10.9L, Hematocrit 33.1L, Mean Corpuscular Volume 95, Mean Corpuscular Hemoglobin 31.2H, Mean Corpuscular Hemoglobin Concent 33.0, Red Cell Distribution Width 16.5H, Platelet Count 213, Mean Platelet Volume 7.4, Neutrophils (%) (Auto) 53.8, Lymphocytes (%) (Auto) 35.1, Monocytes (%) (Auto) 7.2, Eosinophils (%) (Auto) 2.7, Basophils (%) (Auto) 1.2, Sodium Level 140, Potassium Level 4.2, Chloride Level 107, Carbon Dioxide Level 16L, Anion Gap 17H, Blood Urea Nitrogen 19H, Creatinine 1.4H, Estimat Glomerular Filtration Rate , Glucose Level 106, Calcium Level 9.4, Troponin I 0.024, Pro-B-Type Natriuretic Peptide 6993H Current Medications Medications (Trade) Dose Ordered Sig/Yoana Route PRN Reason Start Time Stop Time Status Last Admin Dose Admin Acetaminophen (Tylenol) 650 mg Q4H PRN ORAL fever 06/14/17 21:15 07/14/17 21:14 06/19/17 18:47 Acetaminophen (Tylenol) 650 mg Q6H PRN ORAL Fever/Headache/Mild Pain 06/18/17 15:30 07/18/17 15:29 06/20/17 17:12 Acetaminophen/ Codeine Phosphate (Tylenol #3) 1 tab Q4H PRN ORAL Moderate Pain (Pain Scale 4-6) 06/18/17 15:30 06/25/17 15:29 Al Hydroxide/Mg Hydroxide (Mylanta II) 30 ml Q6H PRN ORAL dyspepsia 06/14/17 21:15 07/14/17 21:14 Aspirin (ASA) 81 mg DAILY ORAL 06/15/17 17:00 07/15/17 16:59 06/20/17 08:58 Cefazolin Sodium 1 gm/Dextrose 55 ml @ 110 mls/hr Q8HR IVP 06/18/17 22:00 06/25/17 21:59 06/20/17 14:09 Clonidine HCl (Catapres) 0.1 mg Q4H PRN ORAL SBP > 160 06/14/17 21:15 07/14/17 21:14 Clopidogrel Bisulfate (Plavix) 75 mg DAILY ORAL 06/15/17 17:00 07/15/17 16:59 06/20/17 08:58 Dextrose (Dextrose 50%) STAT PRN IV Hypoglycemia 06/14/17 21:15 07/14/17 21:14 Heparin Sodium (Porcine) (Heparin 5000 units/ml) 5,000 units EVERY 12 HOURS SUBQ 06/15/17 09:00 07/15/17 08:59 06/20/17 09:00 Insulin Aspart (NovoLOG) BEFORE MEALS AND HS SUBQ 06/14/17 23:00 07/14/17 22:59 Lorazepam (Ativan 2mg/ml 1ml) 0.5 mg Q4H PRN IV For Anxiety 06/14/17 21:15 06/21/17 21:14 Midodrine (Pro-Amatine) 5 mg THREE TIMES A DAY ORAL 06/20/17 18:00 07/20/17 17:59 Morphine Sulfate (Morphine Sulfate) 1 mg Q4H PRN IVP For Pain 7-10 06/17/17 16:00 06/24/17 15:59 Morphine Sulfate (Morphine Sulfate) 2 mg Q1H PRN IVP Severe Pain (Pain Scale 7-10) 06/18/17 15:30 06/25/17 15:29 Nateglinide (Starlix) 30 mg TIAC ORAL 06/18/17 06:30 07/18/17 06:29 06/20/17 17:08 Nitroglycerin (Ntg) 0.4 mg Q5M X 3 DOSES PRN SL Prn Chest Pain 06/14/17 21:15 07/14/17 21:14 Ondansetron HCl (Zofran) 4 mg Q6H PRN IVP Nausea & Vomiting 06/18/17 15:30 07/18/17 15:29 Polyethylene Glycol (Miralax) 17 gm HSPRN PRN ORAL Constipation 06/14/17 21:15 07/14/17 21:14 Temazepam (Restoril) 15 mg HSPRN PRN ORAL Insomnia 06/14/17 21:15 06/21/17 21:14 JERI KHAN Jun 20, 2017 18:28
[2017-06-20 20:00] VITALS: BP 137/70
[2017-06-21] VITALS: BP 141/70
[2017-06-21 04:00] VITALS: BP 127/65
[2017-06-21] MEDS: NovoLOG Insulin Flexpen SUBQ SCH ×2 (06:25→11:30)
[2017-06-21] MEDS: ceFAZolin sod 1 GM in D5W 55 ML IVP SCH ×2 (06:25→13:53)
[2017-06-21] MEDS: Nateglinide 60mg tab ORAL SCH ×2 (06:25→11:35)
[2017-06-21 08:15] LABS: BASOPHILS % (AUTO) 1.1 % (0.0-2.0); EOSINOPHILS % (AUTO) 3.4 % (0.0-3.0); MEAN CORPUSCULAR HEMOGLOBIN 31.9 PG (27.0-31.0); MEAN CORPUSCULAR HGB CONC 33.4 G/DL (32.0-36.0); MEAN CORPUSCULAR VOLUME 96 FL (80-99); MONOCYTES % (AUTO) 8.3 % (1.0-10.0); NEUTROPHILS % (AUTO) 52.3 % (45.0-75.0); PLATELET COUNT 203 K/UL (150-450); RED BLOOD COUNT 3.62 M/UL (4.20-5.40); RED CELL DISTRIBUTION WIDTH 16.4 % (11.6-14.8); WHITE BLOOD COUNT 6.2 K/UL (4.8-10.8)
--- NOTE | 2017-06-21 08:18 | General Progress Note ---
Assessment/Plan Problem List: (1) Diabetes mellitus ICD Codes: E11.9 - Type 2 diabetes mellitus without complications SNOMED: 50591980 (2) Dementia ICD Codes: F03.90 - Unspecified dementia without behavioral disturbance SNOMED: 77578780 (3) CAD (coronary artery disease) ICD Codes: I25.10 - Atherosclerotic heart disease of [place] coronary artery without angina pectoris SNOMED: 44066998 (4) Cardiomyopathy ICD Codes: I42.9 - Cardiomyopathy, unspecified SNOMED: 04580371 Assessment/Plan continue Starlix 30 mg ac tid continue SSI - no need for insulin after DC Subjective Allergies: Coded Allergies: No Known Allergies (Unverified , 06/14/17) All Systems: reviewed and negative except above Subjective events noted Objective Last 24 Hour Vital Signs Date Time Temp Pulse Resp B/P (MAP) Pulse Ox O2 Delivery O2 Flow Rate FiO2 06/21/17 07:40 64 16 Room Air 06/21/17 04:03 74 06/21/17 04:00 98.1 77 18 127/65 99 Room Air 06/21/17 00:11 82 06/21/17 00:00 98.1 83 19 141/70 98 Room Air 06/20/17 23:28 65 16 Room Air 06/20/17 22:14 62 16 Room Air 06/20/17 20:11 73 06/20/17 20:00 98.2 78 19 137/70 98 Room Air 06/20/17 18:30 85 89 126 06/20/17 16:05 97.5 77 18 139/61 98 Room Air 06/20/17 16:00 79 06/20/17 12:00 86 06/20/17 11:51 97.9 89 18 128/63 99 Room Air 06/20/17 08:26 97.0 90 18 134/71 98 Room Air Intake and Output 06/21/17 06/22/17 19:00 07:00 # Voids 1 Laboratory Tests 06/21/17 07:50: White Blood Count [Pending], Red Blood Count [Pending], Hemoglobin [Pending], Hematocrit [Pending], Mean Corpuscular Volume [Pending], Mean Corpuscular Hemoglobin [Pending], Mean Corpuscular Hemoglobin Concent [Pending], Red Cell Distribution Width [Pending], Platelet Count [Pending], Mean Platelet Volume [ Pending], Neutrophils (%) (Auto) [Pending], Lymphocytes (%) (Auto) [Pending], Monocytes (%) (Auto) [Pending], Eosinophils (%) (Auto) [Pending], Basophils (%) (Auto) [Pending], Sodium Level [Pending], Potassium Level [Pending], Chloride Level [Pending], Carbon Dioxide Level [Pending], Blood Urea Nitrogen [Pending], Creatinine [Pending], Estimat Glomerular Filtration Rate [Pending], Glucose Level [Pending], Calcium Level [Pending] Height (Feet): 5 Height (Inches): 6.00 Weight (Pounds): 147 General Appearance: no apparent distress Neck: normal alignment Cardiovascular: normal rate Respiratory/Chest: lungs clear Abdomen: normal bowel sounds Edema: 1+ Arm (L), 1+ Arm (R), 1+ Leg (L), 1+ Leg (R), 1+ Pedal (L), 1+ Pedal ( R), 1+ Generalized Objective Current Medications Medications (Trade) Dose Ordered Sig/Yoana Route PRN Reason Start Time Stop Time Status Last Admin Dose Admin Acetaminophen (Tylenol) 650 mg Q4H PRN ORAL fever 06/14/17 21:15 07/14/17 21:14 06/19/17 18:47 Acetaminophen (Tylenol) 650 mg Q6H PRN ORAL Fever/Headache/Mild Pain 06/18/17 15:30 07/18/17 15:29 06/20/17 17:12 Acetaminophen/ Codeine Phosphate (Tylenol #3) 1 tab Q4H PRN ORAL Moderate Pain (Pain Scale 4-6) 06/18/17 15:30 06/25/17 15:29 Al Hydroxide/Mg Hydroxide (Mylanta II) 30 ml Q6H PRN ORAL dyspepsia 06/14/17 21:15 07/14/17 21:14 Aspirin (ASA) 81 mg DAILY ORAL 06/15/17 17:00 07/15/17 16:59 06/20/17 08:58 Cefazolin Sodium 1 gm/Dextrose 55 ml @ 110 mls/hr Q8HR IVP 06/18/17 22:00 06/25/17 21:59 06/21/17 06:25 Clonidine HCl (Catapres) 0.1 mg Q4H PRN ORAL SBP > 160 06/14/17 21:15 07/14/17 21:14 Clopidogrel Bisulfate (Plavix) 75 mg DAILY ORAL 06/15/17 17:00 07/15/17 16:59 06/20/17 08:58 Dextrose (Dextrose 50%) STAT PRN IV Hypoglycemia 06/14/17 21:15 07/14/17 21:14 Heparin Sodium (Porcine) (Heparin 5000 units/ml) 5,000 units EVERY 12 HOURS SUBQ 06/15/17 09:00 07/15/17 08:59 06/20/17 21:32 Insulin Aspart (NovoLOG) BEFORE MEALS AND HS SUBQ 06/14/17 23:00 07/14/17 22:59 Lorazepam (Ativan 2mg/ml 1ml) 0.5 mg Q4H PRN IV For Anxiety 06/14/17 21:15 06/21/17 21:14 Midodrine (Pro-Amatine) 5 mg THREE TIMES A DAY ORAL 06/20/17 18:00 07/20/17 17:59 Morphine Sulfate (Morphine Sulfate) 1 mg Q4H PRN IVP For Pain 7-10 06/17/17 16:00 06/24/17 15:59 Morphine Sulfate (Morphine Sulfate) 2 mg Q1H PRN IVP Severe Pain (Pain Scale 7-10) 06/18/17 15:30 06/25/17 15:29 Nateglinide (Starlix) 30 mg TIAC ORAL 06/18/17 06:30 07/18/17 06:29 06/21/17 06:25 Nitroglycerin (Ntg) 0.4 mg Q5M X 3 DOSES PRN SL Prn Chest Pain 06/14/17 21:15 07/14/17 21:14 Ondansetron HCl (Zofran) 4 mg Q6H PRN IVP Nausea & Vomiting 06/18/17 15:30 07/18/17 15:29 Polyethylene Glycol (Miralax) 17 gm HSPRN PRN ORAL Constipation 06/14/17 21:15 07/14/17 21:14 Temazepam (Restoril) 15 mg HSPRN PRN ORAL Insomnia 06/14/17 21:15 06/21/17 21:14 Item Value Date Time Bedside Blood Glucose 105 mg/dl 06/21/17 0602 Bedside Blood Glucose 190 mg/dl H 06/20/17 2100 Bedside Blood Glucose 125 mg/dl H 06/20/17 1630 Bedside Blood Glucose 151 mg/dl H 06/20/17 1130 Bedside Blood Glucose 106 mg/dl 06/20/17 0630 ELINOR CADET Jun 21, 2017 08:18
[2017-06-21 08:23] LABS: ANION GAP 10 mmol/L (5-15); CALCIUM 9.3 MG/DL (8.5-10.1); CARBON DIOXIDE 25 MMOL/L (21-32); CHLORIDE 106 MMOL/L (98-107); CREATININE 1.5 MG/DL (0.55-1.30); POTASSIUM 3.9 MMOL/L (3.5-5.1); SODIUM 140 MMOL/L (136-145)
[2017-06-21 08:54] VITALS: BP 110/57
[2017-06-21] MEDS: Aspirin Baby 81mg ORAL SCH (09:07)
[2017-06-21] MEDS: Heparin 5000 units/ml inj SUBQ SCH (09:10)
--- NOTE | 2017-06-21 10:15 | Procedure Note ---
DATE OF PROCEDURE: 06/18/2017 DEFIBRILLATOR IMPLANTATION REPORT SURGEON: Jatinder Childs M.D. REFERRING PHYSICIAN: Kishan Beckman M.D. INDICATION FOR PROCEDURE: Severe ischemic cardiomyopathy in a patient with a history of prior myocardial infarction and coronary artery bypass graft as well as ejection fraction of around 30%. The patient has no history of atrial fibrillation and no history of bradycardia. PROCEDURE PERFORMED: 1. Single-chamber defibrillator implantation. 2. Fluoroscopic supervision and interpretation. OPERATIVE REPORT: The patient was brought into the operating room in a fasting state after informed consent was obtained. The patient was prepped and draped in the usual fashion. Conscious sedation was obtained by the anesthesiologist. After prep and drape and under sterile condition and after the patient received antibiotic, a total of 20 mL of lidocaine was given to the left prepectoralis area. An incision was made along the left deltopectoral groove. Sharp and blunt dissection was made to the pectoralis fascia. The cephalic vein was isolated. The cephalic vein cutdown was performed. Right ventricular lead was placed through this access and was placed in right ventricular apex with excellent pacing and sensing parameters. The lead was then affixed on the right pectoralis fascia. A pocket was made close to the venous access and was irrigated with antibiotic solution. The leads were then connected to the defibrillator and left in the pocket. The pocket was then closed in 3 layers using 2-0 Vicryl and Dermabond. The patient suffered no immediate complication from her procedure and was transferred to recovery room in stable condition. FINDINGS: Defibrillator is from [employer], MRI safe, serial number [id number]. The defibrillator lead is [employer] [id number], serial number is [id number]. The R-wave more than 20 millivolts, threshold is 0.7 volts at 0.5 milliseconds and impedance ohms and I had the voltage increased to 21 ohms. IMPRESSION: 1. Successful single-chamber defibrillator implantation. 2. Defibrillator was programmed to ventricular tachycardia at heart rate of 171 beats per minute, antitachycardia pacing x3, and then 30 shock. The ventricular fibrillation is at heart rates of more 214 beats per minute with post-therapy . 3. No immediate complications from the procedure. Jatinder Childs M.D. DR: Kenney JOB#: [id number] CC:
[2017-06-21 12:52] VITALS: BP 145/69
[2017-06-21] MEDS ORDERED: D5 1/2NS 1000ml IV ONE (16:17)
--- NOTE | 2017-06-21 18:08 | Pulmonology Progress Note ---
Assessment/Plan Problems: (1) Cardiomyopathy (2) Syncope (3) Diabetes mellitus (4) CAD (coronary artery disease) (5) Dementia (6) Cerebral vascular disease Assessment/Plan s/p ICD y EF 28% symptomatic treatment keep in teli all meds and notes reviewed dc planning i Subjective ROS Limited/Unobtainable: No Constitutional: Reports: no symptoms HEENT: Repors: no symptoms Respiratory: Reports: no symptoms Allergies: Coded Allergies: No Known Allergies (Unverified , 06/14/17) Objective Last 24 Hour Vital Signs Date Time Temp Pulse Resp B/P (MAP) Pulse Ox O2 Delivery O2 Flow Rate FiO2 06/21/17 12:52 97.2 88 18 145/69 98 Room Air 06/21/17 12:00 76 06/21/17 08:54 97.2 89 18 110/57 95 Room Air 06/21/17 08:00 87 06/21/17 07:40 64 16 Room Air 06/21/17 04:03 74 06/21/17 04:00 98.1 77 18 127/65 99 Room Air 06/21/17 00:11 82 06/21/17 00:00 98.1 83 19 141/70 98 Room Air 06/20/17 23:28 65 16 Room Air 06/20/17 22:14 62 16 Room Air 06/20/17 20:11 73 06/20/17 20:00 98.2 78 19 137/70 98 Room Air 06/20/17 18:30 85 89 126 Intake and Output 06/21/17 06/22/17 19:00 07:00 # Voids 1 Objective no new complains HEENT: normocephalic, atraumatic Respiratory/Chest: chest wall non-tender, lungs clear Breasts: no masses Cardiovascular: normal peripheral pulses Abdomen: normal bowel sounds, soft, non tender, no scars Extremities: no cyanosis Skin: no lesions Neurologic/Psychiatric: environmental health safety manager II-XII grossly normal Laboratory Tests 06/21/17 07:50: White Blood Count 6.2, Red Blood Count 3.62L, Hemoglobin 11.6L, Hematocrit 34.6L , Mean Corpuscular Volume 96, Mean Corpuscular Hemoglobin 31.9H, Mean Corpuscular Hemoglobin Concent 33.4, Red Cell Distribution Width 16.4H, Platelet Count 203, Mean Platelet Volume 7.0, Neutrophils (%) (Auto) 52.3, Lymphocytes (%) (Auto) 35.0, Monocytes (%) (Auto) 8.3, Eosinophils (%) (Auto) 3.4H, Basophils (%) (Auto) 1.1, Sodium Level 140, Potassium Level 3.9, Chloride Level 106, Carbon Dioxide Level 25, Anion Gap 10, Blood Urea Nitrogen 18, Creatinine 1.5H, Estimat Glomerular Filtration Rate , Glucose Level 97, Calcium Level 9.3 JERI KHAN Jun 21, 2017 18:08
--- NOTE | 2017-06-22 15:29 | Discharge Summary ---
Discharge Summary Hospital Course Date of Admission Jun 14, 2017 at 16:35 Date of Discharge Jun 21, 2017 at 16:18 Admitting Diagnosis HPI Devora Harding is a 76 year old female who was admitted on Jun 14, 2017 at 16:35 for Syncope Hospital Course dc summary #[id number] Discharge Condition Upon Discharge: stable Discharge Disposition Patient was discharged to Home with Home Health(06) Discharge Diagnoses: Discharge Instructions Discharge Instructions Special Instructions I have been assigned to complete a D/C Summary on this account. I was not involved in the patient management Anthony Scott)Melinda NP Jun 22, 2017 15:29
--- NOTE | 2017-06-23 04:00 | Discharge Summary 2 SIG ---
DATE OF ADMISSION: 06/14/2017 DATE OF DISCHARGE: 06/21/2017 REASON FOR ADMISSION: 76-year-old female, with a history of coronary artery disease, status post coronary artery bypass graft, chronic kidney disease stage 3, history of CVA, cardiomyopathy, diabetes, dementia, presented with a complaint of passing out. Apparently, the last episode happen when she was at home with her daughter on 06/14/2017. The patient slumped over after breakfast, lasted few minutes, and 911 was called by her daughter. The patient was alert when paperhanger apprentice arrived. The patient was transported to [facility] and after initial workup and ensuring that the patient was safe for transfer, the patient was transferred to [facility] for insurance purposes. The patient was admitted for recurrent syncopal episodes to rule out acute cerebrovascular accident versus acute myocardial infarction. HOSPITAL STAY: The patient was admitted to telemetry floor. Cardiology and Neurology consults along with Endocrinology and Pulmonary consults were requested. CT of the head revealed evidence of likely normal pressure hydrocephalus given disproportionate ventriculomegaly and mild atrophy. No acute intracranial pathology was noted. The patient was noted to have orthostatic blood pressure. The patient was started on midodrine. Neurologist also ordered EEG to rule out seizure activity. EEG revealed mild diffuse slowing, but no evidence of seizures on EEG. Per neurologist, the patient had probable NPH with cognitive loss and unstable gait. He recommended further cardiac workup to rule out arrhythmia and hydrate the patient. Lipid panel was within normal limits. Continue aspirin and Plavix. Rig Builder closely followed the patient. The patient had an echocardiogram done, which revealed ejection fraction of 30% to 35%, global left ventricular hypokinesis, and [id number] mitral regurgitation. The patient had a history of coronary artery disease, status post coronary artery bypass graft. Due to low blood pressure, the patient was off beta-nancy, Entresto, DIOGENES inhibitor, and diuretic. Rig Builder and slider assembler seen and evaluated the patient and stated that the patient with severe ischemic cardiomyopathy, had a recurrent syncopal episode. The patient needed an ICD implant-per cardio slider assembler. This issue was addressed and discussed with the patient and her daughter. The patient will need ICD implantation either in [facility] or in [facility]. Family decided to do ICD placement at [facility] at this admission. Subsequently, the patient undergone implantation of a single-chamber ICD on 06/18/2017. Chest x-ray post surgery, no pneumothorax. ICD was interrogated and showed normal function. Per chip bin operator, continue aspirin and Plavix. Lasix x1 given. for Pro BNP - 6993. Afterwards, no diuretic, no beta-nancy, no DIOGENES, and no Aldactone for now. Continue midodrine to support blood pressure. Hospital Aide followed the patient for blood sugar management. At the hospital, the patient was on Starlix as well as a sliding scale of insulin as needed. Per systematic theology professor, no need for insulin therapy after discharge. Blood sugar remained stable. Renal parameters and electrolytes were closely monitored. The patient has a history of chronic renal disease stage III. Renal ultrasound was negative. No evidence of hydronephrosis. Avoid nephrotoxics. Electrolytes replaced as needed. Recurrent syncopal episodes were likely due to the severe ischemic cardiomyopathy ( and need for AICD) and history of coronary artery bypass graft along with probable normal pressure hydrocephalus. The patient was stable for discharge home with home health services. FINAL DIAGNOSES: 1. Recurrent syncopal episode in the patient with severe ischemic cardiomyopathy and history of coronary artery bypass graft. 2. Status post single-chamber implantation of implantable cardioverter-defibrillator. 3. Post infarct ischemic cardiomyopathy. 4. Coronary artery disease, status post coronary artery bypass graft. 5. Chronic kidney disease , stage 3. 6. Diabetes mellitus. 7. 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 8. History of cerebrovascular accident. 9. Orthostatic hypotension. 10. Dementia. DISCHARGE MEDICATIONS: List of medication was sent home. DISCHARGE INSTRUCTIONS: The patient was discharged home with home health services. FOLLOWUP: Follow up with the primary medical doctor and chip bin operator. Kishan Beckman M.D. I have been assigned to dictate discharge summary on this account and I was not involved in the patient's management. Melinda Cruz (vanchtein) NAshlie DR: YOGESH JOB#: [id number] CC: RANDOLPH
== END 2017-06-21 16:18 | disposition home health service (06) | DRG 227 ==
LOC: 2E 16:35
PROC: 0JH608Z Insertion of Defibrillator Generator into Chest Subcutaneous Tissue and Fascia, Open Approach (ICD-10-PCS; principal; 2017-06-18 14:00)
PROC: 02HK3KZ Insertion of Defibrillator Lead into Right Ventricle, Percutaneous Approach (ICD-10-PCS; principal; 2017-06-18 14:00)
DX: I25.5 Ischemic cardiomyopathy (principal); I13.0 Hypertensive heart and chronic kidney disease with heart failure and stage 1 through stage 4 chronic kidney disease, or unspecified chronic kidney disease; I95.9 Hypotension, unspecified; G91.2 (Idiopathic) normal pressure hydrocephalus; I50.9 Heart failure, unspecified; G40.89 Other seizures; E11.22 Type 2 diabetes mellitus with diabetic chronic kidney disease; F03.90 Unspecified dementia, unspecified severity, without behavioral disturbance, psychotic disturbance, mood disturbance, and anxiety; N18.3 Chronic kidney disease, stage 3 (moderate); R55 Syncope and collapse; I25.10 Atherosclerotic heart disease of native coronary artery without angina pectoris; Z95.1 Presence of aortocoronary bypass graft; R26.9 Unspecified abnormalities of gait and mobility; I95.1 Orthostatic hypotension; Z86.73 Personal history of transient ischemic attack (TIA), and cerebral infarction without residual deficits; G30.9 Alzheimer's disease, unspecified; F02.80 Dementia in other diseases classified elsewhere, unspecified severity, without behavioral disturbance, psychotic disturbance, mood disturbance, and anxiety; E78.5 Hyperlipidemia, unspecified
CPT/HCPCS: 36415; 70450; 70551; 71010; 76001; 76775; 80048; 80053; 80061; 81001; 82550; 82962; 83880; 84133; 84300; 84443; 84484; 84550; 85007; 85025; 85610; 85730; 89050; 93306; 93880; 94003; 94150; 94664; 95819; J1815; J2250